=== PATIENT | female | born 1965 | race Caucasian/White ===

== ENCOUNTER 2022-08-04 08:43 | Outpatient (CLI) | payer BC, SELFPAY ==
--- OUTSIDE RECORDS SUMMARY | 2022-08-04 08:45 | XMS_ITS | Encounter Summary ---
:1965 Author Organization [place] Address [address] [facility] [place] [address] Care Team Providers Name Role Phone Sushma Jamison MD Primary Care Provider Unavailable Reason for Visit Auth/Cert Specialty Diagnoses / Procedures Referred By Contact Refer red To Contact Surgery Diagnoses Malignant neoplasm of upper-outer quadrant of left female breast, unspecified estrogen receptor status (H) Status post bilateral mastectomy Sh Periop Services Malignant neoplasm of upper- outer quadrant of left female breast, unspecified estrogen receptor status (H) [C50.412] Status post bilateral mastectomy [Z90.13] [address], [address] Procedures HC REMOVE W/O INSERT PROSTH TISSUE [facility] HC ENLARGE BREAST WITH IMPLANT HC INSERT BREAST PROS IMMED AFTER EXCIS HC DELAY BREAST PROS AFTER BREAST SURG HC BREAST RECONSTRUC W TISS EXPANDR LL2 ZZPR BREAST RECONSTRUCTION W /LATISSIMUS DORSI FLAP ZZPR BREAST RECONSTRUCTION W/FREE FLAP ZZPR BREAST RECONSTRUCTION SINGLE PEDICLED TRAM FLAP ZZPR BREAST RECONSTRUCTION 1PEDICLED TRAM FLAP ANAST ZZPR BREAST RECONSTRUCTION BIPEDICLED TRAM FLAP [place] [id number] HC GRAFTING OF AUTOLOGOUS SO FT TISS BY DIRECT EXC HC GRAFTING OF AUTOLOGOUS FAT BY LIPO 50 CC OR LESS REMOVAL BILATERAL TISSUE EXPANDERS EXCHANGE TISSUE EXPANDERS WITH BILATERAL SILICONE BREAST IMPLANTS BILATERAL BREAST FAT GRAFTING FROM ABDOMEN Phone: Referral ID Status Reason Start Date Expiration Date Visits Requ ested Visits Authorized [id number] 1 1 Encounter Details Date Type Department Care Team Description 03/07/[address] [facility] Radu Vazquez MD [facility] ANESTHESIOLOGISTS [facility] [address] [id number] Cristian MoffettHakeem Mccoy [facility] [address] [place] [address] Anesthesia Record Procedure Summary Procedure Name Responsible Anesthesia Start Anesthesia Stop Time Anesthesiologist Time REMOVAL BILATERAL Radu Vazquez MD 03/07/21 0727 03/07 0951 TISSUE EXPANDERS (Bilateral Breast) Events Date Time Event Comment 03/07/2021 0658 0709 STRADDLE BUG OPERATOR Ready for Procedure 0727 An Start 0727 An Start Data 0731 An Induction 0733 An LMA 0757 AN INCISION 0904 Present 0941 LMA Removed 0943 an stop data 0951 An Stop Electronically s igned by Nancy Nowak APRN CRNA on Feb 9:51 AM Name Total dexamethasone 4mg/mL 8 mg fentaNYL (SUBLIMAZE) injection 100 mcg glycopyrrolate 0.2mg/mL 0.4 mg ketorolac 30mg/mL 15 mg lidocaine 2% 100 mg midazolam 1mg/mL 2 mg ondansetron 2mg/mL 4 mg propofol (DIPRIVAN) injection 10 mg/mL vial 200 mg propofol infusion (mcg/kg/min) 1,174.04 mg ceFAZolin (ANCEF) intermittent infusion 2 g in 100 mL dextrose PRE-MIX 2 g HYDROmorphone 1 mg/mL 1 mg dexmedetomidine (PRECEDEX) 4 mcg/mL bolus 12 mcg rocuronium 10 mg/mL 10 mg neostigmine 1mg/mL 3 mg LR 300 mL Agents Name NO HELIOX O2 N2O Air Exp Sevoflurane Exp Isoflurane Exp Desflurane Exp N2O O2 Delivery Device Ins Sevoflurane Ins Isoflurane Ins Desflurane O2 Auxiliary Blood No blood administrations on file. Lines, Drains, and Airways Type Details Placement Removal Incision/Surgical Site 03/07/21; 0943; 03/07/21 0943 by Bilateral; Breast Becky Nagy RN Incision/Surgical Site 03/07/21; 0943; 03/07/21 0943 by Abdomen Becky Nagy, DEMETRICE Peripheral IV 03/07/21; 0638; 20 G; 03/07/21 0638 by 03/07/21 1242 by Right; Hand Norah Frost RN Murphy, Mel ia, RN Supraglottic Airway Placement Date: 03/07/21 0813 by 03/07/21 09 41 by 03/07/21; Placement Nancy Nowak APRN Dorion, Sarah E, Time: 812 (created NHAN JIMÉNEZ CRNA via procedure documentation); Airway Type: Standard LMA; Mask Ventilation: 0; LMA Size: 4; Airway Brand: LMA Unique; Attempts: 1 documented in this encounter Social History Tobacco Use Types Packs/Day Years Used Date Never Smoker Smokeless Tobacco: Never Used Comments: no 2nd hand Alcohol Use Standard Drinks/Week Comments Yes 0 (1 standard drink = 0.6 oz pure alcoho l) social Alcohol Habits Answer Date Recorded How often do you have a drink containing alcohol? Not asked How many drinks containing alcohol do you have on a typical Not asked day when you are drinking? How often do you have six or more drinks on one occasion? No t asked Comment: social 01/28/2010 Sex Assigned at Date Recorded Not on file COVID-19 Exposure Response Date Recorded In the last month, have you been in contact with No / Unsure 03/07/2021 6:35 AM CDT someone who was confirmed or suspected to have Coronavirus / COVID-19? documented as of this encounter OR Notes Anesthesia Postprocedure Evaluation - Radu Vazquez MD - 03/07/2021 12:53 PM CDT Patient: Sil Power Procedure(s): REMOVAL BILATERAL TISSUE EXPANDERS EXCHANGE TISSUE EXPANDERS WITH BILATERAL SILICONE BREAST IMPLANTS BILATERAL BREAST FAT GRAFTING FROM ABDOMEN Diagnosis:Malignant neoplasm of upper-outer quadrant of left female breast, unspecified estrogen receptor status (H) [C50.412] Status post bilateral mastectomy [Z90.13] Diagnosis Additional Information: No value filed. Anesthesia Type: General Note: Disposition: Outpatient Postop Pain Control: Uneventful Sign Out: Well controlled pain PONV: Neuro/Psych: Uneventful Sign Out: Acceptable/Baseline neuro status Airway/Respiratory: Uneventful Sign Out: Acceptable/Baseline resp. status CV/Hemodynamics: Uneventful Sign Out: Acceptable CV status Other NRE: NONE DID A NON-ROUTINE EVENT OCCUR? No Last vitals: Vitals: 03/07/21 1115 03/07/21 1136 03/07/21 1234 BP: (!) 146/92 (!) 164/90 119/77 Pulse: 83 Resp: 24 16 Temp: SpO2: 95% 95% Last vitals prior to Anesthesia Care Transfer: STRADDLE BUG OPERATOR VITALS 03/07/2021 0913 - 03/07/2021 1013 03/07/2021 Resp Rate (set): 10 Electronically Signed By: Radu Vazquez MD March 07, 2021 12:53 PM Anesthesia Procedure Notes - Nancy Nowak APRN CRNA - 03/07/2021 8:12 AM CDT Associated Order(s): Airway Airway Patient location during procedure: OR Staff - Anesthesiologist: Radu Vazquez MD STRADDLE BUG OPERATOR: Nancy Nowak APRN CRNA Other Anesthesia Staff: Hakeem Persaud Performed By: SRNA Consent for Airway Urgency: elective Indications and Patient Condition Indications for airway management: anastacio-procedural Induction type:intravenous Mask difficulty assessment: 0 - not attempted Final Airway Details Final airway type: supraglottic airway Supraglottic Airway Details Type: LMA Brand: LMA Unique LMA size: 4 Post intubation assessment Placement verified by: capnometry, equal breath sounds and chest rise Number of attempts at approach: 1 Number of other approaches attempted: 0 Secured with: paper tape Ease of procedure: easy Dentition: Intact and Unchanged Anesthesia Preprocedure Evaluation - Radu Vazquez MD - 03/07/2021 6:43 AM CDT Anesthesia Pre-Procedure Evaluation Patient: Sil Power : 1965 Preoperative Diagnosis: Malignant neoplasm of upper-outer quadrant of left female breast, unspecified estrogen receptor status (H) [C50.412] Status post bilateral mastectomy [Z90.13] Procedure : Procedure(s): REMOVAL BILATERAL TISSUE EXPANDERS EXCHANGE TISSUE EXPANDERS WITH BILATERAL SILICONE BREAST IMPLANTS BILATERAL BREAST FAT GRAFTING FROM ABDOMEN Past Medical History: Diagnosis Date ??? ASCUS with positive high risk HPV cervical ??? Bipolar II disorder (H) ??? Cough chronic ??? Diabetes mellitus (H) 2003 ??? Displacement of insulin pump ??? Fibromyalgia ??? Daniela's disease ??? Hyperlipidemia 2008 ??? Hypertension ??? Hypothyroidism 2008 ??? Low back pain ??? Neuropathy ??? Primary cancer of left breast (H) ??? RLS (restless legs syndrome) ??? Uncomplicated asthma ??? Weight gain Past Surgical History: Procedure Laterality Date ??? BIOPSY Left Breast ??? BREAST SURGERY Bilateral Mastectomy Left [place] Node Biopsy- 10/2020 ??? C C-SEC+ CARE,PREV C-SEC X2- 1986 and 2006 ??? SECTION x2 ??? COLPOSCOPY, BIOPSY, COMBINED ??? DILATION AND CURETTAGE x 2, SAB ??? TUBAL LIGATION Allergies Allergen Reactions ??? Oxycodone Anaphylaxis, Nausea and Vomiting, Itching and Difficulty breathing Percocet ??? Phenergan [Promethazine Hcl] Anaphylaxis and Nausea Convulsions; shaking ??? Benadryl [Diphenhydramine] Itching ??? Latex Hives ??? Metformin Diarrhea ??? Nickel Hives ??? Adhesive Tape Rash ??? Insulin Detemir Rash Levemir ??? Novolog [Insulin Aspart] Rash Social History Tobacco Use ??? Smoking status: Never Smoker ??? Smokeless tobacco: Never Used ??? Tobacco comment: no 2nd hand Substance Use Topics ??? Alcohol use: Yes Comment: social Wt Readings from Last 1 Encounters: 03/07/21 78.4 kg (172 lb 14.4 oz) Anesthesia Evaluation Pt has had prior anesthetic. No history of anesthetic complications ROS/MED HX ENT/Pulmonary: (+) Mild Persistent, asthma (-) tobacco use Neurologic: Comment: RLS (-) no seizures, no CVA and migraines Cardiovascular: (+) Dyslipidemia hypertension----- (-) CAD METS/Exercise Tolerance: >4 METS Hematologic: (-) history of blood clots Musculoskeletal: - neg musculoskeletal ROS GI/Hepatic: (-) GERD Renal/Genitourinary: - neg Renal ROS Endo: (+) type II DM, Not using insulin, - not using insulin pump. thyroid problem, hypothyroidism Daniela's, Psychiatric/Substance Use: (+) psychiatric history bipolar Infectious Disease: Malignancy: (+) Malignancy, History of Breast.Breast CA Remission status post Surgery. Other: (-) Any chance Physical Exam Airway Mallampati: II TM distance: > 3 FB Neck ROM: full Mouth opening: > 3 cm Respiratory Devices and Support Dental no notable dental history Cardiovascular cardiovascular exam normal Rhythm and rate: regular Pulmonary pulmonary exam normal breath sounds clear to auscultation OUTSIDE LABS: CBC: Lab Results Component Value Date WBC 8.1 02/11/2012 WBC 7.2 03/21/2010 HGB 14.1 02/11/2012 HGB 13.1 03/21/2010 HCT 42.9 02/11/2012 HCT 39.1 03/21/2010 PLT 324 02/11/2012 PLT 273 03/21/2010 BMP: Lab Results Component Value Date NA 143 02/11/2012 NA 144 09/12/2011 POTASSIUM 4.9 02/11/2012 POTASSIUM 4.7 09/12/2011 CHLORIDE 105 02/11/2012 CHLORIDE 104 09/12/2011 CO2 27 02/11/2012 CO2 30 09/12/2011 BUN 16 02/11/2012 BUN 13 09/12/2011 CR 0.80 02/11/2012 CR 0.76 09/12/2011 GLC 117 (H) 02/11/2012 GLC 205 (H) 09/12/2011 COAGS: Lab Results Component Value Date PTT 31 02/11/2012 INR 1.01 02/11/2012 POC: Lab Results Component Value Date BGM 186 (H) 03/07/2021 HCG Negative 03/07/2021 HCGS Negative 02/11/2012 HEPATIC: Lab Results Component Value Date ALBUMIN 5.0 02/11/2012 PROTTOTAL 8.4 02/11/2012 ALT 64 (H) 02/11/2012 AST 58 (H) 02/11/2012 ALKPHOS 116 02/11/2012 BILITOTAL 0.4 02/11/2012 OTHER: Lab Results Component Value Date A1C 7.6 (H) 02/11/2012 ILEANA 10.1 02/11/2012 PHOS 4.1 02/11/2012 MAG 2.1 02/11/2012 LIPASE 52 03/21/2010 AMYLASE 53 01/22/2010 TSH 2.89 09/12/2011 Anesthesia Plan ASA Status: 2 Anesthesia Type: General. - Airway: LMA Induction: Intravenous, Propofol. Maintenance: Balanced. Consents Anesthesia Plan(s) and associated risks, benefits, and realistic alternatives discussed. Questions answered and patient/bilingual sales representative(s) expressed understanding. - Discussed with: Patient - Extended Intubation/Ventilatory Support Discussed: No. - Patient is DNR/DNI Status: No Use of blood products discussed: Yes. - Discussed with: Patient. - Consented: consented to blood products Reason for refusal: other. Postoperative Care Pain management: Multi-modal analgesia. PONV prophylaxis: Ondansetron (or other 5HT-3), Dexamethasone or Solumedrol Comments: Patient is counseled on the anesthesia plan and relevant anesthesia procedures (vascular lines/blocks/KATH/airway devices) including all risks and benefits. All patient questions were answered. Fentanyl and dilaudid are tolerated by patient. Claustrophobic and will require mask held to side for pre ox. Radu Vazquez MD documented in this encounter Miscellaneous Notes Anesthesia Care Transfer Note - Nancy Nowak APRN STRADDLE BUG OPERATOR - 03/07/2021 9:51 AM CDT Patient: Sil Power Procedure(s): REMOVAL BILATERAL TISSUE EXPANDERS EXCHANGE TISSUE EXPANDERS WITH BILATERAL SILICONE BREAST IMPLANTS BILATERAL BREAST FAT GRAFTING FROM ABDOMEN Diagnosis: Malignant neoplasm of upper-outer quadrant of left female breast, unspecified estrogen receptor status (H) [C50.412] Status post bilateral mastectomy [Z90.13] Diagnosis Additional Information: No value filed. Anesthesia Type: General Note: Oropharynx: oropharynx clear of all foreign objects and spontaneously breathing Level of Consciousness: awake Oxygen Supplementation: nasal cannula Level of Supplemental Oxygen (L/min / FiO2): 3 Independent Airway: airway patency satisfactory and stable Dentition: dentition unchanged Vital Signs Stable: post-procedure vital signs reviewed and stable Report to RN Given: handoff report given Patient transferred to: Phase II Handoff Report: Identifed the Patient, Identified the Reponsible Provider, Reviewed the pertinent medical history, Discussed the surgical course, Reviewed Intra-OP anesthesia mangement and issues during anesthesia, Set expectations for post-procedure period and Allowed opportunity for questions and acknowledgement of understanding Vitals: (Last set prior to Anesthesia Care Transfer) STRADDLE BUG OPERATOR VITALS 03/07/2021 0913 - 03/07/2021 0951 03/07/2021 Resp Rate (set): 10 Electronically Signed By: Nancy Nowak APRN CRNA March 07, 2021 9:51 AM documented in this encounter Plan of Treatment Not on filedocumented as of this encounter Procedures Procedure Name Priority Date/Time Associated Comments Diagnosis ANE AIRWAY Routine 03/07/2021 8:12 AM Results f or this SUPRAGLOTTIC CDT procedure are i n PERFORMABLE the results section. documented in this encounter Results ANE AIRWAY SUPRAGLOTTIC PERFORMABLE (03/07/2021 8:12 AM CDT) Narrative Nancy Nowak APRN CRNA - 03/07/2021 8:12 AM CDT Nancy Nowak APRN CRNA ? 03/07/2021 ??8:13 AM Airway ? Patient location during procedure : OR Staff - ? Anesthesiologist: ??Radu Vazquez MD ? STRADDLE BUG OPERATOR: Nancy Nowak APRN CRNA ? Other Anesthesia Staff: Hakeem Persaud ? Performed By: SRNA Consent for Airway ? Urgency: elective Indications and Patient Condition ? Indications for airway management : anastacio-procedural ? Induction type:intravenous ? Mask difficulty assessment: 0 - n ot attempted Final Airway Details ? Final airway type: supraglottic a irway Supraglottic Airway Details ? Type: LMA ? Brand: LMA Unique ? LMA size: 4 Post intubation assessment ? Placement verified by: capnometry , equal breath sounds and chest rise ? Number of attempts at approach: 1 ? Number of other approaches attemp ishmael: 0 ? Secured with: paper tape ? Ease of procedure: easy ? Dentition: Intact and Unchanged Nancy Nowak APRN, CRNA [place] ANESTHESIA documented in this encounter Visit Diagnoses Not on filedocumented in this encounter Administered Medications Inactive Administered Medications - up to 3 most recent administrations Medication Order MAR Action Action Date Dose Rate Site ceFAZolin (ANCEF) intermittent Given 03/07/2021 7:36 AM CDT 2 g infusion 2 g in 100 mL dextrose PRE-MIX Routine, 2 g, Intravenous, PRE-OP/PRE-PROCEDURE, Starting on Shira 03/07/21 at 0533, For 1 dose, Give first dose within 1 hour PRIOR to incision. If patient weight is greater than or equal to 120 kg increase dose to 3 g., Indications: Perioperative Pharmacoprophylaxis, Pre-procedure dexamethasone (DECADRON) injection Given 03/07/2021 7:48 AM CDT 8 mg PRN, Administer over 1 Minutes, Starting on Shira 03/07/21 at 0748, Anesthesia Intra-op dexmedetomidine (PRECEDEX) 4 mcg/mL bolu s New Bag 03/07/2021 8:04 AM CDT 12 mcg CONTINUOUS PRN, Starting on Shira 03/07/21 at 0804, Anesthesia Intra-op fentaNYL (PF) (SUBLIMAZE) injection Given 03/07/2021 8:02 AM CDT 50 mcg PRN, Administer over 3-5 Minutes, Starting on Shira 03/07/21 at 0731, Anesthesia Intra-op Given 03/07/2021 7:31 AM CDT 50 mcg glycopyrrolate (ROBINUL) injection Given 03/07/2021 9:33 AM CDT 0.4 mg PRN, Administer over 1-2 Minutes, Starting on Shira 03/07/21 at 0933, Anesthesia Intra-op HYDROmorphone (DILAUDID) injection Given 03/07/2021 9:49 AM CDT 0.5 mg PRN, Starting on Shira 03/07/21 at 0755, Anesthesia Intra-op Given 03/07/2021 7:55 AM CDT 0.5 mg ketorolac (TORADOL) injection Given 03/07/2021 9:33 AM CDT 15 mg PRN, Administer over 2 Minutes, Starting on Shira 03/07/21 at 0933, Anesthesia Intra-op lactated ringers infusion New Bag 03/07/2021 8:58 AM CDT Intravenous, CONTINUOUS PRN, Anesthesia Intra-op, Starting on Shira 03/07/21 at 0727, Until Shira 4/22/21 at 0951 New Bag 03/07/2021 7:27 AM CDT lidocaine 2% injection (MDV) Given 03/07/2021 7:31 AM CDT 100 mg PRN, Starting on Shira 03/07/21 at 0731, Anesthesia Intra-op midazolam (VERSED) injection Given 03/07/2021 7:28 AM CDT 2 mg Administer over 2 Minutes, PRN, Starting on Shira 03/07/21 at 0728, Anesthesia Intra-op neostigmine (PROSTIGMINE) injection Given 03/07/2021 9:33 AM CDT 3 mg PRN, Starting on Shira 03/07/21 at 0933, Anesthesia Intra-op ondansetron (ZOFRAN) injection Given 03/07/2021 9:06 AM CDT 4 mg PRN, Administer over 2-5 Minutes, Starting on Shira 03/07/21 at 0906, Anesthesia Intra-op propofol (DIPRIVAN) infusion Rate/Dose 03/07/2021 9:24 75 mcg/kg/min 35.3 mL/hr Intravenous, CONTINUOUS PRN, Change AM CDT Starting on Shira 03/07/21 at 0737, Anesthesia Intra-op Rate/Dose Change 03/07/2021 9:04 AM CDT 100 mcg/kg/min 47 mL/hr New Bag 03/07/2021 9:03 AM CDT 125 mcg/kg/min 58.8 mL/hr propofol (DIPRIVAN) injection 10 mg/mL v ial Given 03/07/2021 7:31 AM CDT 200 mg PRN, Starting on Shira 03/07/21 at 0731, Anesthesia Intra-op rocuronium injection Given 03/07/2021 8:33 AM CDT 10 mg PRN, Starting on Shira 03/07/21 at 0833, Anesthesia Intra-op documented in this encounter Care Teams Midlevel Provider Relationship Specialty Start Date End Date Sushma Jamison MD PCP - General Family Medicine 02/22/21 [address] [place] [address] documented as of this encounter
--- OUTSIDE RECORDS SUMMARY | 2022-08-04 08:45 | XMS_ITS | Encounter Summary ---
:1965 Author Organization [place] Address [address] [facility] [place] [address] Care Team Providers Name Role Phone Cedric Friedman MD Primary Care Provider Encounter Details Date Type Department Care Team Description 04/20/2012 Medical Correspondence [facility] Frw, None Diabetes [facility] in [place] Consultat ion Form : Medical Records [facility] [address] [place] [address] Social History Tobacco Use Types Packs/Day Years [...] Assigned at Date Recorded Not on file documented as of this encounter Plan of Treatment Not on filedocumented as of this encounter Visit Diagnoses Not on filedocumented in this encounter Care Teams Assistant Pressman Relationship Specialty Start Date End Date Cedric Friedman MD PCP - General 05/30/09 02/21/21 [facility] [address] [address] documented as of this encounter
--- OUTSIDE RECORDS SUMMARY | 2022-08-04 08:45 | XMS_ITS | Clinical Summary ---
:1965 Author Organization [place] Address Formerly [facility], later [facility] [place] [address] Care Team Providers Name Role Phone Sushma Jamison MD Primary Care Provider Unavailable Allergies Active Allergy Reactions Severity Noted Date Comments Adhesive Tape Rash Low 03/02/2021 Diphenhydramine Itching 03/02/2021 Insulin Detemir Rash Low 03/02/2021 Levemir Latex Hives 03/02/2021 Metformin Diarrhea 07/26/2010 Nickel Hives 03/02/2021 Insulin Aspart Rash Low 03/02/2021 Oxycodone Anaphylaxis, Nausea and High 03/21/2010 Perc ocet Vomiting, Itching, Difficulty breathing Promethazine Hcl Anaphylaxis, Nausea High 05/25/2009 Conv ulsions; shaking Medications Medication Sig Dispensed Refills Start Date End Date Status ASPIRIN 81 MG OR ONE DAILY 100 3 08/21/2009 Ac tive TABSIndications: Diabetes mellitus, type 2 (H) albuterol (PROVENTIL Inhale 2 puffs 1 Inhaler 2 03/27/2011 Active HFA: VENTOLIN HFA) 108 into the lungs (90 BASE) MCG/ACT every 6 hours. inhalerIndications: Acute upper respiratory infections of unspecified site ORDER FOR Glucose monitoring test strips and ron ts. ONE TOUCH TEST STRIPS 100 each 5 08/14/2011 Active DMEIndications: Test 2 times daily. . GRUPO: 99 Diabetes mellitus, Insulin dependent: NO type 2 (H) Dx Code: 250.00BC Diabetes mellitus, type 2 ALPRAZolam (XANAX) Take 1 tablet by 30 tablet 0 02/12/2012 Active 0.25 MG mouth 3 times tabletIndications: JESSICA daily as needed (generalised anxiety for anxiety. disorder) amitriptyline (ELAVIL) Take 50 mg by 0 Active 50 MG tablet mouth At Bedtime empagliflozin Take 25 mg by 0 Ac tive (JARDIANCE) 25 MG TABS mouth daily tablet fluticasone-salmeterol Inhale 1 puff into 0 Active (ADVAIR) 500-50 the lungs 2 times MCG/DOSE inhaler daily glipiZIDE (GLUCOTROL Take 2.5 mg by 0 Active XL) 2.5 MG 24 hr mouth daily tablet HYDROcodone-acetaminop Take 1-2 tablets 0 Active hen (NORCO) 5-325 MG by mouth every 6 tablet hours as needed for severe pain lamoTRIgine (LAMICTAL) Take 200 mg by 0 Active 200 MG tablet mouth daily levothyroxine Take 100 mcg by 0 Active (SYNTHROID/LEVOTHROID) mouth daily 100 MCG tablet lisinopril (ZESTRIL) Take 2.5 mg by 0 Active 2.5 MG tablet mouth daily lithium ER (LITHOBID) Take 300 mg by 0 Active 300 MG CR tablet mouth At Bedtime pioglitazone (ACTOS) Take 30 mg by 0 Active 30 MG tablet mouth daily senna-docusate Take 1 tablet by 0 Active (SENOKOT-S/PERICOLACE) mouth 2 times 8.6-50 MG tablet daily simvastatin (ZOCOR) 80 Take by mouth At 0 Active MG tablet Bedtime tamoxifen (NOLVADEX) Take by mouth 0 Active 20 MG tablet daily traZODone (DESYREL) 50 Take 25-150 mg by 0 Active MG tablet mouth nightly as needed for sleep senna-docusate Take 1-2 tablets 30 tablet 0 03/07/2021 Active (SENOKOT-S/PERICOLACE) by mouth 2 times 8.6-50 MG daily tabletIndications: Status post breast reconstruction traMADol (ULTRAM) 50 Take 1 tablet (50 30 tablet 0 03/07/2021 Active MG tabletIndications: mg) by mouth every Status post breast 6 hours as needed reconstruction for severe pain Active Problems Problem Noted Date Diabetes mellitus, type 2 05/25/2009 Hypothyroidism 05/25/2009 Mixed hyperlipidemia 05/25/2009 Immunizations Name Administration Dates Next Due Influenza (IIV3) PF 08/14/2011 TDAP Vaccine (Adacel) 03/08/2012 Family History Medical History Relation Comments Cerebrovascular Disease Maternal Grandmother Cerebrovascular Disease Maternal Uncle Diabetes Maternal Uncle Hypertension Mother Lipids Mother C.A.D. No family hx of Unknown/Adopted No family hx of for Biological Fathe r's side of family Relation Status Comments Brother Alive Daughter Alive Father Alive Maternal Grandmother Maternal Uncle Mother Alive Son Alive Social History Tobacco Use Types Packs/Day Years [...] Assigned at Date Recorded Not on file Last Filed Vital Signs Vital Sign Reading Time Taken Comments Blood Pressure 119/77 03/07/2021 12:34 PM CDT Pulse 83 03/07/2021 11:15 AM CDT Temperature 36.2 ??C (97.1 ??F) 03/07/2021 9:45 AM CDT Respiratory Rate 16 03/07/2021 12:34 PM CDT Oxygen Saturation 95% 03/07/2021 12:34 PM CDT Inhaled Oxygen Concentration - - Weight 78.4 kg (172 lb 14.4 oz) 03/07/2021 5:44 AM CDT Height 165.1 cm (5' 5) 03/07/2021 5:44 AM CDT Body Mass Index 28.77 03/07/2021 5:44 AM CDT Plan of Treatment Health Maintenance Due Date Last Done Comments ADVANCE CARE PLANNING 1965 ANNUAL REVIEW OF HM ORDERS 1966 CT COLONOGRAPHY 1966 EYE EXAM 1966 FIT-DNA (Cologuard) 1965 FLEX SIG 1966 COLONOSCOPY 1976 HIV SCREENING 1981 HEPATITIS C SCREENING 1984 HEPATITIS B IMMUNIZATION (1 1985 of 3 - Risk 3-dose series) DIABETIC FOOT EXAM 02/21/2012 02/20/2011 PREVENTIVE CARE VISIT 02/21/2012 02/20/2011, 01/28/2010 A1C 08/13/2012 02/11/2012, 09/12/2011, 02/06/2011, Additional history exists MICROALBUMIN 09/12/2012 09/12/2011, 02/06/2011, 07/30/2010, Additional history exists TSH W/FREE T4 REFLEX 09/12/2012 09/12/2011, 02/06/2011, 07/30/2010, Additional history exists LIPID 10/23/2012 10/23/2011, 09/12/2011, 02/06/2011, Additional history exists BMP 02/10/2013 02/11/2012, 09/12/2011, 02/06/2011, Additional history exists Pneumococcal Vaccine: 02/04/2014 02/04/2013 Pediatrics (0 to 5 Years) and At-Risk Patients (6 to 64 Years) (2 - PCV) PAP 02/20/2014 02/20/2011, 01/28/2010 COVID-19 Vaccine (2 - 03/07/2021 02/14/2021 Pfizer series) PHQ-2 (once per calendar 11/16/2021 year) COLORECTAL CANCER SCREENING 02/14/2022 FIT 02/14/2022 02/14/2021 DTAP/TDAP/TD IMMUNIZATION 03/08/2022 03/08/2012, 11/16/2006 (2 - Td or Tdap) INFLUENZA VACCINE (#1) 2022 08/16/2020, 08/03/2019, 08/12/2018, Additional history exists ZOSTER IMMUNIZATION Completed 12/13/2020, 08/16/2020 IPV IMMUNIZATION Aged Out No longer eligi ble based on patient 's age to complete this topic MENINGITIS IMMUNIZATION Aged Out No longe r eligible based on patient 's age to complete this topic Medical Devices Implanted Type Area Humane Officer Device Identifier Shelf Model / Expiration Serial / Lot Date Natrelle Inspira Breast Implant / Smooth Round Full Profile / 69 5cc Left: ALLERGAN [id number] 07/30/2025 SCF-695 / Implanted: Qty: 1 on 03/07/2021 by Salma Alfaro MD at [facility] Breast [id number] / Explanted Type Area Humane Officer Device Shelf Model / Identifier Expiration Date Ser ial / Lot Explanted Bilateral Tissue Expanders Bilateral: Explanted: Qty: 2 on 03/07/2021 by Salma Alfaro MD at [facility] Breast Insurance Payer Benefit Plan / Subscriber ID Effective Dates Phone Addre ss Type Group BCBS [place] OF [place] [id number] 2009-Dewayne [phone] [address] [address] Indemnity t 0 [place] [id number] [employer] Personal/Famil Self [address] [place] [id number] Care Teams Cutter Operator Tile Relationship Specialty Start Date End Date Sushma Jamison MD PCP - General Family Medicine 02/22/21 [address] [place] [address]
--- OUTSIDE RECORDS SUMMARY | 2022-08-04 08:45 | XMS_ITS | Encounter Summary ---
:1965 Author Organization [place] Address Counts include 234 beds at the [facility] [place] [address] Care Team Providers Name Role Phone Cedric Firedman MD Primary Care Provider Reason for Referral - Closed Specialty Diagnoses / Procedures Referred By Contact Refer red To Contact Diagnoses Postnasal drip Cedric Friedman MD [facility] [address] [place] [address] Referral ID Status Reason Start Date Expiration Date Visits Requ ested Visits Authorized [id number] Closed 06/07/2012 12/04/2012 1 1 Reason for Visit Reason Onset Date Comments Referral 06/07/2012 ENT external Encounter Details Date Type Department Care Team Description 06/07/2012 Telephone [facility] Cedric Friedman, Refer ral (ENT external) System in [place] MD Family Practice [facility] [address] [place] [address] [address] [place], [place] [address] Social History Tobacco Use Types Packs/Day Years [...] on file documented as of this encounter Miscellaneous Notes Telephone Encounter - Zaida Martin RN - 06/07/2012 10:13 AM CDT Pt is requesting external referral to [facility] [place] for E[place] Pt reports cough has not improved after cough RX that was prescribed 03/18/2012 by PCP. Referral placed and faxed to patient's fax number [phone] documented in this encounter Plan of Treatment Not on filedocumented as of this encounter Visit Diagnoses Diagnosis Postnasal drip - Primary documented in this encounter Care Teams Contract Paralegal Relationship Specialty Start Date End Date Cedric Friedman MD PCP - General 05/30/09 02/21/21 [facility] [address] [place] [address] documented as of this encounter
--- OUTSIDE RECORDS SUMMARY | 2022-08-04 08:45 | XMS_ITS | Encounter Summary ---
:1965 Author Organization [facility] Address [address] [place] [address] Care Team Providers Name Role Phone Sushma Jamison MD Primary Care Provider Unavailable Reason for Visit Auth/Cert Specialty Diagnoses / Procedures Referred By Contact Refer red To Contact Surgery Diagnoses Malignant neoplasm of upper-outer quadrant of left female breast, unspecified estrogen receptor status (H) Status post bilateral mastectomy Periop Services Malignant neoplasm of upper- outer quadrant of left female breast, unspecified estrogen receptor status (H) [C50.412] Status post bilateral mastectomy [Z90.13] [address] REMOVE W/O INSERT PROSTH TISSUE SCOUT SNIPER HC ENLARGE BREAST WITH IMPLANT HC INSERT BREAST PROS IMMED AFTER EXCIS HC DELAY BREAST PROS AFTER BREAST SURG HC BREAST RECONSTRUC W TISS EXPANDR LL2 ZZPR BREAST RECONSTRUCTION W /LATISSIMUS DORSI FLAP ZZPR BREAST RECONSTRUCTION W/FREE FLAP ZZPR BREAST RECONSTRUCTION SINGLE PEDICLED TRAM FLAP ZZPR BREAST RECONSTRUCTION 1PEDICLED TRAM FLAP ANAST ZZPR BREAST RECONSTRUCTION BIPEDICLED TRAM FLAP [place] [id number] HC GRAFTING OF AUTOLOGOUS SO FT TISS BY DIRECT EXC HC GRAFTING OF AUTOLOGOUS FAT BY LIPO 50 CC OR LESS REMOVAL BILATERAL TISSUE EXPANDERS EXCHANGE TISSUE EXPANDERS WITH BILATERAL SILICONE BREAST IMPLANTS BILATERAL BREAST FAT GRAFTING FROM ABDOMEN Phone: Referral ID Status Reason Start Date Expiration Date Visits Requ ested Visits Authorized [id number] 1 1 Encounter Details Date Type Department Care Team Description 03/07/2021 Surgery [facility] Rahul Carmona MD REMOVAL BILATERAL [place] PeriOP [place] [facility]G TISSUE EXPANDERS Services [address] [facility] [address] [place] [address] [place] [id number] [phone] Surgery Details Date/Time Status Location OR Service Patient Case Case Traum a Class Class Type Case? 03/07/21 7:30 Posted SH OR [facility] AM 30 Reconstruction Surgery Panel 1 Procedure LRB Anes Op Region Wound Class Commen ts REMOVAL BILATERAL TISSUE EXPANDERS Bilateral General Breast I -Clean EXCHANGE TISSUE EXPANDERS WITH Bilateral General Breast I-Tyree an BILATERAL SILICONE BREAST IMPLANTS BILATERAL BREAST FAT GRAFTING FROM Bilateral General Update I -Clean ABDOMEN Surgeon Surgeon Role Service Panel Salma Carmona MD Primary Plastics & Reconstruction 1 Lenore Harris PA-C Assisting Educational Speech Language Clinician Authorization 1 Special Needs Office will call back fat grafting donor site per [place] 2.5 HRS DRS TIME REQUESTED documented in this encounter Social History Tobacco [...] / COVID-19? documented as of this encounter Last Filed Vital Signs Vital Sign Reading Time Taken Comments Blood Pressure 146/91 03/07/2021 9:45 AM CDT Pulse 71 03/07/2021 9:45 AM CDT Temperature 36.2 ??C (97.1 ??F) 03/07/2021 9:45 AM CDT Respiratory Rate 14 03/07/2021 9:45 AM CDT Oxygen Saturation 100% 03/07/2021 9:45 AM CDT Inhaled Oxygen Concentration - - Weight 78.4 kg (172 lb 14.4 oz) 03/07/2021 5:44 AM CDT Height 165.1 cm (5' 5) 03/07/2021 5:44 AM CDT Body Mass Index 28.77 03/07/2021 5:44 AM CDT documented in this encounter Discharge Instructions Discharge InstructionsLayla Bates RN - 03/07/2021 10:40 AM CDT Today you received Toradol, an antiinflammatory medication similar to Ibuprofen. You should not takeother antiinflammatory medication, such as Ibuprofen, Motrin, Advil, Aleve, Naprosyn, etc until 3:30pm . Same Day Surgery Discharge Instructions for Sedation and General Anesthesia ?? It's not unusual to feel dizzy, light-headed or faint for up to 24 hours after surgery or while taking pain medication. If you have these symptoms: sit for a few minutes before standing and have someone assist you when you get up to walk or use the bathroom. ?? You should rest and relax for the next 24 hours. We recommend you make arrangements to have an adult stay with you for at least 24 hours after your discharge. Avoid hazardous and strenuous activity. ?? DO NOT DRIVE any vehicle or operate mechanical equipment for 24 hours following the end of your surgery. Even though you may feel normal, your reactions may be affected by the medication you have received. ?? Do not drink alcoholic beverages for 24 hours following surgery. ?? Slowly progress to your regular diet as you feel able. It's not unusual to feel nauseated and/or vomit after receiving anesthesia. If you develop these symptoms, drink clear liquids (apple juice, abraham loreta, broth, 7-up, etc. ) until you feel better. If your nausea and vomiting persists for 24 hours, please notify your surgeon. ?? All narcotic pain medications, along with inactivity and anesthesia, can cause constipation. Drinking plenty of liquids and increasing fiber intake will help. ?? For any questions of a medical nature, call your surgeon. ?? Do not make important decisions for 24 hours. ?? If you had general anesthesia, you may have a sore throat for a couple of days related to the breathing tube used during surgery. You may use Cepacol lozenges to help with this discomfort. If it worsens or if you develop a fever, contact your surgeon. ?? If you feel your pain is not well managed with the pain medications prescribed by your surgeon, please contact your surgeon's office to let them know so they can address your concerns. CoVid 19 Information We want to give you information regarding Covid. Please consult your primary care provider with any questions you might have. Patient who have symptoms (cough, fever, or shortness of breath), need to isolate for 7 days from when symptoms started OR 72 hours after fever resolves (without fever reducing medications) AND improvement of respiratory symptoms (whichever is longer). ?? Isolate yourself at home (in own room/own bathroom if possible) ?? Do Not allow any visitors ?? Do Not go to work or school ?? Do Not go to christian, child and family services specialist centers, shopping, or other public places. ?? Do Not shake hands. ?? Avoid close and intimate contact with others (hugging, kissing). ?? Follow CDC recommendations for household cleaning of frequently touched services. After the initial 7 days, continue to isolate yourself from household members as much as possible. To continue decrease the risk of community spread and exposure, you and any members of your household should limit activities in public for 14 days after starting home isolation. You can reference the following CDC link for helpful home isolation/care tips: https://www.cdc.gov/coronavirus/2019-ncov/downloads/10Things.pdf Protect Others: ?? Cover Your Mouth and Nose with a mask, disposable tissue or wash cloth to avoid spreading germs to others. ?? Wash your hands and face frequently with soap and water Call Your Primary Doctor If: Breathing difficulty develops or you become worse. For more information about COVID19 and options for caring for yourself at home, please visit the CDCwebsite at https://www.cdc.gov/coronavirus/2019-ncov/about/mznmp-rnkq-visg.html For more options for care at [facility], please visit our website at [email or web address] Today you were given 1000 mg of Tylenol at 630. The recommended daily maximum dose is 4000 mg. documented in this encounter Medications at Time of Discharge Medication Sig Dispensed Refills Start Date End Date albuterol (PROVENTIL HFA: Inhale 2 puffs into 1 Inhaler 2 0 03/27/2011 VENTOLIN HFA) 108 (90 the lungs every 6 BASE) MCG/ACT hours. inhalerIndications: Acute upper respiratory infections of unspecified site ALPRAZolam (XANAX) 0.25 Take 1 tablet by 30 tablet 0 2011 MG tabletIndications: JESSICA mouth 3 times daily (generalised anxiety as needed for disorder) anxiety. amitriptyline (ELAVIL) 50 Take 50 mg by mouth 0 MG tablet At Bedtime ASPIRIN 81 MG OR ONE DAILY 100 3 08/21/2009 TABSIndications: Diabetes mellitus, type 2 (H) empagliflozin (JARDIANCE) Take 25 mg by mouth 0 25 MG TABS tablet daily fluticasone-salmeterol Inhale 1 puff into 0 (ADVAIR) 500-50 MCG/DOSE the lungs 2 times inhaler daily glipiZIDE (GLUCOTROL XL) Take 2.5 mg by mouth 0 2.5 MG 24 hr tablet daily HYDROcodone-acetaminophen Take 1-2 tablets by 0 (NORCO) 5-325 MG tablet mouth every 6 hours as needed for severe pain lamoTRIgine (LAMICTAL) Take 200 mg by mouth 0 200 MG tablet daily levothyroxine Take 100 mcg by 0 (SYNTHROID/LEVOTHROID) mouth daily 100 MCG tablet lisinopril (ZESTRIL) 2.5 Take 2.5 mg by mouth 0 MG tablet daily lithium ER (LITHOBID) 300 Take 300 mg by mouth 0 MG CR tablet At Bedtime ORDER FOR DMEIndications: Glucose monitoring test stri ps and lancets. ONE TOUCH TEST STRIPS 100 each 5 08/14/2011 Diabetes mellitus, type 2 Test 2 times daily. . GRUPO: 99 (H) Insulin dependent: NO Dx Code: 250.00BC Diabetes mellitus, type 2 pioglitazone (ACTOS) 30 Take 30 mg by mouth 0 MG tablet daily senna-docusate Take 1-2 tablets by 30 tablet 0 03/07/2021 (SENOKOT-S/PERICOLACE) mouth 2 times daily 8.6-50 MG tabletIndications: Status post breast reconstruction senna-docusate Take 1 tablet by 0 (SENOKOT-S/PERICOLACE) mouth 2 times daily 8.6-50 MG tablet simvastatin (ZOCOR) 80 MG Take by mouth At 0 tablet Bedtime tamoxifen (NOLVADEX) 20 Take by mouth daily 0 MG tablet traMADol (ULTRAM) 50 MG Take 1 tablet (50 30 tablet 0 03/07 tabletIndications: Status mg) by mouth every 6 post breast hours as needed for reconstruction severe pain traZODone (DESYREL) 50 MG Take 25-150 mg by 0 tablet mouth nightly as needed for sleep sulfamethoxazole-trimetho Take 1 tablet by 14 tablet 0 02/1503/14/2021 prim (BACTRIM DS) 800-160 mouth 2 times daily MG tabletIndications: for 7 days Status post breast reconstruction documented as of this encounter H&P Notes Radu Vazquez MD - 03/07/2021 6:38 AM CDT I have reviewed the surgical (or preoperative) H&P that is linked to this encounter, and examined the patient. There are no significant changes Source Note - Todd, Provider - 03/04/2021 9:48 AM CDT documented in this encounter Nursing Notes Norah Frost RN - 03/07/2021 10:14 AM CDT Assumed cares while primary nurse went on an afternoon break from 1015 to 1030. documented in this encounter Miscellaneous Notes Op Note - Salma Carmona MD - 03/07/2021 9:57 AM CDT Procedure Date: 03/07/2021 PREOPERATIVE DIAGNOSES: 1. Personal history of breast cancer. 2. Bilateral acquired breast absence post-mastectomy and immediate prepectoral tissue state farm agent breast reconstruction with AlloDerm. 3. Breast implant status. POSTOPERATIVE DIAGNOSES: 1. Personal history of breast cancer. 2. Bilateral acquired breast absence post-mastectomy and immediate prepectoral tissue state farm agent breast reconstruction with AlloDerm. 3. Breast implant status. PROCEDURES: 1. Bilateral removal of tissue expanders and exchange for silicone breast implants. 2. Bilateral breast fat grafting, donor site abdomen (total grafted right breast 60 mL, left breast 10 mL). DRAINAGE TYPE: None. SURGEON: Salma Carmona MD MAXILLOFACIAL PROSTHODONTIST: ANAHI Prado PA-C, was present and scrubbed for the entire procedure and assisted with dissection, retraction and closure. There were no other qualified trainees or other assistants available and the presence of Kika Harris PA-C, was necessary due to inability to retract and dissect without an tax assistant. INDICATIONS: The patient is a 55-year-old female with a personal history of breast cancer. She underwent bilateral skin-sparing mastectomies and immediate prepectoral tissue state farm agent breast reconstruction with AlloDerm. She is coming today for the second stage of her breast reconstruction, which will involve implant exchange and fat grafting. A written witnessed informed consent was obtained preoperatively. DESCRIPTION OF PROCEDURE: The patient was identified and marked in the preoperative holding area. She was taken to the operating room and placed supine on the operating table. Sequential compression devices were applied to the lower extremities. After successful general anesthesia and endotracheal intu bation, the patient was prepared and draped in the usual sterile fashion. An intentional pause was then performed confirming the patient's identity, the procedure to be performed, the laterality, the patient's allergies, and the administration of the necessary antibiotics by Anesthesia. I initially turned my attention to the abdomen where 2 small stab incisions were made with an 11 blade at 12 o'clock and 6 o'clock along the umbilicus. Tumescent solution was then infiltrated subcutaneously. In the meantime, I turned my attention to the breasts. First on the left side, the mastectomy scar was incised through the dermis with a #10 blade. Electrocautery was then used to dissect the subcutaneous tissues and incise the AlloDerm. The tissue state farm agent was removed. It was found to be intactwith all tabs present. The AlloDerm was well incorporated. I performed a medial and superior capsulotomy. I then tried on the left side a Natrelle silicone gel sizer full profile with a volume of 650 mL. The skin was temporarily closed with damien. I then turned my attention to the right side where here again, the mastectomy scar was incised through the dermis with a #10 blade. Following this, I used the electrocautery to dissect the subcutaneoustissues and expose the AlloDerm. The AlloDerm was then incised with electrocautery. The tissue state farm agent was removed and it was found to be intact with all tabs present as well. Following this, I performed a medial and superior capsulotomy with the electrocautery. Careful hemostasis was obtained. I then placed on the right side a Natrelle silicone gel sizer full profile of a volume of 605 mL. The skinwas temporarily closed with damien. In supine position, it was found that the left side was still lacking projection because of a chest wall asymmetry with a sharp angulation of the ribs on the left side, leading to the implant falling laterally. Given this, the left sizer was removed and I performed a popcorn capsulorrhaphy laterally on the left side. Following this, I then tried on the left side a Natrelle silicone gel sizer full profile of a volume of 695 mL. These 2 maneuvers completely corrected be symmetry and projection. The patient was then brought to the sitting position and overall the symmetry was found to be excellent. She was returned to the supine position. I then turned my attention to the abdomen and performed liposuction using a 4 mm liposuction cannula, both on the lower and upper abdomen. The fat was collected in the [employer] system and then processed. After processing, we retrieved 140 mL of fat. This was transferred to 10 mL syringes. I then turnedmy attention to the breast. Again, both sizers were removed. Both prepectoral pockets were then irrigated with half strength Betadine, which was soaked for 3 minutes on each side. Following this, the skin was prepared with Betadine and protected with blue towels. I then changed my gloves and inserted on the left side a Natrelle Inspira cohesive breast implant, style SCF-695 with a serial number of [id number]. On the right side, I inserted a Natrelle Inspira cohesive breast implant, style SCF-605 with a serial number of [id number]. On both sides, the Alloderm was then closed onto itself with a running 2-0 Vicryl and we then closed the incisions with deep dermal 3-0 Monocryl followed by a subcuticular 4-0 Monocryl. The patient was then brought to the sitting position for fat grafting. I used a Raleigh cannula to inject the fat on the right side. The upper inner quadrant was grafted with 50 mL with an emphasis on the uppermost portion, which had a concavity. The remaining 20 mL were grafted on the upper outer quadrant of the right breast for a total injected on the right side of 60 mL. On the left side, only the lower inner quadrant required fat grafting and 10 mL were injected there. The patient was returned to the supine position. The umbilical incisions were closed with deep dermal 4-0 Monocryl. On the breast, incisions were covered with Xeroform gauze, abdominal pads and the patient was placed in a surgical bra. The abdomen was covered with gauze, TopiFoam and an abdominal binder. At the end of the procedure, all sponge, needle and instrument counts were correct. The patient was awakened and sent to the recovery room in satisfactory condition. I was present for the entire case. Salma Carmona MD MT: PAKAR Name: JENNIFER JOCE D. Account: [id number] : 1965 Procedure Date: 03/07/2021 Document: [id number] documented in this encounter Plan of Treatment Not on filedocumented as of this encounter Procedures Procedure Name Priority Date/Time Associated Diagnosis Comme nts GLUCOSE BY METER Routine 03/07/2021 10:04 Status post breast R esults for this AM CDT reconstruction procedure are in the results section. FAT GRAFT, BREAST 03/07/2021 7:27 AM Malignant neoplas m of CDT upper-outer quadrant of left female breast, unspecified estrogen receptor status (H) Status post bilateral mastectomy Special Needs Office will call back fat gr afting donor site per [place] 2.5 HRS DRS TIME REQUESTED RECONSTRUCTION, BREAST, 03/07/2021 7:27 AM CDT Maligna nt neoplasm of BILATERAL, WITH BREAST IMPLANT upper-oute r quadrant of INSERTION left female breast, unspecified estrogen receptor status (H) Status post bilateral mastectomy Special Needs Office will call back fat gr afting donor site per [place] 2.5 HRS DRS TIME REQUESTED REMOVAL, TISSUE SCOUT SNIPER, 03/07/2021 7:27 AM CDT Shaheed molina neoplasm of BREAST upper-outer quadrant of left female breast, unspecified estrogen recepto r status (H) Status post bilateral mastectomy Special Needs Office will call back fat gr afting donor site per [place] 2.5 HRS DRS TIME REQUESTED GLUCOSE BY METER Routine 03/07/2021 6:20 AM CDT R esults for this procedure are in the results section. HCG QUALITATIVE URINE STAT 03/07/2021 5:43 AM CDT documented in this encounter Results (ABNORMAL) Glucose by meter (03/07/2021 10:04 AM CDT) athologist Signature Glucose 192 (H) 70 - 99 03/07/2021 POINT OF CARE mg/dL 10:10 AM CDT TEST, GLUCOSE Specimen Anatomical Collection Method Collection Time Receive d Time (Source) Location / / Volume Laterality 03/07/2021 10:04 03/07/2021 AM CDT 10:10 AM CDT Salma Carmona MD LAB - [place] POCT Performing Organization Address City/State/ZIP Code Phon e Number [facility] POINT OF CARE TEST, GLUCOSE POINT OF CARE TEST, GLUCOSE (ABNORMAL) Glucose by meter (03/07/2021 6:20 AM CDT) athologist Signature Glucose 186 (H) 70 - 99 03/07/2021 POINT OF CARE mg/dL 6:27 AM CDT TEST, GLUCOSE Specimen Anatomical Collection Method Collection Time Receive d Time (Source) Location / / Volume Laterality 03/07/2021 6:20 AM 6:27 CDT AM CDT Salma Carmona MD LAB - [place] POCT Performing Organization Address City/State/ZIP Code Phon e Number [facility] POINT OF CARE TEST, GLUCOSE POINT OF CARE TEST, GLUCOSE HCG qualitative urine (03/07/2021 5:43 AM CDT) athologist Signature HCG Qual Urine Negative NEG^Negati 03/07/2021 [facility] ve 5:50 AM CDT [facility] Comment: This test is for screening purposes. ??R esults should be interpreted along with the clinical picture. ??Confirmation te sting is available if warranted by ordering [id number], HCG Quantitative Pregna ncy. Specimen Anatomical Collection Method Collection Time Receive d Time (Source) Location / / Volume Laterality Urine URINE SPECIMEN / 03/07/2021 5:43 AM 03/07 5:45 Unknown CDT AM CDT Radu Vazquez MD LAB - URINE ORDERABLES Performing Organization Address City/State/ZIP Code Phon e Number [facility] [address] [place] [id number] [phone] [facility] [address] [place] [address], [place] [phone] documented in this encounter Visit Diagnoses Diagnosis Status post breast reconstruction - Prim dora Breast replaced by other means Malignant neoplasm of upper-outer quadra nt of left female breast, unspecified estrogen receptor status (H) Status post bilateral mastectomy Acquired absence of breast and nipple documented in this encounter Administered Medications Inactive Administered Medications - up to 3 most recent administrations Medication Order MAR Action Action Date Dose Rate Site acetaminophen (TYLENOL) tablet Given 03/07/2021 6:15 AM CDT 1,00 0 mg 1,000 mg 1,000 mg, Oral, ONCE, On Shira 03/07/21 at 0600, For 1 dose, Maximum acetaminophen dose from all sources = 75 mg/kg/day not to exceed 4 gram, Pre-procedure acetaminophen (TYLENOL) tablet 650 mg 650 mg, Oral, ONCE PRN, mild pain, to moderate pain, S tarting on Shira 03/07/21 at 1003, One time prior to discharge. Maxim um acetaminophen dose from all sources = 75 mg/kg/day not to exceed 4 grams/day., Post-procedure EPINEPHrine (ADRENALIN) 1 Given 03/07/2021 9:06 AM 600 mLs Operative Site/Surgical mg, lidocaine 1 % 30 mg in CDT Site sodium chloride 0.9% (bag) 1,000 mL irrigation PRN, Starting on Shira 03/07/21 at 0906, Intra-procedure fentaNYL (PF) (SUBLIMAZE) injection 25-50 Given 03/07/2021 10:09 AM CDT 50 mcg mcg 25-50 mcg, Intravenous, EVERY 2 MIN PRN, other, acute pain, Starting on Shira 03/07/21 at 0940, MAX cumulative dose = 250 mcg. Use fentaNYL (SUBLIMAZE) initially, as a short acting agent for acute pain control. If insufficient, or a longer acting agent is needed, begin morphine or HYDROmorphone (DILAUDID) if ordered. For ordered IV doses 1-100 mcg give IV Push undiluted over a minimum of 3-5 minutes., PACU gabapentin (NEURONTIN) tablet 600 mg Given 03/07/2021 6:15 AM CDT 600 mg 600 mg, Oral, ONCE, On Shira 03/07/21 at 0600, For 1 dose, Pre-procedure HYDROmorphone (PF) (DILAUDID) injection 0.3-0.5 mg 0.3-0.5 mg, Intravenous, EVERY 5 MIN PRN , other, acute pain. ??May administer if Respiratory Rate is greater than 10, Starting on Shira at 0940, Max cumulative dose = 2 mg If fentaNYL (SUBL IMAZE) is also ordered, use HYDROmorphone (DILAUDID) if pain control insufficient with fentaNYL (SUBLIMAZE) or a longer acting agent is needed. For ordered IV doses 0.1-4 mg give IV Push undiluted. Administer each 2mg over 2-5 minutes., PACU lactated ringers infusion at 100 mL/hr, Intravenous, CONTINUOUS, C ontinue until IV catheter is weaned, PACU, Starting on Shira 03/07/21 at 1000, Until Shira 03/07/21 at 1444 naloxone (NARCAN) injection 0.2 mg 0.2 mg, Intravenous, EVERY 2 MIN PRN, op ioid reversal, Starting on Shira 03/07/21 at 0940, For 24 hours, Administer intraveno us route when available and notify provider when administered. For unintended sedati on or respiratory depression if all of the below criteria are met: ~ respiratory ra te LESS than or EQUAL to 8. ~SaO2 less than 92% and or/end-tidal CO2 is greater than 50. ~ the patient is receiving an opioid, has unintended sedations assessed as BERNICE S (-3), and is currently not on mechanical ventilation. RASS scale moderate (-3) is movement or eye opening to voice but no eye contact. Patient Monitoring Once the patient has demonstrated a response to the naloxone, continue to monitor respiratory rate, depth, oxygen saturation and end-tidal CO2 (if available) every 15 mi nutes x 2, then every 30 minutes x 2, then every 1 hour x 1 after each naloxone dose. Consider tr ansfer to ICU if patient respiratory parameters have not improved after 4 nalox one doses. For ordered IV doses 0.1-2mg give IVP. Give each 0.4mg over 15 seconds in emergency situations. For non-emergent situations further dilu te in 9mL of NS to facilitate titration of response., Post-procedure naloxone (NARCAN) injection 0.2 mg 0.2 mg, Intramuscular, EVERY 2 MIN PRN, opioid reversal, Starting on Shira 03/07/21 at 0940, For 24 hours, Administer intramuscular if an int ravenous route is not available and notify provider when administered. For u nintended sedation or respiratory depression if all of the below criteria ar e met: ~ respiratory rate LESS than or EQUAL to 8. ~SaO2 less than 92% and or/end-tidal CO2 is greater than 50. ~ the patient is receiving an opioid , has unintended sedations assessed as RASS (-3), and is currently not on mechanical ventilation. RASS scale moderate (-3) is movement or eye opening to voice but no eye contact. Patient Monitoring Once the patient has demonstrated a response to the naloxone, c ontinue to monitor respiratory rate, depth, oxygen saturati on and end-tidal CO2 (if available) every 15 minutes x 2, then every 30 minutes x 2, then every 1 hour x 1 after each naloxone dose. Consider transfer to ICU if patient respiratory parameters have not improved after 4 naloxone doses. For ord ered IV doses 0.1-2mg give IVP. Give each 0.4mg over 15 seconds in emergency situa tions. For non-emergent situations further dilute in 9mL of NS to facilitate titration of respons e., Post-procedure naloxone (NARCAN) injection 0.4 mg 0.4 mg, Intravenous, EVERY 2 MIN PRN, op ioid reversal, Starting on Shira 03/07/21 at 0940, For 24 hours, Administer intraveno us route when available and notify provider when administered. For unintended sedati on or respiratory depression if all of the below criteria are met: ~ respiratory rate LESS than o r EQUAL to 8. ~ SaO2 less than 92% and or/end-tidal CO2 is greater than 50. ~ th e patient is receiving an opioid, has unintended sedation assessed as RASS (-4) or (-5) and patient is currently not on mechanical ventilation. RASS scale (-4) is deep sedation with no response to voice but movement or eye op ening to physical stimulation. RASS scale (-5) is unarousable. Patient Monitoring Once the patie nt has demonstrated a response to the naloxone, continue to monitor respirat ory rate, depth, oxygen saturation and end-tidal CO2 (if available) every 15 m inutes x 2, then every 30 minutes x 2, then every 1 hour x 1 after each naloxone dose. Consider transfer to ICU if patient respiratory parameters bazzi ve not improved after 4 naloxone doses. For ordered IV doses 0.1-2mg give IVP. Give each 0.4mg ove r 15 seconds in emergency situations. For non-emergent situations further dilute in 9mL of NS to facilitate titration of response., Post-procedure naloxone (NARCAN) injection 0.4 mg 0.4 mg, Intramuscular, EVERY 2 MIN PRN, opioid reversal, Starting on Shira 03/07/21 at 0940, For 24 hours, Administer intramuscular if an int ravenous route is not available and notify provider when administered. For u nintended sedation or respiratory depression if all of the below criteria ar e met: ~ respiratory rate LESS than or EQUAL to 8. ~ SaO2 less jacki n 92% and or/end-tidal CO2 is greater than 50. ~ the patient is receiving an opioid , has unintended sedation assessed as RASS (-4) or (-5) and patient is currently not on mechanica l ventilation. RASS scale (-4) is deep sedation with no response to voice but mo vement or eye opening to physical stimulation. RASS scale (-5) is unarousable. Patient Monitoring Once the patient has demonstrated a response to the naloxone, c ontinue to monitor respiratory rate, depth, oxygen saturati on and end-tidal CO2 (if available) every 15 minutes x 2, then every 30 minutes x 2, then every 1 hour x 1 after each naloxone dose. Consider transfer to ICU if patient respiratory parameters have not improved after 4 naloxone doses. For ord ered IV doses 0.1-2mg give IVP. Give each 0.4mg over 15 seconds in emergency situa tions. For non-emergent situations further dilute in 9mL of NS to facilitate titration of respons e., Post-procedure ondansetron (ZOFRAN) injection 4 mg Given 03/07/2021 12:20 PM CDT 4 mg 4 mg, Intravenous, EVERY 30 MIN PRN, nausea, Administer over 2-5 Minutes, Starting on Shira 03/07/21 at 0940, For 2 doses, MAX total dose = 8 mg, including OR dosing. If not resolved in 15 minutes, then go to step 2 [prochlorperazine (COMPAZINE), if ordered]. Irritant. For ordered IV doses 0.1-4 mg, give IV Push undiluted over 2-5 minutes., PACU ondansetron (ZOFRAN-ODT) ODT tab 4 mg 4 mg, Oral, EVERY 30 MIN PRN, nausea, St arting on Shira 03/07/21 at 0940, For 2 doses, MAX total dose = 8 mg, including OR dosi ng. If not resolved in 15 minutes, then go to step 2 [prochlorperazine (COMPAZINE), if ordered]. With dry hands, peel back foil backing and gently remove tablet. Do not push ora l disintegrating tablet through foil backing. Administer immediately on tongue and oral disintegrating tablet dissolves in seconds, then swallo w with saliva. Liquid not required., PACU traMADol (ULTRAM) tablet 50 mg Given 03/07/2021 11:18 AM CDT 50 mg 50 mg, Oral, EVERY 6 HOURS PRN, moderate pain, Starting on Shiar 03/07/21 at 0949 documented in this encounter Active and Recently Administered Medications Times are shown in CDT. Scheduled Medication Order 03/05/2021 03/06/2021 03/07/2021 acetaminophen (TYLENOL) tablet 1,000 mg (COMPLETED) 0615 (Given - Provider: Norah Frost RN) 1,000 mg, Oral, ONCE, Shira 03/07/21 at 060 0, For 1 dose, Maximum acetaminophen dose from all sources = 75 mg/kg/day not to exceed 4 gram, Pre-procedure ceFAZolin (ANCEF) intermittent infusion 2 g in 100 mL dextrose PRE-MIX (COMPLETED) 0736 (Given - Provid er: Hakeem Persaud) Routine, 2 g, Intravenous, PRE-OP/PRE-ND OCEDURE, Starting Shira 03/07/21 at 0533, For 1 dose, Give first dose within 1 hour PRIOR to incision. If patient weight is greater than or equal to 120 kg increase dose to 3 g., Indications: Perioperative Pharmacoprophylaxis, Pr e-procedure gabapentin (NEURONTIN) tablet 600 mg (COMPLETED) 0615 (Given - Provider: Norah Frost, DEMETRICE) 600 mg, Oral, ONCE, Shira 03/07/21 at 0600, For 1 dose, Pre-procedu re Continuous Medication Order 03/05/2021 03/06/2021 03/07/2021 lactated ringers infusion 1000 ( Canceled Entry - Provider: Orders Generic Provider - Comment: Automatically canceled at discontinue of medication order) at 100 mL/hr, Intravenous, CONTINUOUS, C ontinue until IV catheter is weaned, PACU, Starting Shira 03/07/21 at 1000, Until Shira 03/07/21 at 1444 PRN Medication Order 03/05/2021 03/06/2021 03/07/2021 acetaminophen (TYLENOL) tablet 650 mg 650 mg, Oral, ONCE PRN, mild pain, to mo derate pain, Starting Shira 03/07/21 at 1003, One time prior to discharge. Maximum acetaminophen dose from all sources = 75 mg/kg/day not to exceed 4 grams/day., Post-procedure EPINEPHrine (ADRENALIN) 1 mg, lidocaine 1 % 30 mg in sodium chloride 0.9% (bag) 1,000 mL irrigation (CANCELED) 0906 (Giv en - Provider: Salma Carmona MD) PRN, Starting Shira 03/07/21 at 0906, Intra-procedure fentaNYL (PF) (SUBLIMAZE) injection 25-50 mcg 1009 (Given - Provider: Layla Bates RN) 25-50 mcg, Intravenous, EVERY 2 MIN PRN, other, acute pain, Starting Shira 03/07/21 at 0940, MAX cumulative dose = 250 mcg. Use fentaNYL (SUBLIMAZE) initially, as a short acting agent for acute pain contro l. If insufficient, or a longer acting a gent is needed, begin morphine or HYDROmorphone (DILAUDID) if ordered. For ordered IV doses 1-100 mcg give IV Push undiluted over a minimum of 3-5 minutes., PACU HYDROmorphone (PF) (DILAUDID) injection 0.3-0.5 mg 0.3-0.5 mg, Intravenous, EVERY 5 MIN PRN , other, acute pain. ??May administer if Respiratory Rate is greater than 10, Starting Shira 03/07/21 at 0940, Max cumulative dose = 2 mg If fentaNYL (SUBLIMAZE) is also ordered, use HYDROmorphone (DILAUDI D) if pain control insufficient with fentaNYL (SUBLIMAZE) or a longer acting agent is needed. For ordered IV doses 0.1-4 mg give IV Push undiluted. Administer each 2mg over 2-5 minutes., PACU naloxone (NARCAN) injection 0.2 mg 0.2 mg, Intravenous, EVERY 2 MIN PRN, op ioid reversal, Starting Shira 03/07/21 at 0940, For 24 hours, Administer intravenous route when available and notify provider when administered. For unintended sedat ion or respiratory depression if all of the below criteria are met: ~ respiratory rate LESS than or EQUAL to 8. ~SaO2 less than 92% and or/end-tidal CO2 is greater than 50. ~ the patient is receiving an opioid, has unintended sedations assess ed as RASS (-3), and is currently not on mechanical ventilation. RASS scale moderate (-3) is movement or eye opening to voice but no eye contact. Patient Monitori ng Once the patient has demonstrated a r esponse to the naloxone, continue to monitor respiratory rate, depth, oxygen saturation and end-tidal CO2 (if available) every 15 minutes x 2, then every 30 minut es x 2, then every 1 hour x 1 after each naloxone dose. Consider transfer to ICU if patient respiratory parameters have not improved after 4 naloxone doses. For ordered IV doses 0.1-2mg give IVP. Give e ach 0.4mg over 15 seconds in emergency s ituations. For non-emergent situations further dilute in 9mL of NS to facilitate titration of response., Post-procedure naloxone (NARCAN) injection 0.2 mg 0.2 mg, Intramuscular, EVERY 2 MIN PRN, opioid reversal, Starting Shira 03/07/21 at 0940, For 24 hours, Administer intramuscular if an intravenous route is not available and notify provider when administer ed. For unintended sedation or respirato ry depression if all of the below criteria are met: ~ respiratory rate LESS than or EQUAL to 8. ~SaO2 less than 92% and or/end-tidal CO2 is greater than 50. ~ the patient is receiving an opioid, has uni ntended sedations assessed as RASS (-3), and is currently not on mechanical ventilation. RASS scale moderate (-3) is movement or eye opening to voice but no eye c ontact. Patient Monitoring Once the sabine ent has demonstrated a response to the naloxone, continue to monitor respiratory rate, depth, oxygen saturation and end-tidal CO2 (if available) every 15 minutes x 2, then every 30 minutes x 2, then mahad ry 1 hour x 1 after each naloxone dose. Consider transfer to ICU if patient respiratory parameters have not improved after 4 naloxone doses. For ordered IV doses 0.1-2mg give IVP. Give each 0.4mg over 1 5 seconds in emergency situations. For non-emergent situations further dilute in 9mL of NS to facilitate titration of response., Post-procedure naloxone (NARCAN) injection 0.4 mg 0.4 mg, Intravenous, EVERY 2 MIN PRN, op ioid reversal, Starting Shira 03/07/21 at 0940, For 24 hours, Administer intravenous route when available and notify provider when administered. For unintended sedat ion or respiratory depression if all of the below criteria are met: ~ respiratory rate LESS than or EQUAL to 8. ~ SaO2 less than 92% and or/end-tidal CO2 is greater than 50. ~ the patient is receiving a n opioid, has unintended sedation assess ed as RASS (-4) or (-5) and patient is currently not on mechanical ventilation. RASS scale (-4) is deep sedation with no response to voice but movement or eye ope winston to physical stimulation. RASS scale (-5) is unarousable. Patient Monitoring Once the patient has demonstrated a response to the naloxone, continue to monitor respiratory rate, depth, oxygen saturat ion and end-tidal CO2 (if available) mahad ry 15 minutes x 2, then every 30 minutes x 2, then every 1 hour x 1 after each naloxone dose. Consider transfer to ICU if patient respiratory parameters have not improved after 4 naloxone doses. For ord ered IV doses 0.1-2mg give IVP. Give each 0.4mg over 15 seconds in emergency situations. For non-emergent situations further dilute in 9mL of NS to facilitate titration of response., Post-procedure naloxone (NARCAN) injection 0.4 mg 0.4 mg, Intramuscular, EVERY 2 MIN PRN, opioid reversal, Starting Shira 03/07/21 at 0940, For 24 hours, Administer intramuscular if an intravenous route is not available and notify provider when administer ed. For unintended sedation or respirato ry depression if all of the below criteria are met: ~ respiratory rate LESS than or EQUAL to 8. ~ SaO2 less than 92% and or/end-tidal CO2 is greater than 50. ~ th e patient is receiving an opioid, has un intended sedation assessed as RASS (-4) or (-5) and patient is currently not on mechanical ventilation. RASS scale (-4) is deep sedation with no response to voice but movement or eye opening to physical stimulation. RASS scale (-5) is unarousable. Patient Monitoring Once the patient has demonstrated a response to the naloxone, continue to monitor respiratory rat e, depth, oxygen saturation and end-tida l CO2 (if available) every 15 minutes x 2, then every 30 minutes x 2, then every 1 hour x 1 after each naloxone dose. Consider transfer to ICU if patient respirat ory parameters have not improved after 4 naloxone doses. For ordered IV doses 0.1-2mg give IVP. Give each 0.4mg over 15 seconds in emergency situations. For non-emergent situations further dilute in 9mL of NS to facilitate titration of response., Post-procedure ondansetron (ZOFRAN) injection 4 mg(Linked Group 1) 1220 (Given - Provider: Nicki Chan RN) 4 mg, Intravenous, EVERY 30 MIN PRN, kristen sea, Administer over 2-5 Minutes, Starting Shira 03/07/21 at 0940, For 2 doses, MAX total dose = 8 mg, including OR dosing. If not resolved in 15 minutes, then go to step 2 [prochlorperazine (COMPAZINE), i f ordered]. Irritant. For ordered IV doses 0.1-4 mg, give IV Push undiluted over 2-5 minutes., PACU ondansetron (ZOFRAN-ODT) ODT tab 4 mg(Linked Group 1) 1220 (See Alternative - Provider: Nicki Chan, RN) 4 mg, Oral, EVERY 30 MIN PRN, nausea, St arting Shira 03/07/21 at 0940, For 2 doses, MAX total dose = 8 mg, including OR dosing. If not resolved in 15 minutes, then go to step 2 [prochlorperazine (COMPAZINE ), if ordered]. With dry hands, peel joey k foil backing and gently remove tablet. Do not push oral disintegrating tablet through foil backing. Administer immediately on tongue and oral disintegrating tab let dissolves in seconds, then swallow with saliva. Liquid n ot required., PACU traMADol (ULTRAM) tablet 50 mg 1 118 (Given - Provider: Layla Bates, RN) 50 mg, Oral, EVERY 6 HOURS PRN, moderate pain, Starting Shira 03/07 at 0949 Linked Groups Order Group 1: ondansetron (ZOFRAN-ODT) ODT tab 4 mgJump to med 4 mg, Oral, EVERY 30 MIN PRN, nausea, St arting Shira 03/07/21 at 0940, For 2 doses
MAX total dose = 8 mg, including OR dosing. If not resolved in 15 minutes, then go to step 2 [prochlorperazine (C OMPAZINE), if ordered]. With dry bazzi nds, peel back foil backing and gently remove tablet. Do not push oral disintegrating tablet through foil backing. Administer immediately on tongue and oral d isintegrating tablet dissolves in second s, then swallow with saliva. Liquid not required.
PACU Or ondansetron (ZOFRAN) injection 4 mgJump to med 4 mg, Intravenous, EVERY 30 MIN PRN, kristen sea, Administer over 2-5 Minutes, Starting Shira 03/07/21 at 0940, For 2 doses
MAX total dose = 8 mg, including OR dosing. If not resolved in 15 minutes, th en go to step 2 [prochlorperazine (BHUMI ZINE), if ordered]. Irritant. For ordered IV doses 0.1-4 mg, give IV Push undiluted over 2-5 minutes.
PACU documented in this encounter Care Teams Real Estate Agent Relationship Specialty Start Date End Date Sushma Jamison MD PCP - General Family Medicine 02/22/21 [address] [place] [address] documented as of this encounter
--- OUTSIDE RECORDS SUMMARY | 2022-08-04 08:45 | XMS_ITS | Encounter Summary ---
:1965 Author Organization [place] Address [facility] [place] [address] Care Team Providers Name Role Phone Cedric Friedman MD Primary Care Provider Encounter Details Date Type Department Care Team Description 06/17/2012 Medical Correspondence [facility] Frw, None Summary : [facility] Medical Records [address] [place] [id number] Social History Tobacco Use Types Packs/Day Years [...] on filedocumented in this encounter Care Teams Acid Crane Operator Relationship Specialty Start Date End Date Cedric Friedman MD PCP - General 05/30/09 02/21/21 [facility] [address] [facility] [place] [address] documented as of this encounter
--- OUTSIDE RECORDS SUMMARY | 2022-08-04 08:45 | XMS_ITS | Encounter Summary ---
:1965 Author Organization [place] Address [address] [place] [address]. [place] [address] Care Team Providers Name Role Phone Sushma Jamison MD Primary Care Provider Unavailable Encounter Details Date Type Department Care Team Description 03/07/2021 Travel Social History Tobacco Use Types Packs/Day Years [...] / COVID-19? documented as of this encounter Plan of Treatment Not on filedocumented as of this encounter Visit Diagnoses Not on filedocumented in this encounter Care Teams Combo Welder Relationship Specialty Start Date End Date Sushma Jamison MD PCP - General Family Medicine 02/22/[address] [place] [address] documented as of this encounter
--- OUTSIDE RECORDS SUMMARY | 2022-08-04 08:45 | XMS_ITS | Encounter Summary ---
:1965 Author Organization [facility] Address [address] [facility] [place] [address] Care Team Providers Name Role Phone Cedric Friedman MD Primary Care Provider Reason for Visit Reason Onset Date Comments Patient/info Update 04/19/2012 Encounter Details Date Type Department Care Team Description 04/19/2012 Telephone [facility] Zaida Martin, Patient/info Update in [facility] [place] [address] [place] [address] [place] [address] Social History Tobacco Use Types Packs/Day Years [...] this encounter Miscellaneous Notes Telephone Encounter - Cedric Friedman MD - 04/19/2012 5:00 PM CDT I called patient and she will increase OMEPRAZOLE to 40 mg daily for 1 more week. Telephone Encounter - Zaida Martin RN - 04/19/2012 4:27 PM CDT Situation/What is the patient???s concern/need: Sil updating PCP after starting Omeprazole for GERD/chronic cough Clinical Background/Recent Intervention: Last visit: BP Readings from Last 1 Encounters: 04/14/12 114/80 Omeprazole 20mg started. She reports that the first two days, she saw major improvement in her sxs, but then after that, theyreturned, the coughing, throat clearing. She is using her inhaler as directed. Recommendation/Patient Request: Wondering if she needs a stronger dose of the medication? [place] Best number(s) to reach patient: [phone] documented in this encounter Plan of Treatment Not on filedocumented as of this encounter Visit Diagnoses Not on filedocumented in this encounter Care Teams Barge Hand Relationship Specialty Start Date End Date Cedric Friedman MD PCP - General 05/30/09 02/21/21 [facility] [address] [place] [address] [facility] [address] [place] [address] documented as of this encounter
--- OUTSIDE RECORDS SUMMARY | 2022-08-04 08:45 | XMS_ITS | Encounter Summary ---
:1965 Author Organization [place] Address [address] [facility] [place] [address] Care Team Providers Name Role Phone Sushma [...] (H) [C50.412] Status post bilateral mastectomy [Z90.13] [address], [address] Procedures HC REMOVE W/O INSERT PROSTH TISSUE VENDING SERVICE TECHNICIAN HC ENLARGE BREAST WITH IMPLANT HC INSERT BREAST PROS IMMED AFTER EXCIS HC DELAY BREAST PROS AFTER BREAST SURG HC BREAST RECONSTRUC W TISS EXPANDR LL2 ZZPR BREAST RECONSTRUCTION W /LATISSIMUS DORSI FLAP ZZPR BREAST RECONSTRUCTION W/FREE FLAP ZZPR BREAST RECONSTRUCTION SINGLE PEDICLED TRAM FLAP ZZPR BREAST RECONSTRUCTION 1PEDICLED TRAM FLAP ANAST ZZPR BREAST RECONSTRUCTION BIPEDICLED TRAM FLAP [place]ARIA [id number] HC GRAFTING OF AUTOLOGOUS SO FT TISS BY DIRECT EXC HC GRAFTING OF AUTOLOGOUS FAT BY LIPO 50 CC OR LESS REMOVAL BILATERAL TISSUE EXPANDERS EXCHANGE TISSUE EXPANDERS WITH BILATERAL SILICONE BREAST IMPLANTS BILATERAL BREAST FAT GRAFTING FROM ABDOMEN Phone: Referral ID Status Reason Start Date Expiration Date Visits Requ ested Visits Authorized [id number] 1 1 Encounter Details Date Type Department Care Team Description 03/07/2021 [facility] Salma Carmona, Nataliiau s post breast Encounter [place] Phase II MD reconstruction [address] [facility] (Primary Dx) KWABENA FARIA [address] [facility] [phone] [place] [address] [address] [id number] Social History Tobacco Use Types Packs/Day Years [...] school ?? Do Not go to christian, teacher early childhood development centers, shopping, or other public places. ?? [...] at home, please visit the CDCwebsite at https://www.cdc.gov/coronavirus/2019-ncov/about/auswe-hilc-fsej.html For more options for care at [facility], please visit our website at [email or web address] Today you were given 1000 mg of [...] are no significant changes Source Note - Scan, Provider - 03/04/2021 9:48 AM CDT documented [...] breast absence post-mastectomy and immediate prepectoral tissue clip riveter breast reconstruction with AlloDerm. 3. Breast implant status. POSTOPERATIVE DIAGNOSES: 1. Personal history of breast cancer. 2. Bilateral acquired breast absence post-mastectomy and immediate prepectoral tissue clip riveter breast reconstruction with AlloDerm. 3. Breast implant status. PROCEDURES: 1. Bilateral removal of tissue expanders and exchange for silicone breast implants. 2. Bilateral breast fat grafting, donor site abdomen (total grafted right breast 60 mL, left breast 10 mL). DRAINAGE TYPE: None. SURGEON: Salma Carmona MD KILN PLACER: ANAHI Prado PA-C, was present and scrubbed for the entire procedure and assisted with dissection, retraction and closure. There were no other qualified trainees or other assistants available and the presence of Kika Harris PA-C, was necessary due to inability to retract and dissect without an health care assistant. INDICATIONS: The patient is a 55-year-old female with a personal history of breast cancer. She underwent bilateral skin-sparing mastectomies and immediate prepectoral tissue clip riveter breast reconstruction with AlloDerm. She is coming [...] tissues and incise the AlloDerm. The tissue clip riveter was removed. It was found to be [...] was then incised with electrocautery. The tissue clip riveter was removed and it was found to [...] abdomen. The fat was collected in the Online Pras[employer] system and then processed. After processing, we [...] style SCF-695 with a serial number of [id number]. On the right side, I inserted a Natrelle Inspira cohesive breast implant, style SCF-605 with a serial number of [id number]. On both sides, the Alloderm was then [...] the entire case. Salma Carmona MD MT: PAKMT Name: JOCE POWER MRN: [id number] Account: [id number] : 1965 Procedure Date: 03/07/2021 Document: [id number] documented in this encounter Plan of Treatment [...] 2.5 HRS DRS TIME REQUESTED REMOVAL, TISSUE VENDING SERVICE TECHNICIAN, 03/07/2021 7:27 AM CDT Malig nant neoplasm of BREAST upper-outer quadrant of left [...] Glucose by meter (03/07/2021 10:04 AM CDT) P athologist Signature Glucose 192 (H) 70 - 99 03/07/2021 POINT OF CARE mg/dL 10:10 AM CDT TEST, GLUCOSE Specimen Anatomical Collection Method Collection Time Receive d Time (Source) Location / / Volume Laterality 03/07/2021 10:04 03/07/2021 AM CDT 10:10 AM CDT Salma Carmona MD LAB - BEAKER POCT Performing Organization Address City/[facility]/ZIP Code Phon e Number FV POINT OF CARE TEST, GLUCOSE POINT OF CARE TEST, GLUCOSE (ABNORMAL) Glucose by meter (03/07/2021 6:20 AM CDT) P athologist Signature Glucose 186 (H) 70 - 99 03/07/2021 POINT OF CARE mg/dL 6:27 AM CDT TEST, GLUCOSE Specimen Anatomical Collection Method Collection Time Receive d Time (Source) Location / / Volume Laterality 03/07/2021 6:20 AM 6:27 CDT AM CDT Salma PURVIS - BEAKER POCT Performing Organization Address City/[facility]/ZIP [facility] Phon e Number FV POINT OF CARE TEST, GLUCOSE POINT OF CARE TEST, GLUCOSE HCG qualitative urine (03/07/2021 5:43 AM CDT) athologist Signature HCG Qual Urine Negative NEG^Negati 03/07/2021 [facility] 5:50 AM CDT [facility] Comment: This test is for screening purposes. ??R esults should be interpreted along with the clinical picture. ??Confirmation te sting is available if warranted by ordering [id number], HCG Quantitative Pregna ncy. Specimen Anatomical Collection Method Collection Time Receive d Time (Source) Location / / Volume Laterality Urine URINE SPECIMEN / 03/07/2021 5:43 AM 03/07 5:45 Unknown CDT AM CDT Radu Vazquez MD LAB - URINE ORDERABLES Performing Organization Address City/[facility]/ZIP Code Phon e Number [facility] [address] [address] [phone] [facility] [address] [address], [facility] [phone] documented in this encounter Visit Diagnoses Diagnosis Status post breast reconstruction - Prim dora Breast replaced by other means documented in this encounter Administered Medications Inactive [...] mg/kg/day not to exceed 4 grams/day., Post-procedure fentaNYL (PF) (SUBLIMAZE) injection 25-50 Given 03/07/2021 [...] 6 HOURS PRN, moderate pain, Starting on Shira 03/07/21 at 0949 documented in this encounter Active and Recently Administered Medications Times are shown in CDT. Scheduled Medication Order 03/05/2021 03/06/2021 03/07/2021 acetaminophen (TYLENOL) tablet 1,000 mg (COMPLETED) 614 (Given - Provider: Norah Frost RN) 1,000 [...] e-procedure gabapentin (NEURONTIN) tablet 600 mg (COMPLETED) 614 (Given - Provider: Norah Frost RN) 600 mg, Oral, ONCE, Shira 03/07/21 at [...] Group 1) 1220 (Given - Provider: Nicki Chan, RN) 4 mg, Intravenous, EVERY 30 MIN [...] 1) 1220 (See Alternative - Provider: Nicki Chan RN) 4 mg, Oral, EVERY 30 MIN [...] mg 1 118 (Given - Provider: Layla Bates RN) 50 mg, Oral, EVERY 6 HOURS [...]
PACU documented in this encounter Care Teams Signal Engineer Relationship Specialty Start Date End Date Sushma Jamison MD PCP - General Family Medicine 02/22/21 [address] [place] [address] documented as of this encounter
--- OUTSIDE RECORDS SUMMARY | 2022-08-04 08:45 | XMS_ITS | Encounter Summary ---
:1965 Author Organization [place] Address [address] [facility] [place] [address] Care Team Providers Name Role Phone Cedric Friedman MD Primary Care Provider Encounter Details Date Type Department Care Team Description 02/21/2021 Orders Only [facility] Rahul Carmona MD Encounter for [facility] screening for other [address] [facility] [address] [facility] [place] [address] [facility] [phone] [place] [address] (Wo rk) Social History Tobacco Use Types Packs/Day Years [...] Not on filedocumented as of this encounter Results Asymptomatic COVID-19 Virus (Coronavirus) by PCR (03/04/2021 2:00 PM CDT) Component Value Ref Test Analysis Performed At [facility] Method Time Signature COVID-19 Nasopharyngeal 03/04/2021 [place] Virus PCR to 2:18 PM CDT [facility] Source COVID-19 Test received-See 03/04/2021 INFECTIOUS Virus PCR to reflex to IDDL 6:12 PM CDT DISEASES [facility] [place] - test SARS CoV2 DIAGNOSTIC Result (COVID-19) Virus LABORATORY, RT-PCR [facility] Specimen (Source) Anatomical Collection Method Collection Time Re ceived Time Location / / Volume Laterality Specimen from 03/04/2021 2:00 03/04/2021 nasopharyngeal PM CDT 2:18 PM CDT structure (specimen) Salma Carmona MD LAB - MICRO GENERAL ORDERABL ES Performing Organization Address City/State/ZIP Code Phon e Number INFECTIOUS DISEASES DIAGNOSTIC [address] [facility] [address] LABORATORY, [address] [phone] documented in this encounter Visit Diagnoses Diagnosis Encounter for screening for other viral diseases documented in this encounter Care Teams Freelance [address] Stenographer Relationship Specialty Start Date End Date Cedric Friedman MD PCP - General 05/30/09 02/21/21 [facility] [address] [place] [facility] [address] [place] [address] documented as of this encounter
--- OUTSIDE RECORDS SUMMARY | 2022-08-04 08:45 | XMS_ITS | Encounter Summary ---
:1965 Author Organization [place] Address [address] [facility] [place] [address] Care Team Providers Name Role Phone Sushma Jamison MD Primary Care Provider Unavailable Reason for Visit Reason Onset Date Comments Covid 19 Testing 03/04/2021 Encounter Details Date Type Department Care Team Description 03/04/2021 Orders Only [facility] Rahul Carmona MD Encounter for Clinic [facility] ON COLOGY screening for other Laboratory [address] [place] [address] [id number] [place] [phone] Social History Tobacco Use Types Packs/Day Years [...] been in contact with No / Unsure 03/04/2021 1:55 PM CDT someone who was confirmed or suspected to have Coronavirus / COVID-19? documented as of this encounter Progress Notes Nicole Pardo - 03/04/2021 2:00 PM CDT COVID-19 PCR test completed. Patient handout For Patients Who Have Been Tested for Covid-19 (Coronavirus) was given to the patient, which includes test result notification process. documented in this encounter Plan of Treatment Not on filedocumented as of this encounter Procedures Procedure Name Priority Date/Time Associated Diagnosis Comme nts SARS-COV-2 Routine 03/04/2021 2:00 PM Encounter for Results for this (COVID-19) VIRUS CDT screening for other proc edure are in RT-PCR viral diseases the results section. COVID-19 VIRUS Routine 03/04/2021 2:00 PM Encounter for Result s for this (CORONAVIRUS) BY CDT screening for other proc edure are in PCR viral diseases the results section. documented in this encounter Results SARS-CoV-2 COVID-19 Virus (Coronavirus) by PCR (03/04/2021 2:00 PM CDT) [facility] Method Time Signature SARS-CoV-2 Nasopharyngeal 03/05/2021 INFECTIOUS Virus 12:06 PM DISEASES Specimen CDT DIAGNOSTIC Source LABORATORY, [facility] SARS-CoV-2 NEGATIVE 03/05/2021 INFECTIOUS PCR Result 12:06 PM DISEASES CDT DIAGNOSTIC LABORATORY, [facility] Comment: SARS-CoV2 (COVID-19) RNA not de tected, presumed negative. SARS-CoV-2 PCR Testing was 03/05/2021 12:06 PM INF ECTIOUS DISEASES Comment performed using the CDT DIAGNOSTIC sheron SARS-CoV-2 LABORATORY, [facility] assay on the sheron 6800 System.2 Comment: This test should be ordered for the dete ction of SARS-CoV-2 in individuals who meet SARS-CoV-2 clinical and/or epidemi ological criteria. Test performance is unknown in asymptomatic patients. This test is for in vitro diagnostic use under the FDA EUA for laboratories certified under CLIA to perform high and /or moderate complexity testing. This test has not been FDA cleared or approve d. A negative result does not rule out the presence of PCR inhibitors in the specimen or target RNA in concentration below the limit of detection for the assay. The possibility of a false negati ve should be considered if the patient's recent exposure or clinical pr esentation suggests COVID-19. This test was validated by the [facility] Infectious Diseases Diagnostic Laboratory. This laboratory i s certified under the Clinical Laboratory Improvement Amendments of 198 8 (CLIA-88) as qualified to perform high and/or moderate complexity laborato ry testing. Specimen (Source) Anatomical Collection Method Collection Time Re ceived Time Location / / Volume Laterality Specimen from 03/04/2021 2:00 03/04/2021 nasopharyngeal PM CDT 2:18 PM CDT structure (specimen) Salma Carmona MD LAB - MICRO GENERAL ORDERABL ES Performing Organization Address City/[facility]/ZIP Code Phon e Number INFECTIOUS DISEASES DIAGNOSTIC [address] [facility] [place] [address] LABORATORY, [facility] Asymptomatic COVID-19 Virus (Coronavirus) by PCR (03/04/2021 2:00 PM CDT) Component Value Ref Test Analysis Performed At [facility] Range Method Time Signature COVID-19 Nasopharyngeal 03/04/2021 [place] Virus PCR to 2:18 PM CDT CLINICS [facility] Source COVID-19 Test received-See 03/04/2021 INFECTIOUS Virus PCR to reflex to IDDL 6:12 PM CDT DISEASES [facility] [place] - test SARS CoV2 DIAGNOSTIC Result (COVID-19) Virus LABORATORY, RT-PCR [facility] Specimen (Source) Anatomical Collection Method Collection Time Re ceived Time Location / / Volume Laterality Specimen from 03/04/2021 2:00 03/04/2021 nasopharyngeal PM CDT 2:18 PM CDT structure (specimen) Salma Carmona MD LAB - MICRO GENERAL ORDERABL ES Performing Organization Address City/[facility]/ZIP Code Phon e Number INFECTIOUS DISEASES DIAGNOSTIC [address] [facility] [place] [address] LABORATORY, [facility] [address] [place], [place] [phone] documented in this encounter Visit Diagnoses Diagnosis Encounter for screening for other viral diseases documented in this encounter Care Teams Cage Loader Relationship Specialty Start Date End Date Sushma Jamison MD PCP - General Family Medicine 02/22/21 [address] [place] [address] documented as of this encounter
--- OUTSIDE RECORDS SUMMARY | 2022-08-04 08:45 | XMS_ITS | Encounter Summary ---
:1965 Author Organization [place] Address [facility] [place] [address] Care Team Providers Name Role Phone Cedric Friedman MD Primary Care Provider Reason for Visit Reason Onset Date Comments Refill Request 02/21/2013 simvastatin Encounter Details Date Type Department Care Team Description 02/21/2013 Refill [facility] Cedric Friedman MD Refill Request System in [facility] (simvastatin) Family Practice [address] [place] [address] [place] [address] [phone] (Wo rk) Social History Tobacco Use Types [...] Telephone Encounter - Zaida Martin RN - 02/21/2013 4:34 PM CDT Last visit: BP Readings from Last 1 Encounters: 04/14/12 114/80 Your most recent blood tests on record are listed for your review below. A1C 7.6 02/11/2012] (goal less than 7.0% (best if less than 6.5%)) CHOL 174 10/23/2011] (goal less than 200) TRIG 239 10/23/2011] (goal less than 149) HDL 49 10/23/2011] (goal greater than 45 for men and greater than 50 for women) LDL 77 10/23/2011] (goal less than 100) MICROALBUMIN 13.61 09/12/2011] normal 0 - 25 CAD/HTN and/or CHF labs: CR 0.80 02/11/2012 POTASSIUM 4.9 02/11/2012 TSH 2.89 09/12/2011 Pt contacted, she no longer works in [employer] or goes to this clinic, but to the [facility]. She will call pharmacy and have this RX transferred to her current PCP. rx removed from this encounter. Telephone Encounter - Lauren Klein - 02/21/2013 9:01 AM CDT Received refill request from patient/pharmacy medication pended for review. documented in this encounter Plan of Treatment Not on filedocumented as of this encounter Visit Diagnoses Diagnosis Mixed hyperlipidemia - Primary documented in this encounter Care Teams Bedspread Folder Relationship Specialty Start Date End Date Cedric Friedman MD PCP - General 05/30/09 02/21/[address] [place] [address] documented as of this encounter
--- OUTSIDE RECORDS SUMMARY | 2022-08-04 08:45 | XMS_ITS | Encounter Summary ---
:1965 Author Organization [place] Address [address] [place] [address]. [place] [address] Care Team Providers Name Role Phone Sushma Jamison MD Primary Care Provider Unavailable Encounter Details Date Type Department Care Team Description 03/04/2021 Travel Social History Tobacco Use Types Packs/Day [...] on filedocumented in this encounter Care Teams Integration Engineer Relationship Specialty Start Date End Date Sushma Jamison MD PCP - General Family Medicine 02/22/[address] [place] [address] documented as of this encounter
--- OUTSIDE RECORDS SUMMARY | 2022-08-04 08:45 | XMS_ITS | Encounter Summary ---
:1965 Author Organization [place] Address [facility] [place] [address] Care Team Providers Name Role Phone Cedric Friedman MD Primary Care Provider Reason for Visit Reason Comments Cough dry hacky cough,occasionally productive ,disrupting sleep Encounter Details Date Type Department Care Team Description 04/14/2012 Office Visit [facility] Cedric Friedman, GERD (gastroesophageal reflux disease) (Primary Dx); System in [place] MD Post-nasal drip; Family Practice [facility] [place] [address] [place] [address] [place] [address] [phone] [place] [phone] Social History Tobacco Use Types Packs/Day Years [...] on file documented as of this encounter Last Filed Vital Signs Vital Sign Reading Time Taken Comments Blood Pressure 114/80 04/14/2012 1:45 PM CDT Pulse 72 04/14/2012 1:45 PM CDT Temperature 36.3 ??C (97.3 ??F) 04/14/2012 1:45 PM CDT Respiratory Rate - - Oxygen Saturation - - Inhaled Oxygen Concentration - - Weight 73.5 kg (162 lb) 04/14/2012 1:45 PM CDT Height - - Body Mass Index 26.15 02/12/2012 2:54 PM CDT documented in this encounter Progress Notes Cedric Friedman MD - 04/14/2012 2:15 PM CDT Chief Complaint: Chief Complaint Patient presents with ??? Cough dry hacky cough,occasionally productive ,disrupting sleep The patient complains of a dry cough of moderate severity for 2 months. The patient describes the symptoms as dry and no hemoptysis. The patient describes modifying or exacerbating factors as: none. The patient has attempted the following treatments: ZITHROMAX, Robitussin-AC without relief. The patient denies any other aggravating or alleviating factors or associated symptoms. Her chest x-ray was normal. No fevers. She has postnasal drainage. Patient Active Problem List Diagnoses Code ??? Diabetes Mellitus, Type 2 250.00BC ??? Hypothyroidism 244.9Y ??? Mixed Hyperlipidemia 272.2 Current outpatient prescriptions Medication Sig ??? citalopram (CELEXA) 20 MG tablet Take 1 tablet by mouth daily. ??? cetirizine (ZYRTEC) 10 MG tablet Take 1 tablet by mouth daily. ??? LANTUS SOLOSTAR 100 UNIT/ML injection Inject 18 Units Subcutaneous 2 times daily. ??? levothyroxine (SYNTHROID, LEVOTHROID) 75 MCG tablet Take 1 tablet by mouth daily. ??? simvastatin (ZOCOR) 40 MG tablet Take 1 tablet by mouth At Bedtime. ??? metFORMIN (GLUCOPHAGE-XR) 500 MG 24 hr tablet Take 1 tablet by mouth daily (with dinner). ??? ORDER FOR DME Glucose monitoring test strips and lancets. ONE TOUCH TEST STRIPS Test 2 times daily. . GRUPO: 99 Insulin dependent: NO Dx Code: 250.00BC Diabetes mellitus, type 2 ??? ASPIRIN 81 MG OR TABS ONE DAILY ??? ALPRAZolam (XANAX) 0.25 MG tablet Take 1 tablet by mouth 3 times daily as needed for anxiety. ??? albuterol (PROVENTIL HFA: VENTOLIN HFA) 108 (90 BASE) MCG/ACT inhaler Inhale 2 puffs into the lungs every 6 hours. Allergies Allergen Reactions ??? Oxycodone Itching and Difficulty breathing Percocet ??? Phenergan (Promethazine Hcl) Nausea Convulsions; shaking ??? Metformin Diarrhea Review Of Systems (other than mentioned above) Constitutional: negative Ears/Nose/Throat: postnasal drainage Respiratory: cough. Gastrointestinal: negative PHYSICAL EXAMINATION: Blood pressure 114/80, pulse 72, temperature 97.3 ??F (36.3 ??C), temperature source Temporal, weight 73.483 kg (162 lb). General: Patient is well nourished, alert and oriented in no acute distress. Normal mood and affect. Throat: normal mucosa without any lesions or erythema. Neck: supple, no adenopathy, and thyroid normal size, non-tender, without nodularity. Chest wall normal to inspection and palpation. Good excursion bilaterally. Lungs clear to auscultation. Good air movement bilaterally without rales, wheezes, or rhonchi. Cardiac: normal S1 and S2 without any murmur, gallops or rubs. No carotid bruits. No edema or cyanosis. Abdomen: bowel sounds present. Soft and non-tender. No palpable masses or hepatosplenomegaly. ASSESSMENT/PLAN: 1. GERD (gastroesophageal reflux disease) (530.81K) omeprazole 20 MG tablet 2. Post-nasal drip (784.91A) Start omeprazole 20 mg daily for gastro-esophageal reflux symptoms . ALBUTEROL HFA inhaler. She will call if not improved to consider Flonase. documented in this encounter Nursing Notes 04/14/2012 1:40 PM CDT >> RAMBO STARR Wed April 14, 2012 1:49 PM Is aware she is due for a pap. documented in this encounter Plan of Treatment Not on filedocumented as of this encounter Visit Diagnoses Diagnosis GERD (gastroesophageal reflux disease) - Primary Esophageal reflux Post-nasal drip Postnasal drip Cough documented in this encounter Care Teams Ware Dresser Relationship Specialty Start Date End Date Cedric Friedman MD PCP - General 05/30/09 02/21/[address] [place] [address] documented as of this encounter
--- OUTSIDE RECORDS SUMMARY | 2022-08-04 08:46 | XMS_ITS | Encounter Summary ---
:1965 Author Organization [place] Address Critical access hospital0 [facility] [place] [address] Care Team Providers Name Role Phone Cedric Friedman MD Primary Care Provider Encounter Details Date Type Department Care Team Description 02/11/2012 Results Only [facility] Aime Pablo MD in [address] [place] [address] [address] [place] [address] [place] [address] [phone] (Wo rk) Social History Tobacco Use Types Packs/Day Years Used Date Never Smoker Smokeless Tobacco: Never Used Alcohol Use Standard Drinks/Week Comments Yes 0 [...] Procedure Name Priority Date/Time Associated Comments Diagnosis BLOOD GAS VENOUS WITH STAT 02/11/2012 11:05 Re sults for this OXYHEMOGLOBIN AM CDT procedure are in the results section. documented in this encounter Results (ABNORMAL) Blood gas venous and oxyhgb (02/11/2012 11:05 AM CDT) [facility] Method Time Signature Ph Venous 7.36 7.32 - [facility] 7.43 pH [facility] PCO2 Venous 49 40 - 50 [facility] mm Hg [facility] PO2 Venous 22 (L) 25 - 47 [facility] mm Hg [facility] Bicarbonate 27 21 - 28 [facility] Venous mmol/L [facility] FIO2 2L NASAL [facility] CANULA [facility] Oxyhemoglobin 39 % [facility] Venous [facility] Base Excess 1.4 mmol/L [facility] Venous [facility] Comment: Reference range: -7.7 to 1.9 Specimen Anatomical Collection Method Collection Time Receive d Time (Source) Location / / Volume Laterality 02/11/2012 11:05 02/11/2012 AM CDT 11:06 AM CDT Aime Pablo MD LAB - BLOOD ORDERABLES Performing Organization Address City/State/ZIP Code Phon e Number [facility] [place] [place] [address] documented in this encounter Visit Diagnoses Not on filedocumented in this encounter Care Teams Eco Industrial Development Consultant Relationship Specialty Start Date End Date Cedric Friedman MD PCP - General 05/30/09 02/21/21 [facility] [place] [address] [place] [address] documented as of this encounter
--- OUTSIDE RECORDS SUMMARY | 2022-08-04 08:46 | XMS_ITS | Encounter Summary ---
:1965 Author Organization [place] Address [facility] [place] [address] Care Team Providers Name Role Phone Cedric Friedman MD Primary Care Provider Reason for Visit Reason Comments Sick nasal congestion,coughing,fa tigue,facial pressure for approx 1 week Diabetes recheck and refills Encounter Details Date Type Department Care Team Description 08/14/2011 Office Visit [facility] Cedric Friedman, Acute maxillary sinusitis (Primary Dx); System in Arsh Villatoro MD Mixed hyperlipidemia; Family Practice [facility] Arsh Villatoro Hypothyroidism; [address] [place] [address] Diabetes mellitus, type 2 (H ); [place] P[address] [address] Need for prophylactic vaccination and in oculation against influenza; [id number] [place] Acute bronchitis [phone] [id number] Social History Tobacco Use Types Packs/Day Years [...] Sign Reading Time Taken Comments Blood Pressure 130/80 08/14/2011 9:56 AM CDT Pulse 72 08/14/2011 9:56 AM CDT Temperature 36.3 ??C (97.3 ??F) 08/14/2011 9:56 AM CDT Respiratory Rate - - Oxygen Saturation - - Inhaled Oxygen Concentration - - Weight 76.8 kg (169 lb 4.8 oz) 08/14/2011 9:56 AM CDT Height - - Body Mass Index 27.96 02/20/2011 11:13 AM CDT documented in this encounter Progress Notes Cedric Friedman MD - 08/14/2011 10:19 AM CDT Chief Complaint Patient presents with ??? Sick nasal congestion,coughing,fatigue,facial pressure for approx 1 week ??? Diabetes recheck and refills Subjective: Sil is a 45 year old female presenting with sinus symptoms: Location: maxillary Quality: tender, post-nasal drainage and nasal congestion Severity: moderate Duration: 1 weeks Timing: onset as cold symptoms that are steadily worsening Modifying Factors: not better with over the counter meds Associated Symptoms: productive cough. This is keeping her up at night. DIABETES:The patient has a history of diabetes mellitus of moderate severity and long standing duration with no acute modifying factors. No polyuria, polydipsia, blurry vision, chest pain, dyspnea, dysesthesia or claudication. Follows diet as prescribed, but doesn't perform home glucose monitoring regularly. Present therapy includes Glyburide twice daily. Last glyco A1c was A1C 7.9 02/06/2011 Social History: History Substance Use Topics ??? Smoking status: Never Smoker ??? Smokeless tobacco: Never Used ??? Alcohol Use: Yes social Allergies: Allergies Allergen Reactions ??? Oxycodone Itching and Difficulty breathing Percocet ??? Phenergan (Promethazine Hcl) Nausea Convulsions; shaking ??? Metformin Diarrhea Review of Systems: Constitutional:No fevers, chills, or myalgias. Cardiac:No chest pains or palpitations Respitatory: no hemoptysis or shortness of breath Other than noted above, all other pertinant system review is unremarkable. Objective: BP 130/80 Pulse 72 Temp(Src) 97.3 ??F (36.3 ??C) (Temporal) Wt 76.794 kg (169 lb 4.8 oz) General: Patient is well nourished, alert and oriented in no acute distress. Normal mood and affect.Appropiate judgement and insight. Eyes: normal lids and conjunctiva. Sinus: she has tenderness of maxillary region. Nose: normal Throat:normal Neck: supple without any masses or lymphadenopathy. Normal thyroid. Lungs: normal respiratory effort. Clear to auscultation and percussion throughout. Cardiac: normal S1 and S2 without any murmur, gallops or rubs. Assessment/Plan: 1. Acute maxillary sinusitis (461.0) azithromycin (ZITHROMAX) 250 MG tablet 2. Mixed hyperlipidemia (272.2) simvastatin (ZOCOR) 40 MG tablet 3. Hypothyroidism (244.9Y) levothyroxine (SYNTHROID) 50 MCG tablet 4. Diabetes mellitus, type 2 (250.00BC) glyBURIDE (DIABETA / MICRONASE) 5 MG tablet, ORDER FOR DME 5. Need for prophylactic vaccination and inoculation against influenza (V04.81) ADMININSTRATION FEE FLUZONE / FLUVIRIN (INJECTION), FLUZONE Child/Adult (36 months & Older) Preservative free VACCINE,IM 0.5ml [71258] 6. Acute bronchitis (466.0) guaiFENesin/codeine (ROBITUSSIN AC) 100-10 MG/5ML SOLN, azithromycin (ZITHROMAX) 250 MG tablet - new diagnosis - Zithromax - Robitussin with codeine - Decongestants and Increase fluids - follow-up if symptoms worsen or fail to improve. - diabetes mellitus control is uncertain. Await fating labs. Continue meds for now. - Robitussin-AC for cough at night. - Flu shot was given. Micaela Mckeon - 08/14/2011 9:55 AM CDT Sil Power is a 45 year old female. Patient received: FLUZONE INJECTION Patient Questionaire: Did you receive a flu vaccine last year? NO I have a fever or feel ill today? No I have an allergy to eggs, gelatin or thimerosal? No I have had a reaction to the flu vaccine the past? No I have had Guillain-Barnwell??? syndrome? No I have a Latex Allergy? Yes VIS information given documented in this encounter Plan of Treatment Not on filedocumented as of this encounter Visit Diagnoses Diagnosis Acute maxillary sinusitis - Primary Mixed hyperlipidemia Hypothyroidism Unspecified hypothyroidism Diabetes mellitus, type 2 (H) Type II or unspecified type diabetes tori litus without mention of complication, not stated as uncontrolled Need for prophylactic vaccination and in oculation against influenza Acute bronchitis documented in this encounter Care Teams Toggle Press Folder And Feeder Relationship Specialty Start Date End Date Cedric Friedman MD PCP - General 05/30/09 02/21/21 [facility] [address] [place] [address] [address] [place] [address] documented as of this encounter
--- OUTSIDE RECORDS SUMMARY | 2022-08-04 08:46 | XMS_ITS | Encounter Summary ---
:1965 Author Organization [place] Address [address] [place] [address]. [place] [address] Care Team Providers Name Role Phone Cedric Friedman MD Primary Care Provider Encounter Details Date Type Department Care Team Description 02/11/2012 Results Only [facility] Aime Pablo MD in [facility] [address] [facility] [address] [place] [address] [address] [place] [address] [address] [place] [address] [phone] (Wo rk) Social History Tobacco Use Types [...] Name Priority Date/Time Associated Diagnosis Comme nts TROPONIN I STAT 02/11/2012 10:55 AM Results for this CDT procedure are i n the results section . documented in this encounter Results Troponin I (02/11/2012 10:55 AM CDT) P athologist Signature Troponin I ES <0.012 0.000 - [facility] 0.034 ug/L [facility] Specimen Anatomical Collection Method Collection Time Receive d Time (Source) Location / / Volume Laterality 02/11/2012 10:55 02/11/2012 AM CDT 11:04 AM CDT Aime Pablo MD LAB - BLOOD ORDERABLES Performing Organization Address City/State/ZIP Code Phon e Number [facility] [place] [phone] documented in this encounter Visit Diagnoses Not on filedocumented in this encounter Care Teams Type Rolling Machine Operator Relationship Specialty Start Date End Date Cedric Friedman MD PCP - General 05/30/09 02/21/21 [facility] [place] [address] [place] [address] documented as of this encounter
--- OUTSIDE RECORDS SUMMARY | 2022-08-04 08:46 | XMS_ITS | Encounter Summary ---
:1965 Author Organization [place] Address [facility] [address] Care Team Providers Name Role Phone Cedric Friedman MD Primary Care Provider Reason for Visit Reason Comments Medication Question in regards to anxiety medica tion Refill Request celexa Encounter Details Date Type Department Care Team Description 03/08/2012 Office Visit [facility] Cedric Friedman, JESSICA ( generalised anxiety disorder) (Primary Dx); System in Arsh Schaffer MD Vac-dis combinations NEC; Family Practice [facility] Arsh Schaffer Moderate major depression (H) [address] [place] [address] [facility] [place] [address] [address] [place] [phone] Social History Tobacco Use Types Packs/Day Years [...] Sign Reading Time Taken Comments Blood Pressure 110/70 03/08/2012 2:34 PM CDT Pulse 72 03/08/2012 2:34 PM CDT Temperature 36.3 ??C (97.3 ??F) 03/08/2012 2:34 PM CDT Respiratory Rate - - Oxygen Saturation - - Inhaled Oxygen Concentration - - Weight 61.9 kg (136 lb 8 oz) 03/08/2012 2:34 PM CDT Height - - Body Mass Index 22.03 02/12/2012 2:54 PM CDT documented in this encounter Progress Notes Cedric Friedman MD - 03/08/2012 2:48 PM CDT Chief Complaint: Chief Complaint Patient presents with ??? Medication Question in regards to anxiety medication ??? Refill Request celexa The patient complains of anxiety of moderate severity for several months. The patient describes the symptoms as controlled now. The patient describes modifying or exacerbating factors as: none. The patient has attempted the following treatments: Celexa 20 mg daily. The patient denies any other aggravat ing or alleviating factors or associated symptoms. JESSICA-7 Over the last 2 weeks, how often have you been bothered by the following problems? Not at all -0 Several days -1 More than half the days-2 Nearly every day -3 1. Feeling nervous, anxious or on edge 0 2. Not being able to stop or control worrying 1 3. Worrying too much about different things 1 4. Trouble relaxing 0 5. Being so restless that it is hard to sit still 0 6. Becoming easily annoyed or irritable 0 7. Feeling afraid as if something awful might happen 0 Total__2___ Cut points for: Mild Anxiety = 5 Moderate= 10 Severe= 15 Patient Active Problem List Diagnoses Code ??? Diabetes Mellitus, Type 2 250.00BC ??? Hypothyroidism 244.9Y ??? Mixed Hyperlipidemia 272.2 Current outpatient prescriptions Medication Sig ??? cetirizine (ZYRTEC) 10 MG tablet Take 1 tablet by mouth daily. ??? LANTUS SOLOSTAR 100 UNIT/ML injection Inject 18 Units Subcutaneous 2 times daily. ??? azithromycin (ZITHROMAX) 250 MG tablet Take by mouth for 5 days. Two tablets first day, then onetablet daily for four days ??? levothyroxine (SYNTHROID, LEVOTHROID) 75 MCG tablet Take 1 tablet by mouth daily. ??? simvastatin (ZOCOR) 40 MG tablet Take 1 tablet by mouth At Bedtime. ??? citalopram (CELEXA) 20 MG tablet Take 1 tablet by mouth daily. Take 1/2 tablet (10 mg) for 1-2 weeks, then increase to 1 tablet orally daily ??? metFORMIN (GLUCOPHAGE-XR) 500 MG 24 hr tablet Take 1 tablet by mouth daily (with dinner). ??? ALPRAZolam (XANAX) 0.25 MG tablet Take 1 tablet by mouth 3 times daily as needed for anxiety. ??? ORDER FOR DME Glucose monitoring test strips and lancets. ONE TOUCH TEST STRIPS Test 2 times daily. . GRUPO: 99 Insulin dependent: NO Dx Code: 250.00BC Diabetes mellitus, type 2 ??? albuterol (PROVENTIL HFA: VENTOLIN HFA) 108 (90 BASE) MCG/ACT inhaler Inhale 2 puffs into the lungs every 6 hours. ??? ASPIRIN 81 MG OR TABS ONE DAILY Allergies Allergen Reactions ??? Oxycodone Itching and Difficulty breathing Percocet ??? Phenergan (Promethazine Hcl) Nausea Convulsions; shaking ??? Metformin Diarrhea Review Of Systems (other than mentioned above) Constitutional: negative Cardiovascular: negative Psych: as above. PHYSICAL EXAMINATION: Blood pressure 110/70, pulse 72, temperature 97.3 ??F (36.3 ??C), temperature source Temporal, weight 61.916 kg (136 lb 8 oz), last menstrual period 01/15/2012. General: Patient is well nourished, alert and oriented in no acute distress. Normal mood and affect. Lungs clear to auscultation. Good air movement bilaterally without rales, wheezes, or rhonchi. Cardiac: normal S1 and S2 without any murmur, gallops or rubs. No carotid bruits. No edema or cyanosis. Abdomen: bowel sounds present. Soft and non-tender. No palpable masses or hepatosplenomegaly. ASSESSMENT/PLAN: Patient Active Problem List 1. 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 JESSICA (generalised anxiety disorder) (300.02F) citalopram (CELEXA) 20 MG tablet 3. Moderate major depression (296.22F) citalopram (CELEXA) 20 MG tablet Anxiety is controlled now. Continue Celexa 20 mg daily. She declines a foot exam today. Recheck in 6 months for anxiety and diabetes mellitus. Tetanus shot was given. documented in this encounter Nursing Notes 03/08/2012 2:25 PM CDT >> RAMBO STARR [facility] Mar 08, 2012 2:41 PM Is aware she is due for a pap. documented in this encounter Plan of Treatment Not on filedocumented as of this encounter Visit Diagnoses Diagnosis JESSICA (generalised anxiety disorder) - Caitie lambert Generalized anxiety disorder Need for prophylactic vaccination and in oculation against other combinations of diseases Moderate major depression (H) Major depressive disorder, single episod e, moderate documented in this encounter Care Teams Dispensary Clerk Relationship Specialty Start Date End Date Cedric Friedman MD PCP - General 05/30/09 02/21/21 [facility] [address] [place] [address] documented as of this encounter
--- OUTSIDE RECORDS SUMMARY | 2022-08-04 08:46 | XMS_ITS | Encounter Summary ---
:1965 Author Organization [place] Address [facility] [place] [address] Care Team Providers Name Role Phone Cedric Friedman MD Primary Care Provider Encounter Details Date Type Department Care Team Description 02/11/2012 Results Only [facility] Aime Pablo MD in [facility] [address] [place] [address] [place] [address] [address] [place] [address] [place] [address] [phone] (Wo rk) Social History Tobacco Use Types [...] Priority Date/Time Associated Diagnosis Comme nts TROPONIN POCT Routine 02/11/2012 10:55 AM Results for this CDT procedure are i n the results section . documented in this encounter Results Troponin POCT (02/11/2012 10:55 AM CDT) P athologist Signature Troponin I 0.00 0.00 - 0.10 [facility] ug/L [facility] Comment: Performed at Point of Care Specimen Anatomical Collection Method Collection Time Receive d Time (Source) Location / / Volume Laterality 02/11/2012 10:55 02/11/2012 AM CDT 11:04 AM CDT Aime Pablo MD LAB - ENTER/EDIT POCT Performing Organization Address City/State/ZIP Code Phon e Number [facility] [place] [id number] documented in this encounter Visit Diagnoses Not on filedocumented in this encounter Care Teams Repairer Finished Metal Relationship Specialty Start Date End Date Cedric Friedman MD PCP - General 05/30/09 02/21/21 [facility] [place] [address] [place] [address] documented as of this encounter
--- OUTSIDE RECORDS SUMMARY | 2022-08-04 08:46 | XMS_ITS | Encounter Summary ---
:1965 Author Organization [place] Address [facility] [place] [address] Care Team Providers Name Role Phone Cedric Friedman MD Primary Care Provider Encounter Details Date Type Department Care Team Description 02/11/2012 Results Only [facility] Aime Pablo MD in [facility] [address] [place] [address] [place] [address] [address] [place] [address] [address] [place] [address] [phone] (Wo rk) Social History Tobacco Use Types [...] Name Priority Date/Time Associated Diagnosis Comme nts XR CHEST 2 VIEWS Routine 02/11/2012 12:16 PM Resu lts for this CDT procedure are i n the results section. documented in this encounter Results X-ray Chest 2 vws* (02/11/2012 12:16 PM CDT) Anatomical Region Laterality Modality Chest Other Specimen (Source) Anatomical Collection Method Collection Time Re ceived Time Location / / Volume Laterality 02/11/2012 12:16 PM CDT Impressions 02/11/2012 1:16 PM CDT CHEST TWO VIEWS ??02/11/2012 at 1213 hour s HISTORY: Right-sided to mid chest pain. Hard to breathe. COMPARISON: 03/21/2010. FINDINGS: The lungs are clear. Normal si zed cardiac silhouette. IMPRESSION: No evidence of active cardio pulmonary disease. Aime Pablo MD IMG DIAGNOSTIC IMAGING ORDER ALISHA documented in this encounter Visit Diagnoses Not on filedocumented in this encounter Care Teams High Lighter Relationship Specialty Start Date End Date Cedric Friedman MD PCP - General 05/30/09 02/21/[address] [address] documented as of this encounter
--- OUTSIDE RECORDS SUMMARY | 2022-08-04 08:46 | XMS_ITS | Encounter Summary ---
:1965 Author Organization [place] Address [facility] [place] [address] Care Team Providers Name Role Phone Cedric Friedman MD Primary Care Provider Encounter Details Date Type Department Care Team Description 09/25/[address] [facility] Fr[facility], None Appointment System in [place] Notificat ion Letter : Medical Records [facility] [address] [place] [address] Social History Tobacco [...] on filedocumented in this encounter Care Teams Journeyman Tool And Die Maker Relationship Specialty Start Date End Date Cedric Friedman MD PCP - General 05/30/09 02/21/21 [facility] [place] [address] [place] [phone] documented as of this encounter
--- OUTSIDE RECORDS SUMMARY | 2022-08-04 08:46 | XMS_ITS | Encounter Summary ---
:1965 Author Organization [place] Address [address] [facility] [place] [address] Care Team Providers Name Role Phone Cedric Friedman MD Primary Care Provider Encounter Details Date Type Department Care Team Description 11/21/2011 Medical Correspondence [facility] Fr[facility], None Letter - Summary : System in [facility] Medical Records [address] [place] [address] Social History Tobacco Use Types Packs/Day [...] Name Priority Date/Time Associated Diagnosis Comme nts LIPID PROFILE Routine 10/23/2011 Results for th is procedure are in the resu lts section. documented in this encounter Results Lipid Profile (10/23/2011) Analysis Performed At Patho logist Time Signature Cholesterol 174 115 - 199 [facility] mg/dL Triglycerides 239 mg/dL [facility] HDL Cholesterol 49 mg/dL [facility] LDL Cholesterol 77 mg/dL [facility] Calculated VLDL-Cholesterol ng/dL [facility] Cholesterol/HDL [facility] Ratio Specimen (Source) Anatomical Location Collection Method / Collectio n Time Received Time / Laterality Volume Blood specimen (specimen) Narrative This result has an attachment that is no t available. L.C. Supervisor [facility] LAB - BLOOD ORDERABLES Performing Organization Address City/State/ZIP Code Phon e Number [facility] documented in this encounter Visit Diagnoses Not on filedocumented in this encounter Care Teams Rim Fire Priming Tool Setter Relationship Specialty Start Date End Date Cedric Friedman MD PCP - General 05/30/09 02/21/[address] [place] [address] documented as of this encounter
--- OUTSIDE RECORDS SUMMARY | 2022-08-04 08:46 | XMS_ITS | Encounter Summary ---
:1965 Author Organization [place] Address [facility] [place] [address] Care Team Providers Name Role Phone Cedric Friedman MD Primary Care Provider Encounter Details Date Type Department Care Team Description 02/11/2012 Results Only [facility] Aime Pablo MD in [facility] [address] [place] [address] [place] [address] [address] [place] [address] [place] [address] [phone] (Wo rk) Social History Tobacco Use Types [...] Procedure Name Priority Date/Time Associated Comments Diagnosis PARTIAL THROMBOPLASTIN STAT 02/11/2012 10:55 R esults for this TIME AM CDT procedure are i n the results section. documented in this encounter Results Partial thromboplastin time (02/11/2012 10:55 AM CDT) P athologist Signature PTT 31 22 - 37 sec [facility] Specimen Anatomical Collection Method Collection Time Receive d Time (Source) Location / / Volume Laterality 02/11/2012 10:55 02/11/2012 AM CDT 11:04 AM CDT Aime Pablo MD LAB - BLOOD ORDERABLES Performing Organization Address City/State/ZIP Code Phon e Number [facility] [place] [place] [address] documented in this encounter Visit Diagnoses Not on filedocumented in this encounter Care Teams Book Cutter Relationship Specialty Start Date End Date Cedric Friedman MD PCP - General 05/30/09 02/21/21 [facility] [place] [address] [place] [address] documented as of this encounter
--- OUTSIDE RECORDS SUMMARY | 2022-08-04 08:46 | XMS_ITS | Encounter Summary ---
:1965 Author Organization [place] Address [address] [facility] [place] [place] [address] Care Team Providers Name Role Phone Cedric Friedman MD Primary Care Provider Encounter Details Date Type Department Care Team Description 08/21/[address] [facility] Mixed hyp erlipidemia; System in [place] [facility] Diabetes mellitus, type 2 (H ); Ron [place] [address] Social History Tobacco Use Types Packs/Day Years [...] this encounter Visit Diagnoses Diagnosis Mixed hyperlipidemia Diabetes mellitus, type 2 (H) Type II or unspecified type diabetes tori litus without mention of complication, not stated as uncontrolled Hypothyroidism Unspecified hypothyroidism documented in this encounter Care Teams Chief Dog License Inspector Relationship Specialty Start Date End Date Cedric Friedman MD PCP - General 05/30/09 02/21/21 [facility] [address] [place] [address] documented as of this encounter
--- OUTSIDE RECORDS SUMMARY | 2022-08-04 08:46 | XMS_ITS | Encounter Summary ---
:1965 Author Organization [place] Address [facility] [place] [address] Care Team Providers Name Role Phone Cedric Friedman MD Primary Care Provider Reason for Visit Reason Onset Date Comments Refill Request 05/09/2011 diabetic testing sup plies Encounter Details Date Type Department Care Team Description 05/09/2011 Refill [facility] Cedric Friedman MD Refill Request (diabetic System in [place] [facility] [place] testing supplies) Family Practice [address] [facility] [address] [place] [address] [place] [address] [place] [address] [phone] (Wo rk) Social History Tobacco Use Types [...] this encounter Miscellaneous Notes Telephone Encounter - Ekta Arango - 05/09/2011 4:20 PM CDT Accepting this Rx will FAX it directly to the pharmacy. PCP GENESIS: 03/27/2011 Patient is out of the office Last visit: BP Readings from Last 1 Encounters: 03/27/11 120/72 Your most recent blood tests on record are listed for your review below. A1C 7.9 02/06/2011] (goal less than 7.0% (best if less than 6.5%)) CHOL 255 02/06/2011] (goal less than 200) TRIG 268 02/06/2011] (goal less than 149) HDL 63 02/06/2011] (goal greater than 45 for men and greater than 50 for women) LDL 139 02/06/2011] (goal less than 100) MICROALBUMIN 21.09 02/06/2011] normal 0 - 25 Please close encounter when completed. Thank you. documented in this encounter Plan of Treatment Not on filedocumented as of this encounter Visit Diagnoses Diagnosis Diabetes mellitus, type 2 (H) - Primary Type II or unspecified type diabetes tori litus without mention of complication, not stated as uncontrolled documented in this encounter Care Teams Mechanic Marine Engine Relationship Specialty Start Date End Date Cedric Friedman MD PCP - General 05/30/09 02/21/21 [facility] [address] [place] [address] documented as of this encounter
--- OUTSIDE RECORDS SUMMARY | 2022-08-04 08:46 | XMS_ITS | Encounter Summary ---
:1965 Author Organization [place] Address [facility] [place] [address] Care Team Providers Name Role Phone Cedric Friedman MD Primary Care Provider Reason for Visit Reason Comments Physical review lab results,refills Left Message To Call Encounter Details Date Type Department Care Team Description 02/13/2011 Office Visit [facility] Cedric Friedman ERRON EOUS System in Arsh Villatoro MD ENCOUNTER--DISREGARD Family Practice [facility] [place] (Primary Dx) [address] [place] [address] [place], [place] [address] [address] [place] [phone] Social History Tobacco Use Types Packs/Day Years Used Date Never Smoker Alcohol Use Standard Drinks/Week Comments Yes 0 [...] on file documented as of this encounter Progress Notes Cedric Friedman MD - 02/17/2011 8:05 AM CDT This encounter was opened in error. Please disregard. documented in this encounter Plan of Treatment Not on filedocumented as of this encounter Visit Diagnoses Diagnosis ERRONEOUS ENCOUNTER--DISREGARD - Primary documented in this encounter Care Teams Customer Service Operator Relationship Specialty Start Date End Date Cedric Friedman MD PCP - General 05/30/09 02/21/21 [facility] [place] [address] [facility] [address] [place] [address] documented as of this encounter
--- OUTSIDE RECORDS SUMMARY | 2022-08-04 08:46 | XMS_ITS | Encounter Summary ---
:1965 Author Organization [place] Address [address] [place] [address]. [place] [address] Care Team Providers Name Role Phone Cedric Friedman MD Primary Care Provider Encounter Details Date Type Department Care Team Description 02/11/2012 Results Only [facility] Aime Pablo MD in [address] [place] [address] [address] [place] [address] [place] [address] [phone] (Wo rk) Social History Tobacco Use Types [...] Name Priority Date/Time Associated Diagnosis Comme nts HEMOGLOBIN A1C Routine 02/11/2012 10:55 AM Result s for this CDT procedure are i n the results section . documented in this encounter Results (ABNORMAL) Hemoglobin A1c (02/11/2012 10:55 AM CDT) P athologist Signature Hemoglobin A1C 7.6 (H) 4.3 - 6.0 [facility] % [facility] Specimen Anatomical Collection Method Collection Time Receive d Time (Source) Location / / Volume Laterality 02/11/2012 10:55 02/11/2012 AM CDT 11:04 AM CDT Aime Pablo MD LAB - BLOOD ORDERABLES Performing Organization Address City/State/ZIP Code Phon e Number [facility] [place] [facility] [place] [facility] [place] [address] documented in this encounter Visit Diagnoses Not on filedocumented in this encounter Care Teams Land Leasing Information Clerk Relationship Specialty Start Date End Date Cedric Friedman MD PCP - General 05/30/09 02/21/21 [facility] [place] [address] [place] [address] documented as of this encounter
--- OUTSIDE RECORDS SUMMARY | 2022-08-04 08:46 | XMS_ITS | Encounter Summary ---
:1965 Author Organization [place] Address [facility] [place] [address] Care Team Providers Name Role Phone Cedric Friedman MD Primary Care Provider Encounter Details Date Type Department Care Team Description 02/11/2012 Results Only [facility] Aime Pablo MD in [facility] [address] [place] [address] [place] [address] [address] [place] [address] [place] [address] [phone] (Wo rk) Social History Tobacco Use Types [...] Procedure Name Priority Date/Time Associated Comments Diagnosis HCG QUALITATIVE STAT 02/11/2012 10:55 Results for this AM CDT procedure are i n the results section. documented in this encounter Results HCG qualitative (02/11/2012 10:55 AM CDT) [facility] gist Method Time Signature HCG Qualitative Negative NEG [facility]/RAD Specimen Anatomical Collection Method Collection Time Receive d Time (Source) Location / / Volume Laterality 02/11/2012 10:55 02/11/2012 AM CDT 11:04 AM CDT Aime Pablo MD LAB - BLOOD ORDERABLES Performing Organization Address City/State/ZIP Code Phon e Number [facility] [place] [facility] [place] [address] documented in this encounter Visit Diagnoses Not on filedocumented in this encounter Care Teams Outdoor Advertising Leasing Agent Relationship Specialty Start Date End Date Cedric Friedman MD PCP - General 05/30/09 02/21/21 [facility] [place] [address] [place] [address] documented as of this encounter
--- OUTSIDE RECORDS SUMMARY | 2022-08-04 08:46 | XMS_ITS | Encounter Summary ---
:1965 Author Organization [place] Address [facility] [address] Care Team Providers Name Role Phone Yvrose Cox MD Primary Care Provider Reason for Visit Reason Comments Sick productive cough,sinus conge stion for approx 2 days Encounter Details Date Type Department Care Team Description 03/27/2011 Office Visit [facility] Yvrose Cox, Acute upper respiratory infections of unspecified site (Primary Dx); System in Arsh Villatoro MD Seasonal allergic rhinitis Family Practice [facility] [address] [place], [place] [address] [address] [place] [phone] Social History Tobacco Use Types Packs/Day Years [...] Sign Reading Time Taken Comments Blood Pressure 120/72 03/27/2011 9:57 AM CDT Pulse 96 03/27/2011 9:57 AM CDT Temperature 36.8 ??C (98.2 ??F) 03/27/2011 9:57 AM CDT Respiratory Rate - - Oxygen Saturation - - Inhaled Oxygen Concentration - - Weight 78.1 kg (172 lb 3.2 oz) 03/27/2011 9:57 AM CDT Height - - Body Mass Index 28.44 02/20/2011 11:13 AM CDT documented in this encounter Progress Notes Yvrose Cox MD - 03/27/2011 10:26 AM CDT Chief Complaint Patient presents with ??? Sick productive cough,sinus congestion for approx 2 days Subjective: Sil is a 45 year old female presenting with cough symptoms: Location: chest Quality: mucopurulent discharge Severity: moderate Duration: 2 days Timing: onset as cold symptoms that are steadily worsening Modifying Factors: not better with over the counter meds, Zycan, and Robitussin-AC. Associated Symptoms: sore throat, congestion, sinus pressure and achiness. symptoms are worse aroundtobacco smoke, which she is exposed to this at work. Outpatient prescriptions marked as taking for the 03/27/11 encounter (Office Visit) with YVROSE COX: simvastatin (ZOCOR) 40 MG tablet Take 1 tablet by mouth At Bedtime. Disp: 90 tablet Rfl: 1 levothyroxine (SYNTHROID) 50 MCG tablet Take 1 tablet by mouth daily. Disp: 90 tablet Rfl: 1 glyBURIDE (DIABETA / MICRONASE) 5 MG tablet Take 1 tablet by mouth 2 times daily (with meals). Disp:180 tablet Rfl: 1 ketoconazole (NIZORAL) 2 % cream Apply topically 2 times daily. Apply to affected area Disp: 60 g Rfl: 5 PROAIR HFA 108 (90 BASE) MCG/ACT IN AERS INHALE 1 TO 2 PUFFS EVERY 4 TO 6 HOURS NEEDED Disp: 1 Inhaler Rfl: 12 ONE TOUCH TEST STRIPS TEST TEST 2 TIMES A DAY Disp: 1 Package Rfl: 12 ASPIRIN 81 MG OR TABS ONE DAILY Disp: 100 Rfl: 3 Social History: History Substance Use Topics ??? [...] pertinant system review is unremarkable. Objective: BP 120/72 Pulse 96 Temp(Src) 98.2 ??F (36.8 ??C) (Temporal) Wt 78.109 kg (172 lb 3.2 oz) General: Patient is well nourished, alert and oriented in no acute distress. Normal mood and affect.Appropiate judgement and insight. Eyes: normal lids and conjunctiva. Sinus: she has no tenderness of her sinus region. Nose: normal Throat:normal Neck: supple without any masses or lymphadenopathy. Normal thyroid. Lungs: normal respiratory effort. Clear to auscultation and percussion throughout. Cardiac: normal S1 and S2 without any murmur, gallops or rubs. Assessment/Plan: 1. Acute upper respiratory infections of unspecified site (465.9) albuterol (PROVENTIL HFA: VENTOLINHFA) 108 (90 BASE) MCG/ACT inhaler, azithromycin (ZITHROMAX) 250 MG tablet 2. Seasonal allergic rhinitis (477.9A) cetirizine (ZYRTEC) 10 MG tablet - Claritin for seasonal allergies and smoke allergies. - ZITHROMAX if not improved with jerson Schulte, Dequanitussin-AC in 1 week. - ALBUTEROL HFA inhaler for chest tightness and around smoke exposure documented in this encounter Plan of Treatment Not on filedocumented as of this encounter Visit Diagnoses Diagnosis Acute upper respiratory infections of un specified site - Primary Seasonal allergic rhinitis Allergic rhinitis, cause unspecified documented in this encounter Care Teams Assistant Women'S Tennis Coach Relationship Specialty Start Date End Date Yvrose Cox MD PCP - General 05/30/09 02/21/21 [facility] [place] [address] [facility] [address] [place] [address] documented as of this encounter
--- OUTSIDE RECORDS SUMMARY | 2022-08-04 08:46 | XMS_ITS | Encounter Summary ---
:1965 Author Organization [place] Address [facility] [place] [address] Care Team Providers Name Role Phone Cedric Friedman MD Primary Care Provider Encounter Details Date Type Department Care Team Description 02/11/2012 Results Only [facility] Aime Pablo MD in [facility] [address] [facility] [address] [place] [address] [address] [place] [address] [address] [place] [address] [phone] (Wo rk) Social History Tobacco Use Types [...] Name Priority Date/Time Associated Diagnosis Comme nts MAGNESIUM STAT 02/11/2012 10:55 AM Results for this CDT procedure are i n the results section . documented in this encounter Results Magnesium (02/11/2012 10:55 AM CDT) athologist Signature Magnesium 2.1 1.6 - 2.3 [facility] mg/dL [facility] Specimen Anatomical Collection Method Collection Time Receive d Time (Source) Location / / Volume Laterality 02/11/2012 10:55 02/11/2012 AM CDT 11:04 AM CDT Aime Pablo MD LAB - BLOOD ORDERABLES Performing Organization Address City/State/ZIP Code Phon e Number [facility] [place] [facility] [address] documented in this encounter Visit Diagnoses Not on filedocumented in this encounter Care Teams Lens And Frames Prescription Clerk Relationship Specialty Start Date End Date Cedric Friedman MD PCP - General 05/30/09 02/21/21 [facility] [place] [address] [place] [address] documented as of this encounter
--- OUTSIDE RECORDS SUMMARY | 2022-08-04 08:46 | XMS_ITS | Encounter Summary ---
:1965 Author Organization [place] Address [facility] [place] [address] Care Team Providers Name Role Phone Cedric Friedman MD Primary Care Provider Reason for Visit Reason Onset Date Comments Refill Request 01/20/2011 zocor Encounter Details Date Type Department Care Team Description 01/20/2011 Refill [facility] Cedric Friedman MD Refill Request (zocor) System in [facility] Family Practice [address] [place] [address] [place] [address] [address] [place] [address] [phone] (Wo rk) Social History Tobacco Use Types [...] this encounter Miscellaneous Notes Telephone Encounter - Salma Rae RN - 01/21/2011 9:07 AM CST LM on identifiable vm instructing pt on the below. GER WOMEN Telephone Encounter - Cedric Friedman MD - 01/20/2011 5:11 PM CST Med(s) faxed to [facility] for 1 month. Please call patient to inform her. Thanks. Appointment needed. She also needs labs done prior to appointment. GER WOMEN Telephone Encounter - Veronica Lamb - 01/20/2011 4:37 PM CST Last visit: BP Readings from Last 1 Encounters: 10/23/2010 112/74 Unable to approve medication per the RN refill protocol due to: - Incomplete labs, patient sent note for lab work, not completed. PCP please review. TSH 2.71 07/30/2010 Your most recent blood tests on record are listed for your review below. A1C 8.0 07/30/2010] (goal less than 7.0% (best if less than 6.5%)) CHOL 186 07/30/2010] (goal less than 200) TRIG 259 07/30/2010] (goal less than 149) HDL 49 07/30/2010] (goal greater than 45 for men and greater than 50 for women) LDL 85 07/30/2010] (goal less than 100) MICROALBUMIN 7.09 07/30/2010] normal 0 - 25 Hypercholesterolemia Labs: AST 80 03/21/2010 ALT 83 07/30/2010 CHOL 186 07/30/2010 TRIG 259 07/30/2010 HDL 49 07/30/2010 LDL 85 07/30/2010 GER WOMEN Telephone Encounter - Norma Adame - 01/20/2011 8:14 AM CST Faxed request from pharmacy,will be directly faxed back if approved. PCP GENESIS 03/18/10 Close encounter when completed. Thank you. GER WOMEN documented in this encounter Plan of Treatment Not on filedocumented as of this encounter Visit Diagnoses Diagnosis Mixed hyperlipidemia - Primary documented in this encounter Care Teams Autocad Operator Relationship Specialty Start Date End Date Cedric Friedman MD PCP - General 05/30/09 02/21/21 [facility] Arsh Schaffer [address] [place] [address] documented as of this encounter
--- OUTSIDE RECORDS SUMMARY | 2022-08-04 08:46 | XMS_ITS | Encounter Summary ---
:1965 Author Organization [place] Address [address] [facility] [place] [address] Care Team Providers Name Role Phone Cedric Friedman MD Primary Care Provider Encounter Details Date Type Department Care Team Description 09/12/2011 Orders Only [facility] Diabetes mellitus, type 2 (H); System in [place] Mixed hyperlipidemia; [address] [place] [address] Social History Tobacco Use Types Packs/Day [...] Name Priority Date/Time Associated Diagnosis Comme nts ALBUMIN RANDOM URINE Routine 09/12/2011 7:12 Diabetes mellitus , Results for this QUANTITATIVE AM CDT type 2 (H) procedure are i n the results section. TSH WITH FREE T4 Routine 09/12/2011 7:11 Hypothyroidism Result s for this REFLEX AM CDT procedure are i n the results section. LIPID PROFILE Routine 09/12/2011 7:11 Mixed hyperlipidemia Res ults for this AM CDT procedure are i n the results section. HEMOGLOBIN A1C Routine 09/12/2011 7:11 Diabetes mellitus, Resu lts for this AM CDT type 2 (H) procedure are i n the results section. ALT Routine 09/12/2011 7:11 Mixed hyperlipidemia Resu lts for this AM CDT procedure are i n the results section. BASIC METABOLIC Routine 09/12/2011 7:11 Diabetes mellitus, Res ults for this PANEL AM CDT type 2 (H) procedure are i n the results section. documented in this encounter Results Microalbumin quantitative random urine (09/12/2011 7:12 AM CDT) athologist Signature Creatinine 169 mg/dL [facility] Urine [facility] Albumin Urine 23 mg/L [facility] mg/L [facility] Albumin Urine 13.61 0 - 20 [facility] mg/g Cr mg/g Cr [facility] Specimen Anatomical Collection Method Collection Time Receive d Time (Source) Location / / Volume Laterality Urine specimen 09/12/2011 7:12 AM 011 7:13 (specimen) CDT AM CDT Cedric Friedman MD LAB - URINE ORDERABLES Performing Organization Address City/State/ZIP Code Phon e Number [facility] [address] TSH with free T4 reflex (09/12/2011 7:11 AM CDT) athologist Signature TSH 2.89 0.4 - 5.0 [facility] mU/L [facility] Specimen Anatomical Collection Method Collection Time Receive d Time (Source) Location / / Volume Laterality Blood specimen 09/12/2011 7:11 AM 011 7:12 (specimen) CDT AM CDT Cedric Friedman MD LAB - BLOOD ORDERABLES Performing Organization Address City/State/ZIP Code Phon e Number [facility] [address] (ABNORMAL) Hemoglobin A1c (09/12/2011 7:11 AM CDT) athologist Signature Hemoglobin A1C 9.1 (H) 4.3 - 6.0 [facility] % [facility] Specimen Anatomical Collection Method Collection Time Receive d Time (Source) Location / / Volume Laterality Blood specimen 09/12/2011 7:11 AM 011 7:12 (specimen) CDT AM CDT Cedric Friedman MD LAB - BLOOD ORDERABLES Performing Organization Address City/State/ZIP Code Phon e Number [facility] [address] (ABNORMAL) Basic metabolic panel (09/12/2011 7:11 AM CDT) P athologist Signature Sodium 144 133 - 144 [facility] mmol/L [facility] Potassium 4.7 3.4 - 5.3 [facility] mmol/L [facility] Chloride 104 94 - 109 [facility] mmol/L [facility] Carbon Dioxide 30 20 - 32 [facility] mmol/L [facility] Anion Gap 10 6 - 17 [facility] mmol/L [facility] Glucose 205 (H) 60 - 99 [facility] mg/dL [facility] Comment: Fasting specimen Urea Nitrogen 13 5 - 24 mg/dL [facility] [facility] Creatinine 0.76 0.52 - 1.04 mg/dL [place] [facility] GFR Estimate 83 >60 mL/min/1.7m2 [place] [facility] ED [facility] GFR Estimate If Black >90 >60 mL/min/1.7m2 [facility] Calcium 9.7 8.5 - 10.4 mg/dL [facility] Specimen Anatomical Collection Method Collection Time Receive d Time (Source) Location / / Volume Laterality Blood specimen 09/12/2011 7:11 AM 011 7:12 (specimen) CDT AM CDT Cedric Friedman MD LAB - BLOOD ORDERABLES Performing Organization Address City/State/ZIP Code Phon e Number [facility] [address] (ABNORMAL) ALT (09/12/2011 7:11 AM CDT) P athologist Signature ALT 74 (H) 0 - 50 U/L [facility] Specimen Anatomical Collection Method Collection Time Receive d Time (Source) Location / / Volume Laterality Blood specimen 09/12/2011 7:11 AM 011 7:12 (specimen) CDT AM CDT Cedric Friedman MD LAB - BLOOD ORDERABLES Performing Organization Address City/[facility]/ZIP Code Phon e Number [facility] [address] (ABNORMAL) Lipid Profile (09/12/2011 7:11 AM CDT) P athologist Signature Cholesterol 172 0 - 200 [place] [facility] mg/dL [facility] Comment: LDL Cholesterol is the primary guide to therapy. The NCEP recommends further evaluation of: patients with cholesterol greater than 200 mg/dL if additional risk facto rs are present, cholesterol greater than 240 mg/dL, triglycerides greater than 1 50 mg/dL, or HDL less than 40 mg/dL. Triglycerides 167 (H) 0 - 150 mg/dL [facility] Comment: Fasting specimen HDL Cholesterol 57 50 - 110 mg/dL [place] [facility] LDL Cholesterol Calculated 82 0 - 129 mg/dL [place] [facility] Comment: LDL Cholesterol is the primary guide to therapy: LDL-cholesterol goal in high risk patients is <100 mg/dL and in very high risk patients is <70 mg/dL. VLDL-Cholesterol 33 (H) 0 - 30 mg/dL [facility] R ED [facility] Cholesterol/HDL Ratio 3.0 0.0 - 5.0 [place] [facility] Specimen Anatomical Collection Method Collection Time Receive d Time (Source) Location / / Volume Laterality Blood specimen 09/12/2011 7:11 AM 011 7:12 (specimen) CDT AM CDT Cedric Friedman MD LAB - BLOOD ORDERABLES Performing Organization Address City/[facility]/ZIP Code Phon e Number [facility] [facility] [address] documented in this encounter Visit Diagnoses Diagnosis Diabetes mellitus, type 2 (H) Type II or unspecified type diabetes tori litus without mention of complication, not stated as uncontrolled Mixed hyperlipidemia Hypothyroidism Unspecified hypothyroidism documented in this encounter Care Teams Knife Edger Relationship Specialty Start Date End Date Cedric Friedman MD PCP - General 05/30/09 02/21/21 [facility] [place] [address] [place] [address] documented as of this encounter
--- OUTSIDE RECORDS SUMMARY | 2022-08-04 08:46 | XMS_ITS | Encounter Summary ---
:1965 Author Organization [place] Address [facility] [place] [address] Care Team Providers Name Role Phone Cedric Friedman MD Primary Care Provider Encounter Details Date Type Department Care Team Description 02/11/2012 Results Only [facility] Aime Pablo MD in [facility] [address] [place] [address] [place] [address] [address] [place] [address] [address] [place] [address] [phone] (Wo rk) Social History Tobacco Use Types [...] Name Priority Date/Time Associated Diagnosis Comme nts NT PROBNP INPATIENT STAT 02/11/2012 10:55 AM R esults for this CDT procedure are i n the results section. documented in this encounter Results Nt probnp inpatient (02/11/2012 10:55 AM CDT) P athologist Signature N-Terminal Pro 17 0 - 450 [facility] BNP Inpatient pg/mL [facility] Comment: Reference range shown and results flagge d as abnormal are suggested inpatient cut points for confirming diagnosis if CHF in an acute setting. Establishing a baseline value for each individual sabine ent is useful for follow-up. An inpatient or emergency department NT-pr oPBNP <300 pg/mL effectively rules out acute CHF, with 99% negative predictive value. The outpatient non-acute reference range for ruling out CHF is: 0-125 pg/mL (age 18 to less than 75) 0-450 pg/mL (age 75 yrs and older) Specimen Anatomical Collection Method Collection Time Receive d Time (Source) Location / / Volume Laterality 02/11/2012 10:55 02/11/2012 AM CDT 11:04 AM CDT Aime Pablo MD LAB - BLOOD ORDERABLES Performing Organization Address City/State/ZIP Code Phon e Number [facility] [place] [facility] [address] documented in this encounter Visit Diagnoses Not on filedocumented in this encounter Care Teams Potash Flaker Relationship Specialty Start Date End Date Cedric Friedman MD PCP - General 05/30/09 02/21/21 [facility] [place] [address] [place] [address] documented as of this encounter
--- OUTSIDE RECORDS SUMMARY | 2022-08-04 08:46 | XMS_ITS | Encounter Summary ---
:1965 Author Organization [place] Address [facility] [place] [address] Care Team Providers Name Role Phone Cedric Friedman MD Primary Care Provider Encounter Details Date Type Department Care Team Description 02/11/2012 Results Only [facility] Aime Pablo MD in [facility] [address] [place] [address] [place] [address] [address] [place] [address] [place] [address] [phone] (Wo rk) Social History Tobacco Use Types [...] Procedure Name Priority Date/Time Associated Comments Diagnosis CBC WITH PLATELETS & STAT 02/11/2012 10:55 Res ults for this DIFFERENTIAL AM CDT procedure are i n the results section. documented in this encounter Results (ABNORMAL) CBC with platelets differential (02/11/2012 10:55 AM CDT) [facility] Method Time Signature WBC 8.1 4.0 - [facility] 11.0 [facility] 10e9/L RBC Count 5.40 (H) 3.8 - 5.2 [facility] 10e12/L [facility] Hemoglobin 14.1 11.7 - [facility] 15.7 g/dL [facility] Hematocrit 42.9 35.0 - [facility] 47.0 % [facility] MCV 79 78 - 100 [facility] fl [facility] MCH 26.1 (L) 26.5 - [facility] 33.0 pg [facility] MCHC 32.9 31.5 - [facility] 36.5 g/dL [facility] RDW 13.3 10.0 - [facility] 15.0 % [facility] Platelet Count 324 150 - 450 [facility] 10e9/L [facility] Diff Method Automated [facility] Method [facility] % Neutrophils 67.4 40 - 75 % [facility] % Lymphocytes 23.8 20 - 48 % [facility] % Monocytes 7.9 0 - 12 % [facility] % Eosinophils 0.7 0 - 6 % [facility] % Basophils 0.2 0 - 2 % [facility] Absolute 5.4 1.6 - 8.3 [facility] Neutrophil 10e9/L [facility] Absolute 1.9 0.8 - 5.3 [facility] Lymphocytes 10e9/L [facility] Absolute 0.6 0.0 - 1.3 [facility] Monocytes 10e9/L [facility] Absolute 0.1 0.0 - 0.7 [facility] Eosinophils 10e9/L [facility] Absolute 0.0 0.0 - 0.2 [facility] Basophils 10e9/L [facility] Specimen Anatomical Collection Method Collection Time Receive d Time (Source) Location / / Volume Laterality 02/11/2012 10:55 02/11/2012 AM CDT 11:04 AM CDT Aime Pablo MD LAB - BLOOD ORDERABLES Performing Organization Address City/State/ZIP Code Phon e Number [facility] [address] documented in this encounter Visit Diagnoses Not on filedocumented in this encounter Care Teams Learning Center Coordinator Relationship Specialty Start Date End Date Cedric Friedman MD PCP - General 05/30/09 02/21/21 [facility] Arsh Schaffer [address] [place] [address] documented as of this encounter
--- OUTSIDE RECORDS SUMMARY | 2022-08-04 08:46 | XMS_ITS | Encounter Summary ---
:1965 Author Organization [place] Address [facility] [place] [address] Care Team Providers Name Role Phone Cedric Friedman MD Primary Care Provider Encounter Details Date Type Department Care Team Description 02/11/2012 Results Only [facility] Aime Pablo MD in [address] [place] [address] [address] [place] [address] [address] [place] [address] [phone] (Wo rk) Social History Tobacco Use Types [...] Name Priority Date/Time Associated Diagnosis Comme nts INR STAT 02/11/2012 10:55 AM Results for this CDT procedure are i n the results section . documented in this encounter Results INR (02/11/2012 10:55 AM CDT) P athologist Signature INR 1.01 0.86 - 1.14 [facility] Specimen Anatomical Collection Method Collection Time Receive d Time (Source) Location / / Volume Laterality 02/11/2012 10:55 02/11/2012 AM CDT 11:04 AM CDT Aime Pablo MD LAB - BLOOD ORDERABLES Performing Organization Address City/State/ZIP Code Phon e Number [facility] [address] documented in this encounter Visit Diagnoses Not on filedocumented in this encounter Care Teams Housekeeping Aid Relationship Specialty Start Date End Date Cedric Friedman MD PCP - General 05/30/09 02/21/21 [facility] [place] [address] [place] [address] documented as of this encounter
--- OUTSIDE RECORDS SUMMARY | 2022-08-04 08:46 | XMS_ITS | Encounter Summary ---
:1965 Author Organization [place] Address [facility] [place] [address] Care Team Providers Name Role Phone Cedric Friedman MD Primary Care Provider Encounter Details Date Type Department Care Team Description 02/11/2012 Results Only [facility] Aime Pablo MD in [facility] [address] [facility] [address] [place] [address] [address] [place] [address] [address] [place] [address] [phone] (Wo rk) Social History Tobacco Use Types [...] Procedure Name Priority Date/Time Associated Comments Diagnosis D DIMER QUANTITATIVE STAT 02/11/2012 10:55 Res ults for this AM CDT procedure are i n the results section. documented in this encounter Results D dimer quantitative (02/11/2012 10:55 AM CDT) P athologist Signature D Dimer 0.2 0.0 - 0.50 [facility] ug/ml [facility] Specimen Anatomical Collection Method Collection Time Receive d Time (Source) Location / / Volume Laterality 02/11/2012 10:55 02/11/2012 AM CDT 11:04 AM CDT Aime Pablo MD LAB - BLOOD ORDERABLES Performing Organization Address City/State/ZIP Code Phon e Number [facility] [place] [facility] [place] [address] documented in this encounter Visit Diagnoses Not on filedocumented in this encounter Care Teams Management Intern Relationship Specialty Start Date End Date Cedric Friedman MD PCP - General 05/30/09 02/21/21 [facility] [place] [address] [place] [address] documented as of this encounter
--- OUTSIDE RECORDS SUMMARY | 2022-08-04 08:46 | XMS_ITS | Encounter Summary ---
:1965 Author Organization [place] Address [facility] [place] [address] Care Team Providers Name Role Phone Cedric Friedman MD Primary Care Provider Reason for Visit Reason Onset Date Comments Triage 02/11/2012 chest pain Encounter Details Date Type Department Care Team Description 02/11/2012 Telephone [facility] Zaida Martin, Triage (chest pain) in [facility] [place] [address] [place] [address] [place] [address] Social History Tobacco Use Types Packs/Day [...] Telephone Encounter - Zaida Martin RN - 02/11/2012 10:07 AM CDT TELEPHONE TRIAGE ENCOUNTER FORM Date: 02/11/2012 PCP: Cedric Friedman MD, MD Patient Name: Sil Power Gender: female : 1965 Age: [age] year old Time: 10:02 AM Phone Numbers: [phone] (home) Pharmacy: [facility] [place] ASSESSMENT Presenting Problem: a few minutes ago, I had a stabbing pain in my right chest, under my right breast and toward the center, it made me feel nauseated, then my right shoulder hurt Into my right arm Subjective/objective: pt reports pain lasted a few seconds, but now she is feeling wiped out pt also reporting recent ER visit in [place] last week for a very bad headache where her blood pressure was 187/94. Pt was told to obtain a neurology consult upon arrival at home. Onset: sudden Duration: 2 seconds Associated Sx: No fever noted. chest pain and fatigue Problem list reviewed: YES Recent History: Yes - What was it?: see above. Recent Illness: N/A or not addressed Allergies verified: N/A or not addressed Precipitated by: Unknown origin Med list reviewed: YES Alleviated by: symptoms resolved on own, except for 'wiped out feeling' Immunosuppressed:N/A or not addressed Conclusion / Primary Problem: Chest pain episode Protocol(s) Consulted: Telephone Triage Protocols for Nurses. Frank, 2001 - 110 PLAN / INTERVENTION Disposition: Referred to ER - another person to drive Caller verbalizes understanding of disposition? YES Caller agrees to plan? Yes: I don't have anyone to drive me, I just am across the street EVALUATION / FOLLOW-UP Advised finding coworker/ neighbor to drive. She Verbalized understanding of all information discussed. documented in this encounter Plan of Treatment Not on filedocumented as of this encounter Visit Diagnoses Not on filedocumented in this encounter Care Teams Care Management Associate Relationship Specialty Start Date End Date Cedric Friedman MD PCP - General 05/30/09 02/21/21 [facility] [address] [facility] [facility] [address] [place] [address] documented as of this encounter
--- OUTSIDE RECORDS SUMMARY | 2022-08-04 08:46 | XMS_ITS | Encounter Summary ---
:1965 Author Organization [place] Address [facility] [place] [address] Care Team Providers Name Role Phone Cedric Friedman MD Primary Care Provider Reason for Visit Reason Comments PT Discharge Summary vestibular Encounter Details Date Type Department Care Team Description 09/18/2010 [facility] Niru Smart, SOLITARIO PT Discharge Summary Health/Nurse System in [facility] (vestibul ar) Visit Physical Therapy Health System in [address] [place] [address] [place], [place] [phone] Social History Tobacco Use Types Packs/Day Years [...] documented as of this encounter Progress Notes Niru Smart - 11/20/2010 1:22 PM CST PHYSICAL THERAPY SUMMATION OF EPISODE OF CARE - 1X ONLY Patient Name: Sil Power : 1965 Dates of Service: 09/18/10 Number of Visits: 1 Physical/Functional Status at Last Visit / Patient Contact: The patient failed to attend or schedule additional visits as indicated in the plan of care established at their initial evaluation. Their current physical / functional status is unknown. Efforts to contact the patient have been unsuccessful. Skilled Interventions: neuromuscular reeducation including canalith repositioning and education in self care / home management training to include instruction in: symptom control techniques Goals: Assesment of improvement, and extent of progress toward each goal in the current Plan of Care. Independent and safe with home exercise / self care program in 1-4 week(s). unknown Transfer from chair and bed without increased pain or symptoms in 1-4 week(s). unknown Ambulation without increased pain or symptoms for community distances on flat surfaces in 1-4 week(s). unknown Forward bending 30 minutes to 2.5 hours (occasionally) without increased pain or symptoms in 1-4 week(s). unknown Criteria for Discharge: Patient/client, caregiver, or legal guardian declined to continue intervention. Discharge Plan: Home exercise and self care program. Therapist: Niru Smart, PT Date: 11/20/2010 [facility] SHARPENER documented in this encounter Plan of Treatment Not on filedocumented as of this encounter Visit Diagnoses Not on filedocumented in this encounter Care Teams Flavor Room Worker Relationship Specialty Start Date End Date Cedric Friedman MD PCP - General 05/30/09 02/21/21 [facility] Arsh [address]need[address] [place] [address] [address] [place] [address] documented as of this encounter
--- OUTSIDE RECORDS SUMMARY | 2022-08-04 08:46 | XMS_ITS | Encounter Summary ---
:1965 Author Organization [place] Address [address] [facility] [place] [address] Care Team Providers Name Role Phone Cedric Friedman MD Primary Care Provider Reason for Referral - Closed Specialty Diagnoses / Procedures Referred By Contact Refer red To Contact Diagnoses Headache(784.0) Cedric Friedman MD [facility] [address] [place] [address] Referral ID Status Reason Start Date Expiration Date Visits Requ ested Visits Authorized [id number] Closed 02/04/2012 08/02/2012 1 1 - Closed Specialty Diagnoses / Procedures Referred By Contact Refer red To Contact Diagnoses Headache(784.0) Cedric Friedman MD [facility] [address] [place] [address] Referral ID Status Reason Start Date Expiration Date Visits Requ ested Visits Authorized [id number] Closed 02/04/2012 08/02/2012 1 1 Reason for Visit Reason Onset Date Comments Orders 02/04/2012 referrral to a Neuro logist Encounter Details Date Type Department Care Team Description 02/04/2012 Telephone [facility] Cedric Friedman, Order s (referrral to a System in [place] Neurologist) Family Practice [facility] [employer] [place] [address] [place] [phone] [address] [place] [address] Social History Tobacco Use Types [...] this encounter Miscellaneous Notes Telephone Encounter - Cristian Carter - 02/05/2012 2:18 PM CDT Patient has appointment scheduled with Dr. Gagnon at the [facility] on 02/26/12. Telephone Encounter - Cristian Carter - 02/05/2012 11:01 AM CDT First available here in [place] 05/05/12. LM for Elissa to find out first available at [facility]. Telephone Encounter - Cedric Friedman MD - 02/04/2012 5:03 PM CDT Referral to Neurology was placed. Please assist in scheduling. Telephone Encounter - Micaela Mckeon - 02/04/2012 4:39 PM CDT Situation/What is the patient???s concern/need: Patient calling in regards to head pain she was having on her way back from [place]. Clinical Background/Recent Intervention: She states she was seen in a ER in [facility] for shooting pains in her head and was told she should get a referral to a neurologist. She states she said the DRKathi said she has a inflammed nerve on the side of her head. She was given Fiorinol for the pain. She also states that she only has 6 pills left and is concerned she will run out before she can see the specialist. She will be back in town on Thursday. Recommendation/Patient Request: She is requesting a referral to be placed for a Neurologist here or at the [place] [facility] wherever she can getin the fastest. She would like a call when this has been done and to help her schedule a appt as soon as possible. Best number(s) to reach patient: [phone] documented in this encounter Plan of Treatment Pending Results Name Type Priority Associated Diagnoses Date/Ti pr NEUROLOGY ADULT REFERRAL Referral Routine Headache documented as of this encounter Visit Diagnoses Diagnosis Headache(784.0) - Primary Headache documented in this encounter Care Teams Rn Occupational Relationship Specialty Start Date End Date Cedric Friedman MD PCP - General 05/30/09 02/21/21 [facility] [address] [facility] [address] [place] [address] documented as of this encounter
--- OUTSIDE RECORDS SUMMARY | 2022-08-04 08:46 | XMS_ITS | Encounter Summary ---
:1965 Author Organization [place] Address [address] [place] [address] Care Team Providers Name Role Phone Cedric Friedman MD Primary Care Provider Reason for Visit Reason Comments ER F/U Seen in ED,02/11/2012./Chest wall and right shoulder pain,Anxiety related. Depression Refill Request Encounter Details Date Type Department Care Team Description 02/12/[address] [facility] Cedric Friedman, JESSICA ( generalised anxiety disorder) (Primary Dx); System in [place] Villatoro MD Other screening mammogram; Family Practice [facility] [place] Screening for depression; [address] [place] [address] Thyroiditis; [place] [address] Hypothyroidism; [phone] [place] Mixed hyperlipidemia; [phone] [address] Moderate major depression (H); [phone] Diabetes [facility], type 2 (H) (Work) Social History Tobacco Use Types Packs/Day Years [...] Sign Reading Time Taken Comments Blood Pressure 120/70 02/12/2012 2:54 PM CDT Pulse 80 02/12/2012 2:54 PM CDT Temperature 36.3 ??C (97.4 ??F) 02/12/2012 2:54 PM CDT Respiratory Rate - - Oxygen Saturation - - Inhaled Oxygen Concentration - - Weight 74.6 kg (164 lb 7 oz) 02/12/2012 2:54 PM CDT Height 167.6 cm (5' 6) 02/12/2012 2:54 PM CDT Body Mass Index 26.54 02/12/2012 2:54 PM CDT documented in this encounter Progress Notes Cedric Friedman MD - 02/12/2012 3:29 PM CDT Chief Complaint: Chief Complaint Patient presents with ??? ER F/U Seen in ED,02/11/2012./Chest wall and right shoulder pain,Anxiety related. ??? Depression ??? Refill Request JESSICA-7 Over the last 2 weeks, how often have you been bothered by the following problems? Not at all -0 Several days -1 More than half the days-2 Nearly every day -3 1. Feeling nervous, anxious or on edge 3 2. Not being able to stop or control worrying 3 3. Worrying too much about different things 3 4. Trouble relaxing 3 5. Being so restless that it is hard to sit still 0 6. Becoming easily annoyed or irritable 3 7. Feeling afraid as if something awful might happen 1 Total__16__ Cut points for: Severe= 15 The patient complains of worsening depression of moderate severity for over 1 year. The patient describes the symptoms as feeling down. The patient describes modifying or exacerbating factors as: none.The patient has attempted the following treatments: none. The patient denies any other aggravating or alleviating factors or associated symptoms. Today's Depression Rating was 23. DIABETES:The patient has a history of diabetes mellitus of moderate severity and long standing duration with no acute modifying factors. No polyuria, polydipsia, blurry vision, chest pain, dyspnea, dysesthesia or claudication. Follows diet as prescribed, performs home glucose monitoring regularly. Present therapy includes Lantus. Last glyco A1c was A1C 7.6 02/11/2012. Patient Active Problem List Diagnoses Code ??? Diabetes Mellitus, Type 2 250.00BC ??? Hypothyroidism 244.9Y ??? Mixed Hyperlipidemia 272.2 Current outpatient prescriptions Medication Sig ??? levothyroxine (SYNTHROID, LEVOTHROID) 75 MCG tablet [...] tablet by mouth daily (with dinner). ??? LANTUS SOLOSTAR 100 UNIT/ML injection Inject 18 Units Subcutaneous At Bedtime. ??? ORDER FOR DME Glucose monitoring test strips and lancets. ONE TOUCH TEST STRIPS Test 2 times daily. . GRUPO: 99 Insulin dependent: NO Dx Code: 250.00BC Diabetes mellitus, type 2 ??? albuterol (PROVENTIL HFA: VENTOLIN HFA) 108 (90 BASE) MCG/ACT inhaler Inhale 2 puffs into the lungs every 6 hours. ??? cetirizine (ZYRTEC) 10 MG tablet Take 1 tablet by mouth daily. ??? ASPIRIN 81 MG OR TABS ONE DAILY Allergies Allergen Reactions ??? Oxycodone Itching and Difficulty breathing Percocet ??? Phenergan (Promethazine Hcl) Nausea Convulsions; shaking ??? Metformin Diarrhea Review Of Systems (other than mentioned above) Constitutional: negative Psych: as above. Cardiovascular: negative Gastrointestinal: negative PHYSICAL EXAMINATION: Blood pressure 120/70, pulse 80, temperature 97.4 ??F (36.3 ??C), height 1.676 m (5' 6), weight 74.588 kg (164 lb 7 oz), last menstrual period 01/15/2012. General: Patient is well nourished, alert and oriented in no acute distress. Psych: anxious mood and flat affect. Lungs clear to auscultation. Good air movement bilaterally without rales, wheezes, or rhonchi. Cardiac: normal S1 and S2 without any murmur, gallops or rubs. No carotid bruits. No edema or cyanosis. Abdomen: bowel sounds present. Soft and non-tender. No palpable masses or hepatosplenomegaly. ASSESSMENT/PLAN: 1. JESSICA (generalised anxiety disorder) (300.02F) citalopram (CELEXA) 20 MG tablet, ALPRAZolam (XANAX)0.25 MG tablet 2. Other screening mammogram (V76.12) MAMMO SCREENING DIGITAL (BILAT) 3. Screening for depression (V79.0) 4. Thyroiditis (245.9C) levothyroxine (SYNTHROID, LEVOTHROID) 75 MCG tablet 5. Hypothyroidism (244.9Y) levothyroxine (SYNTHROID, LEVOTHROID) 75 MCG tablet 6. Mixed hyperlipidemia (272.2) simvastatin (ZOCOR) 40 MG tablet 7. Moderate major depression (296.22F) citalopram (CELEXA) 20 MG tablet 8. Diabetes mellitus, type 2 (250.00BC) metFORMIN (GLUCOPHAGE-XR) 500 MG 24 hr tablet, LANTUS SOLOSTAR 100 UNIT/ML injection, DISCONTINUED: LANTUS SOLOSTAR 100 UNIT/ML injection Start Celexa 20 mg daily. follow up in 1 month. Depression and anxiety are not controlled. Xanax PRN anxiety Mammogram was ordered. Other meds refilled. Increase Lantus, based on AM blood sugars. documented in this encounter Nursing Notes 02/12/2012 2:55 PM CDT >> RAMBO STARR Shira Feb 12, 2012 2:51 PM Is aware she is due for a mammogram documented in this encounter Plan of Treatment Not on filedocumented as of this encounter Visit Diagnoses Diagnosis JESSICA (generalised anxiety disorder) - Caitie lambert Generalized anxiety disorder Other screening mammogram Screening for depression Thyroiditis Thyroiditis, unspecified Hypothyroidism Unspecified hypothyroidism Mixed hyperlipidemia Moderate major depression (H) Major depressive disorder, single episod e, moderate Diabetes mellitus, type 2 (H) Type II or unspecified type diabetes toir litus without mention of complication, not stated as uncontrolled documented in this encounter Care Teams Director Of Recruiting Relationship Specialty Start Date End Date Cedric Friedman MD PCP - General 05/30/09 02/21/21 [facility] [address] [facility] [address] [place] [address] documented as of this encounter
--- OUTSIDE RECORDS SUMMARY | 2022-08-04 08:46 | XMS_ITS | Encounter Summary ---
:1965 Author Organization [place] Address [facility] [place] [address] Care Team Providers Name Role Phone Cedric Friedman MD Primary Care Provider Reason for Visit Reason Comments Cough comes and goes,wakes her up, gets to the point of gagging,gets dry scratchy throat at time Encounter Details Date Type Department Care Team Description 03/05/2012 Office Visit [facility] Abdifatah Antonio al allergic rhinitis (Primary Dx); System in Arsh Mark MD Diabetes mellitus, type 2 (H); Family Practice [facility] [place] Acute maxillary sinusitis [address] [facility] KWABENA Pineda [address] [address] KWABENA PINEDA [phone] Social History Tobacco Use Types Packs/Day Years [...] Sign Reading Time Taken Comments Blood Pressure 102/62 03/05/2012 10:53 AM CDT Pulse 64 03/05/2012 10:53 AM CDT Temperature 36.8 ??C (98.2 ??F) 03/05/2012 10:53 AM CDT Respiratory Rate - - Oxygen Saturation - - Inhaled Oxygen Concentration - - Weight 73.9 kg (163 lb) 03/05/2012 10:53 AM CDT Height - - Body Mass Index 26.31 02/12/2012 2:54 PM CDT documented in this encounter Progress Notes Abdifatah Antonio MD - 03/10/2012 1:55 PM CDT CLINIC ENCOUNTER SUBJECTIVE: Patient presents today with cough that comes and goes. It is an unusual cough for her. It sometimes wakes her up. It does not bother her all the time, just gets a dry, scratchy throat and then gets this symptom. No production, no chest congestion, shortness of breath, fever, chills. A little bit of runny nose when she has the cough, which is clear, but she does not feel like her allergies are flaring up. Does not feel like bronchitis. Does not feel like reflux. No sinus pressure but that is what I suspect. OBJECTIVE: General: Patient alert and oriented, pleasant and cooperative with exam. No acute distress. Vitals: See nursing note. Nose: Nares with moderate congestion and clear discharge. Oropharynx: Clear. Neck: Supple. Lungs: Clear. ASSESSMENT: Cough, likely secondary to sinusitis. PLAN: Z-Kodi as directed. Follow up if symptoms persist or get worse. Abdifatah Antonio M.D. LUCIO/mm cc: Abdifatah Antonio MD - 03/05/2012 11:33 AM CDT This office note has been dictated. documented in this encounter Plan of Treatment Not on filedocumented as of this encounter Visit Diagnoses Diagnosis Seasonal allergic rhinitis - Primary Allergic rhinitis, cause unspecified Diabetes mellitus, type 2 (H) Type II or unspecified type diabetes tori litus without mention of complication, not stated as uncontrolled Acute maxillary sinusitis documented in this encounter Care Teams Manager Internet Retails Sales Relationship Specialty Start Date End Date Cedric Friedman MD PCP - General 05/30/09 02/21/21 [facility] Arsh Sneed[address] [place] [address] [place] [address] documented as of this encounter
--- OUTSIDE RECORDS SUMMARY | 2022-08-04 08:46 | XMS_ITS | Encounter Summary ---
:1965 Author Organization [place] Address [facility] [place] [address] Care Team Providers Name Role Phone Yvrose Cox MD Primary Care Provider Reason for Referral Consultation (Routine) - Closed Specialty Diagnoses / Procedures Referred By Contact Refer red To Contact INTERNAL MEDICINE - Diagnoses Thyroiditis Hypothyroidism Yvrose Cox MD [facility] ENDOCRINOLOGY, DIABETES & [facility] [address] [facility] METABOLISM / [address] [facility] [address] [place] [address] Referral ID Status Reason Start Date Expiration Date Visits V isits Requested Authorized [id number] Closed Service Not 09/23/2011 03/21/2012 1 1 Available at Clinic TH CARE MARKETING SPECIALIST Reason for Visit Reason Comments Thyroid Problem Tyroidoiditis/lab results, Encounter Details Date Type Department Care Team Description 09/23/2011 Office Visit [facility] Yvrose Cox Diabe carolann mellitus, type 2 (H) (Primary Dx); System in Arsh Villatoro MD Thyroiditis; Family Practice [facility] Hypothyroidism [address] [place] [address] [place], [place] [address] [address] [place] [place] [phone] Social History Tobacco Use Types Packs/Day Years [...] Sign Reading Time Taken Comments Blood Pressure 100/60 09/23/2011 2:23 PM HEALTH CARE MARKETING SPECIALIST Pulse 80 09/23/2011 2:23 PM HEALTH CARE MARKETING SPECIALIST Temperature 36.2 ??C (97.2 ??F) 09/23/2011 2:23 PM HEALTH CARE MARKETING SPECIALIST Respiratory Rate - - Oxygen Saturation - - Inhaled Oxygen Concentration - - Weight 78.5 kg (173 lb) 09/23/2011 2:23 PM HEALTH CARE MARKETING SPECIALIST Height - - Body Mass Index 28.57 02/20/2011 11:13 AM CDT documented in this encounter Progress Notes Yvrose Cox MD - 09/23/2011 3:04 PM CST Chief Complaint: Chief Complaint Patient presents with ??? Thyroid Problem Tyroidoiditis/lab results,09/18/2011 DIABETES:The patient has a history of diabetes mellitus of moderate severity and long standing duration with no acute modifying factors. No polyuria, polydipsia, blurry vision, chest pain, dyspnea, dysesthesia or claudication. Follows diet as prescribed, performs home glucose monitoring regularly. Present therapy includes Glyburide. Patient reports blood sugars have been ranging between 79 and well ov er 200. Last glyco A1c was A1C 9.1 09/12/2011. HYPOTHYROIDISM: The patient has a history of hypothyroidism of moderate severity and long standing duration. The patient is presently taking medication and reports symptoms of fatigue and she can't lose weight and she has neck sweating. She denies palpitations, heat or cold intolerance, weight gain ofloss, or change in bowl habits. Patient denies any modifying factors. Last TSH: TSH 2.89 09/12/2011. Patient Active Problem List Diagnoses Code ??? Diabetes Mellitus, Type 2 250.00BC ??? Hypothyroidism 244.9Y ??? Mixed Hyperlipidemia 272.2 Outpatient prescriptions marked as taking for the 09/23/11 encounter (Office Visit) with YVROSE COX: levothyroxine (SYNTHROID, LEVOTHROID) 75 MCG tablet Take 1 tablet by mouth daily. Disp: 90 tablet Rfl: 1 simvastatin (ZOCOR) 40 MG tablet Take 1 tablet by mouth At Bedtime. Disp: 90 tablet Rfl: 1 levothyroxine (SYNTHROID) 50 MCG tablet Take 1 tablet by mouth daily. Disp: 90 tablet Rfl: 1 glyBURIDE (DIABETA / MICRONASE) 5 MG tablet Take 1 tablet by mouth 2 times daily (with meals). Disp:180 tablet Rfl: 1 ORDER FOR DME Glucose monitoring test strips and lancets. ONE TOUCH TEST STRIPS Test 2 times daily. . GRUPO: 99Insulin dependent: NODx Code: 250.00BC Diabetes mellitus, type 2 Disp: 100 each Rfl: 5 albuterol (PROVENTIL HFA: VENTOLIN HFA) 108 (90 BASE) MCG/ACT inhaler Inhale 2 puffs into the lungs every 6 hours. Disp: 1 Inhaler Rfl: 2 cetirizine (ZYRTEC) 10 MG tablet Take 1 tablet by mouth daily. Disp: 30 tablet Rfl: 12 ASPIRIN 81 MG OR TABS ONE DAILY Disp: 100 Rfl: 3 Allergies Allergen Reactions ??? Oxycodone Itching and Difficulty breathing Percocet ??? Phenergan (Promethazine Hcl) Nausea Convulsions; shaking ??? Metformin Diarrhea Review Of Systems (other than mentioned above) Constitutional: negative Ears/Nose/Throat: negative Respiratory: negative Cardiovascular: negative Gastrointestinal: negative PHYSICAL EXAMINATION: Blood pressure 100/60, pulse 80, temperature 97.2 ??F (36.2 ??C), weight 78.472 kg (173 lb), last menstrual period 09/14/2011. General: Patient is well nourished, alert and oriented in no acute distress. Normal mood and affect. No other exam was done today. Results for orders placed in visit on 09/18/11 THYROID PEROXIDASE ANTIBODY Component Value Range ? ? Thyroid Peroxidase Antibody 1117 (*) > <35 (IU/mL) A1C 9.1 09/12/2011 TSH 2.89 09/12/2011 ASSESSMENT/PLAN: 1. Diabetes mellitus, type 2 (250.00BC) 2. Thyroiditis (245.9C) ENDOCRINOLOGY ADULT REFERRAL, levothyroxine (SYNTHROID, LEVOTHROID) 75 MCG tablet, TSH with free T4 reflex 3. Hypothyroidism (244.9Y) ENDOCRINOLOGY ADULT REFERRAL, levothyroxine (SYNTHROID, LEVOTHROID) 75 MCG tablet, TSH with free T4 reflex Referral to Endocrinology. Increase levothyroxine to 75 mcg daily. Recheck TSH in 8 weeks. Continue Glipizide for diabetes mellitus. Continue weight loss and exercise. She declines any insulin. She had side effects with Metformin. TH CARE MARKETING SPECIALIST documented in this encounter Plan of Treatment Not on filedocumented as of this encounter Procedures Procedure Name Priority Date/Time Associated Diagnosis Comme nts ADULT ENDOCRINOLOGY Routine 09/25/2011 Thyroiditis Results for this SCRAP PREPARATION SUPERVISOR REFERRAL Hypothyroidism procedu re are in the results section . documented in this encounter Results ENDOCRINOLOGY ADULT REFERRAL (09/25/2011) Narrative Elissa Cheema (Rw) - 09/25/2011 Thank you for placing your trust in [facility]. We welcome the opportunity to be of service to your pat ient. We are pleased to confirm an appointment as follows: Patient Name: Sil Power Date: 10/23/2011 Time: 7:30 a.m. Location: [place] [address] Department: Endocrinology Provider: Dr. Avelar or Dr. Lang Med doc sent. ??da Yvrose Cox MD REFERRAL documented in this encounter Visit Diagnoses Diagnosis Diabetes mellitus, type 2 (H) - Primary Type II or unspecified type diabetes tori litus without mention of complication, not stated as uncontrolled Thyroiditis Thyroiditis, unspecified Hypothyroidism Unspecified hypothyroidism documented in this encounter Care Teams Logistics Coordinator Relationship Specialty Start Date End Date Yvrose Cox MD PCP - General 05/30/09 02/21/21 [facility] [address] [facility] [address] [place] [address] documented as of this encounter
--- OUTSIDE RECORDS SUMMARY | 2022-08-04 08:46 | XMS_ITS | Encounter Summary ---
:1965 Author Organization [place] Address [address] [place] [address]. [place] [address] Care Team Providers Name Role Phone Cedric Friedman MD Primary Care Provider Reason for Referral - Closed Specialty Diagnoses / Procedures Referred By Contact Refer red To Contact Diagnoses Diabetes mellitus, type 2 (H) Norma Beasley DO [facility] [address] [place] [address] Referral ID Status Reason Start Date Expiration Date Visits Requ ested Visits Authorized [id number] Closed 10/23/2010 10/23/2010 1 1 LIBRARIAN Reason for Visit Reason Comments Sinus Problem cough, nasal drainage, heada angeli x 3 days Encounter Details Date Type Department Care Team Description 10/23/2010 Office Visit [facility] Norma Beasley Acut e bronchitis (Primary Dx); System in [place] DO Leilani Diabetes mellitus, type 2 (H) Family Practice [facility] [address] [place], [place] [address] [address] [place] [address] [phone] Social History Tobacco Use Types Packs/Day Years [...] Sign Reading Time Taken Comments Blood Pressure 112/74 10/23/2010 3:03 PM CAD LIBRARIAN Pulse 72 10/23/2010 3:03 PM CAD LIBRARIAN Temperature 36.4 ??C (97.5 ??F) 10/23/2010 3:03 PM CAD LIBRARIAN Respiratory Rate - - Oxygen Saturation - - Inhaled Oxygen Concentration - - Weight 79.4 kg (175 lb 1.6 oz) 10/23/2010 3:03 PM CAD LIBRARIAN Height - - Body Mass Index 28.48 01/28/2010 9:50 AM CDT documented in this encounter Progress Notes Norma Beasley, - 10/23/2010 3:29 PM CST SUBJECTIVE: Sil Power 44 year old female who complains of fever, facial pressure/pain, headache, nasal blockage, nasal congestion, post nasal drip and dry cough of moderate severity persisting for 3 days without modifying factors. She denies other contributing symtoms on ROS of eyes, ENT, Resp, CV or GI. Medications reviewed. OBJECTIVE: Blood pressure 112/74, pulse 72, temperature 97.5 ??F (36.4 ??C), temperature source Temporal, weight 79.425 kg (175 lb 1.6 oz), last menstrual period 10/05/2010. The patients general appearance is well nourished well developed without apparent distress. Patientexhibits normal mood, affect, judgment, insight and orientation during conversation. Eyes with normal lids, conjunctiva, pupils and irises. External ears nose are within normal limits. Normal lips teeth and gums. neck is grossly normal without obvious thyroid abnormality. Skin is without cyanosis and of normal color. No focal neurological deficits noted on gross inspection. Respiratory effort is relaxed without gross wheezing. ASSESSMENT: 1. Acute bronchitis (466.0) azithromycin (ZITHROMAX) 250 MG tablet 2. 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
--- OUTSIDE RECORDS SUMMARY | 2022-08-04 08:46 | XMS_ITS | Encounter Summary ---
:1965 Author Organization [place] Address [facility] [place] [address] Care Team Providers Name Role Phone Cedric Cox MD Primary Care Provider Reason for Visit Reason Comments Physical annual exam, Left Message To Call 02/17/11 Encounter Details Date Type Department Care Team Description 02/20/2011 Office Visit [facility] Cedric Cox, Manny spain general medical examination at a health care facility (Primary Dx); System in Arsh Villatoro MD Mixed hyperlipidemia; Family Practice [facility] Arsh Villatoro Hypothyroidism; [address] Diabetes mellitus, type 2 (H ); KWABENA Pineda [address] Tinea versicolor [address] KWABENA PINEDA [phone] Social History Tobacco Use Types Packs/Day Years [...] Sign Reading Time Taken Comments Blood Pressure 124/80 02/20/2011 11:13 AM CDT Pulse 68 02/20/2011 11:13 AM CDT Temperature 36.7 ??C (98 ??F) 02/20/2011 11:13 AM CDT Respiratory Rate - - Oxygen Saturation - - Inhaled Oxygen Concentration - - Weight 77.6 kg (171 lb 1.6 oz) 02/20/2011 11:13 AM CDT Height 165.7 cm (5' 5.25) 02/20/2011 11:13 AM CDT Body Mass Index 28.25 02/20/2011 11:13 AM CDT documented in this encounter Progress Notes Cedric Cox MD - 02/20/2011 11:19 AM CDT CC: Joce Power is an 45 year old woman who presents for preventive health visit. Besides routine health maintenance, she would like to discuss diabetes. Healthy Habits: Do you get at least three servings of calcium containing foods daily (dairy, green leafy vegetables,etc.)? yes Outside of work or daily activities, how many days per week do you exercise for 30 minutes or longer? none Have you had an eye exam in the past two years? yes Do you see a dentist twice per year? yes Patient is also in need of diabetic follow up. Diabetes concerns: has not been taking diabetic meds Patient glucose self monitoring: rarely. Blood glucose averages: 14 day-unsure, 30 day- unsure Symptoms of low blood sugar/hypoglycemia (nausea, shakey, sweaty, dizzy...)? no Problems taking medications regularly? no Side effects? unsure BP Readings from Last 3 Encounters: 02/20/11 124/80 10/23/10 112/74 09/18/10 120/72 A1C 7.9 02/06/2011 A1C 8.0 07/30/2010 A1C 7.1 10/04/2009 Recent Labs Lab Test 02/06/11 0747 07/30/10 0751 ??? CHOL 255* 186 ??? HDL 63 49* ??? LDL 139* 85 ??? TRIG 268* 259* ??? CHOLHDLRATIO 4.0 3.8 Wt Readings from Last 3 Encounters: 02/20/11 77.61 kg (171 lb 1.6 oz) 10/23/10 79.425 kg (175 lb 1.6 oz) 09/18/10 78.155 kg (172 lb 4.8 oz) Staff Signature Cristin Vaughan PHQ-2 Over the last two weeks- Have you been bothered by little interest or pleasure in doing things? No Over the last two weeks- Have you been feeling down, depressed, or hopeless? No Abuse: Current or Past(Physical, Sexual or Emotional)- No Do you feel safe in your environment - Yes History Substance Use Topics ??? Smoking status: Never Smoker ??? Smokeless tobacco: Never Used ??? Alcohol Use: Yes social The patient does not drink >3 drinks per day nor >7 drinks per week. Reviewed orders with patient. Reviewed health maintenance and updated orders accordingly - Yes Staff Signature Cristin Vaughan Chief Complaint Patient presents with ??? Physical annual exam, ??? Left Message To Call 02/17/11 S: Joce is a 45 year old female presenting for routine physical examination. PMH: Patient Active Problem List Diagnoses Code ??? Diabetes Mellitus, Type 2 250.00BC ??? Hypothyroidism 244.9Y ??? Mixed Hyperlipidemia 272.2 Past Medical History Diagnosis Date ??? Hypothyroidism 2008 ??? Diabetes mellitus 2004 ??? Hyperlipidemia 2008 PSH: Past Surgical History Procedure Date ??? C c-sec+ care,prev c-sec X2- 1986 and 2006 MEDS: Outpatient prescriptions marked as taking for the 02/20/11 encounter (Office Visit) with CASSIDY COX.: simvastatin (ZOCOR) 40 MG tablet Take 1 tablet by mouth At Bedtime. at bedtime. Disp: 30 tablet Rfl:0 levothyroxine (SYNTHROID) 50 MCG tablet Take 1 tablet by mouth daily. Disp: 30 tablet Rfl: 0 glyBURIDE (DIABETA / MICRONASE) 5 MG tablet take 1 Tab by mouth daily (with breakfast). One a day x 1 week, then one twice a day with meals Disp: 90 Tab Rfl: 1 KETOCONAZOLE 2 % EX CREA APPLY TO AFFECTED AREA TWICE DAILY Disp: 1 Tube Rfl: 2 PROAIR HFA 108 (90 BASE) MCG/ACT IN AERS INHALE 1 TO 2 PUFFS EVERY 4 TO 6 HOURS NEEDED Disp: 1 Inhaler Rfl: 12 ONE TOUCH TEST STRIPS TEST TEST 2 TIMES A DAY Disp: 1 Package Rfl: 12 ASPIRIN 81 MG OR TABS ONE DAILY Disp: 100 Rfl: 3 Allergies: Oxycodone, Phenergan and Metformin SOCIAL HISTORY: History Substance Use Topics ??? Smoking status: Never Smoker ??? Smokeless tobacco: Never Used ??? Alcohol Use: Yes social FAMILY HISTORY: Family History Problem Relation Age of Onset ??? Hypertension Mother ??? Stroke Maternal Grandmother Health Care Maintanence: Reviewed. Review of Systems: Constitutional: negative Eyes: negative ENT: negative Resp: negative CV: negative GI: negative : negative Musc-Skel: negative Skin: negative Hem/Lymph: negative Neuro: negative Endo: negative Psych: negative O: Vitals: Blood pressure 124/80, pulse 68, temperature 98 ??F (36.7 ??C), temperature source Temporal, height 1.657 m (5' 5.25), weight 77.61 kg (171 lb 1.6 oz), last menstrual period 01/28/2011. General: Patient is well nourished, alert and oriented in no acute distress. Normal mood and affect. Eyes are normal. PERRLA, corneas and conjunctivae normal. Fundi are normal, no papilledema, hemorrhages or exudates. No AV crossing changes. Normal fundoscopic exam. Ears: normal tympanic membranes and extra-auditory canals. Throat: normal mucosa without any lesions or [...] and non-tender. No palpable masses or hepatosplenomegaly. Lymphatics: no cervical or inguinal lymphadenopathy noted. Neurologic: cranial nerves 2-12 grossly intact. 2+ deep tendon reflexes. No focal deficits noted. Breast exam: Nipples everted., No visible masses or suspicious skin changes noted., No discrete or dominant masses noted to palpation. and No axillary adenopathy noted. Pelvic exam: External genitalia and vagina normal. Bimanual exam normal., Pap smear obtained. Labs: Results for orders placed in visit on 02/06/11 A.M.A. LIPID PANEL Component Value Range ??? Cholesterol 255 (*) 0 - 200 (mg/dL) ??? Triglycerides 268 (*) 0 - 150 (mg/dL) ??? HDL Cholesterol 63 50 - 110 (mg/dL) ??? LDL Cholesterol Calculated 139 (*) 0 - 129 (mg/dL) ??? VLDL-Cholesterol 54 (*) 0 - 30 (mg/dL) ??? Cholesterol/HDL Ratio 4.0 0.0 - 5.0 ALANINE AMINO (ALT) (SGPT) Component Value Range ??? ALT 76 (*) 0 - 50 (U/L) A.M.A. BASIC METABOLIC PANEL Component Value Range ??? Sodium 142 133 - 144 (mmol/L) ??? Potassium 4.3 3.4 - 5.3 (mmol/L) ??? Chloride 103 94 - 109 (mmol/L) ??? Carbon Dioxide 29 20 - 32 (mmol/L) ??? Anion Gap 10 6 - 17 (mmol/L) ??? Glucose 173 (*) 60 - 99 (mg/dL) ??? Urea Nitrogen 13 5 - 24 (mg/dL) ??? Creatinine 0.77 0.52 - 1.04 (mg/dL) ? ? GFR Estimate 81 > >60 (mL/min/1.7m2) ? ? GFR Estimate If Black >90 > >60 (mL/min/1.7m2) ??? Calcium 10.1 8.5 - 10.4 (mg/dL) HEMOGLOBIN A1C Component Value Range ??? Hemoglobin A1C 7.9 (*) 4.3 - 6.0 (%) MICROALBUMIN (INC URINE CREAT) Component Value Range ??? Creatinine Urine 147 (mg/dL) ??? Microalbumin Urine 31 (mg/L) ??? Microalbumin mg/g Cr 21.09 (*) 0 - 20 (mg/g Cr) TSH W/FREE T4 REFLEX Component Value Range ??? TSH 2.85 0.4 - 5.0 (mU/L) A: 1. Routine general medical examination at a health care facility (V70.0) PAP IMAGED THIN LAYER SCREEN 2. Mixed hyperlipidemia (272.2) simvastatin (ZOCOR) 40 MG tablet 3. Hypothyroidism (244.9Y) levothyroxine (SYNTHROID) 50 MCG tablet 4. Diabetes mellitus, type 2 (250.00BC) glyBURIDE (DIABETA / MICRONASE) 5 MG tablet 5. Tinea versicolor (111.0B) ketoconazole (NIZORAL) 2 % cream Discussed labs. Take SIMVASTATIN at night. Start taking Glyburide. All age and sex appropriate health maintenance preventative issues were discussed today. follow up in 3 months with labs prior. Body mass index is 28.25 kg/(m^2). Weight Management Counseling provided which consisted of: exercise and nutrition documented in this encounter Plan of Treatment Not on filedocumented as of this encounter Procedures Procedure Name Priority Date/Time Associated Diagnosis Comme nts C FOOT EXAM Routine 02/20/2011 1:51 PM Diabetes mellitus, CDT type 2 (H) PAP IMAGED THIN Routine 02/20/2011 12:00 AM Routine general Re sults for this LAYER SCREEN CDT medical examination procedur e are in at a health care the results facility section. documented in this encounter Results PAP IMAGED THIN LAYER SCREEN (02/20/2011 12:00 AM CDT) Component Value Ref Test Analysis Performed At [facility] Range Method Time Signature PAP NIL COPATH Copath Report COPATH Patient Name: JOCE POWER MR#: [id number] Specimen #: [id number] Collected: 02/20/2011 Received: 02/21/2011 Reported: 02/24/2011 15:21 Ordering Phy(s): CEDRIC COX SPECIMEN/STAIN PROCESS: Pap imaged thin layer prep screening (Surepath, FocalPoint w ith guided screening) ? Pap-Cyto x 1, Reflex HPV x 1 SOURCE: Cervical, endocervical ---- Pap imaged thin layer prep screening (Surepath, FocalPoint with guided screening) SPECIMEN ADEQUACY: Satisfactory for evaluation. -Transformation zone component absent. CYTOLOGIC INTERPRETATION: Negative for Intraepithelial Lesion or Malignancy Electronically signed out by: JEFF Campos ( ASCP) Processed and screened at [facility] CLINICAL HISTORY: LMP: 01/28/11 Previous normal pap Date of Last Pap: 01/28/10, Papanicolaou Test Limitations: ??Cervical cytology is a scre ening test with limited sensitivity; regular screening is critical for cancer prevention; Pap tests are primarily effective for the diagnosis/prevention of squamous cell carcinoma, not adenoca rcinomas or other cancers. TESTING LAB LOCATION: [address] [place] [address] COLLECTION SITE: Client: ??[facility] Location: [facility] () Specimen (Source) Anatomical Collection Method Collection Time Re ceived Time Location / / Volume Laterality Cytologic 02/20/2011 02/21/2011 1:46 material PM CDT (specimen) Cedrci Cox MD LAB - OPTIME CLINICAL SPECIM EN Performing Organization Address City/State/ZIP Code Phon e Number COPATH documented in this encounter Visit Diagnoses Diagnosis Routine general medical examination at a health care facility - Primary Mixed hyperlipidemia Hypothyroidism Unspecified hypothyroidism Diabetes mellitus, type 2 (H) Type II or unspecified type diabetes tori litus without mention of complication, not stated as uncontrolled Tinea versicolor Pityriasis versicolor documented in this encounter Care Teams Legal Services Manager Relationship Specialty Start Date End Date Cedric Cox MD PCP - General 05/30/09 02/21/[address] [place] [address] documented as of this encounter
--- OUTSIDE RECORDS SUMMARY | 2022-08-04 08:46 | XMS_ITS | Encounter Summary ---
:1965 Author Organization [place] Address [facility] [place] [address] Care Team Providers Name Role Phone Cedric Friedman MD Primary Care Provider Encounter Details Date Type Department Care Team Description 02/11/2012 Results Only [facility] Aime Pablo MD in [facility] [address] [facility] [address] [place] [address] [address] [place] [address] [address] [place] [address] [phone] (Wo rk) Social History Tobacco Use Types [...] Name Priority Date/Time Associated Diagnosis Comme nts PHOSPHORUS STAT 02/11/2012 10:55 AM Results for this CDT procedure are i n the results section . documented in this encounter Results Phosphorus (02/11/2012 10:55 AM CDT) P athologist Signature Phosphorus 4.1 2.5 - 4.5 [place] mg/dL [facility] Specimen Anatomical Collection Method Collection Time Receive d Time (Source) Location / / Volume Laterality 02/11/2012 10:55 02/11/2012 AM CDT 11:04 AM CDT Aime Pablo MD LAB - BLOOD ORDERABLES Performing Organization Address City/State/ZIP Code Phon e Number [facility] [place] [facility] [place] [facility] [address] documented in this encounter Visit Diagnoses Not on filedocumented in this encounter Care Teams Station Captain Relationship Specialty Start Date End Date Cedric Friedman MD PCP - General 05/30/09 02/21/21 [facility] [place] [address] [place] [address] documented as of this encounter
--- OUTSIDE RECORDS SUMMARY | 2022-08-04 08:46 | XMS_ITS | Encounter Summary ---
:1965 Author Organization [place] Address [facility] [place] [address] Care Team Providers Name Role Phone Cedric Friedman MD Primary Care Provider Sushma Jamison MD Primary Care Provider Unavailable Encounter Details Date Type Department Care Team Description 02/11/2012 [facility] in [place] Aime tracy MD [facility] [address] [place] [address] [place] [address] [address] [place] [address] [phone] (Wo rk) Social History Tobacco Use Types [...] on filedocumented in this encounter Care Teams Chair Lift Operator Relationship Specialty Start Date End Date Cedric Friedman MD PCP - General 05/30/09 02/21/21 [facility] [address] [place] [address] Sushma Jamison MD PCP - General Family Medicine 02/22/21 [address] [place] [address] documented as of this encounter
--- OUTSIDE RECORDS SUMMARY | 2022-08-04 08:46 | XMS_ITS | Encounter Summary ---
:1965 Author Organization [place] Address [facility] [place] [address] Care Team Providers Name Role Phone Cedric Friedman MD Primary Care Provider Sushma Jamison MD Primary Care Provider Unavailable Encounter Details Date Type Department Care Team Description 09/18/2010 [facility] in Norma Reese, [facility] [address] [place] [address] [place] [address] [address] [place] [address] [phone] (Wo rk) Social History Tobacco Use Types [...] on filedocumented in this encounter Care Teams Quartz Miner Blasting Relationship Specialty Start Date End Date Cedric Friedman MD PCP - General 05/30/09 02/21/21 [facility] [address] [place] [address] Sushma Jamison MD PCP - General Family Medicine 02/22/21 [address] [place] [address] documented as of this encounter
--- OUTSIDE RECORDS SUMMARY | 2022-08-04 08:46 | XMS_ITS | Encounter Summary ---
:1965 Author Organization [place] Address [facility] [place] [address] Care Team Providers Name Role Phone Cedric Friedman MD Primary Care Provider Encounter Details Date Type Department Care Team Description 02/11/[address] [facility] Aime Pablo MD in [facility] 701 [facility] [address] [place] [address] [address] [place] [address] [address] [place] [address] [phone] (Wo rk) Social History Tobacco Use Types [...] Procedure Name Priority Date/Time Associated Comments Diagnosis COMPREHENSIVE STAT 02/11/2012 10:55 Results fo r this METABOLIC PANEL AM CDT procedure ar e in the results section. documented in this encounter Results (ABNORMAL) Comprehensive metabolic panel (02/11/2012 10:55 AM CDT) Analysis Performed At Patho logist Time Signature Sodium 143 133 - 144 [place] mmol/L [facility] Potassium 4.9 3.4 - 5.3 [facility] mmol/L [facility] Chloride 105 94 - 109 [facility] mmol/L [facility] Carbon Dioxide 27 20 - 32 [facility] mmol/L [facility] Anion Gap 11 6 - 17 [facility] mmol/L [facility] Glucose 117 (H) 60 - 99 [facility] mg/dL [facility] Urea Nitrogen 16 5 - 24 [facility] mg/dL [facility] Creatinine 0.80 0.52 - [facility] 1.04 mg/dL [facility] GFR Estimate 78 >60 [facility] mL/min/1.7 [facility] m2 GFR Estimate If >90 >60 [facility] Black mL/min/1.7 [facility] m2 Calcium 10.1 8.5 - 10.4 [facility] mg/dL [facility] Bilirubin Total 0.4 0.2 - 1.3 [facility] mg/dL [facility] Albumin 5.0 3.9 - 5.1 [facility] g/dL [facility] Protein Total 8.4 6.8 - 8.8 [facility] g/dL [facility] Alkaline 116 40 - 150 [facility] Phosphatase U/L [facility] ALT 64 (H) 0 - 50 U/L [facility] AST 58 (H) 0 - 45 U/L [facility] Specimen Anatomical Collection Method Collection Time Receive d Time (Source) Location / / Volume Laterality 02/11/2012 10:55 02/11/2012 AM CDT 11:04 AM CDT Aime Pablo MD LAB - BLOOD ORDERABLES Performing Organization Address City/State/ZIP Code Phon e Number [facility] [facility] [address] documented in this encounter Visit Diagnoses Not on filedocumented in this encounter Care Teams Piece Worker Relationship Specialty Start Date End Date Cedric Friedman MD PCP - General 05/30/09 02/21/21 [facility] [place] [address] [place] [address] documented as of this encounter
--- OUTSIDE RECORDS SUMMARY | 2022-08-04 08:46 | XMS_ITS | Encounter Summary ---
:1965 Author Organization [place] Address [facility]0 [facility] [place] [address] Care Team Providers Name Role Phone Cedric Friedman MD Primary Care Provider Reason for Visit Reason Onset Date Comments Triage 09/11/2011 sxs/ lab order Encounter Details Date Type Department Care Team Description 09/11/2011 Telephone [facility] Cedric Friedman Triag e (sxs/ lab order) System in Arsh Schaffer MD Family Practice [facility] [address] [place] [address] [place] [address] [place], [place] [address] Social History Tobacco Use [...] Miscellaneous Notes Telephone Encounter - Zaida Martin - 09/11/2011 4:02 PM CDT Pt calling to report sxs of feeling exhausted, decreased energy, constant yawning, neck sweating, stable weight.and a discoloration of a neck crease. Pt also requesting an add-on lab to future labs foranti TPO my aunt has this condition and my parents want for me to be checked for it TPO added onto labs. Transferred to scheduling for a future lab appt And future appt with PCP/ or team provider per verbal order/ read back DR Friedman / Zaida Martin RN - ok to add on antiTPO Telephone Encounter - Katherin Quintero - 09/11/2011 2:03 PM CDT Please call pt re: Thyroid symptoms. She can be reached at [phone], ok to lm. documented in this encounter Plan of Treatment Not on filedocumented as of this encounter Visit Diagnoses Diagnosis Hypothyroidism - Primary Unspecified hypothyroidism documented in this encounter Care Teams Contract Associate Relationship Specialty Start Date End Date Cedric Friedman MD PCP - General 05/30/09 02/21/21 [facility] [place] [address] [facility] [address] [place] [address] documented as of this encounter
--- OUTSIDE RECORDS SUMMARY | 2022-08-04 08:46 | XMS_ITS | Encounter Summary ---
:1965 Author Organization [place] Address [address] [facility] [place] [address] Care Team Providers Name Role Phone Cedric Friedman MD Primary Care Provider Reason for Visit Reason Onset Date Comments Refill Request 01/13/2011 synthroid Encounter Details Date Type Department Care Team Description 01/13/2011 Refill [facility] Cedric Friedman MD Refill Request System in [facility] (synthroid) Family Practice [address] [facility] [address] [place] [address] [place] [address] [address] [place] [address] [phone] (Wo rk) Social History Tobacco Use Types [...] Notes Telephone Encounter - Zaida Martin - 01/13/2011 4:26 PM CST Last visit: BP Readings from Last 1 Encounters: 10/23/2010 112/74 Triage contacted patient who is home sick w/ Strep throat - went to closer clinic Reminded patient of need for Future A1C. She agrees to come to the clinic in early JANUARY to have it drawn. Prescription approved per RN refill protocol for one more month. Your most recent blood tests on record [...] MICROALBUMIN 7.09 07/30/2010] normal 0 - 25 TSH 2.71 07/30/2010 S PERFORMANCE MANAGER Telephone Encounter - Norma Adame - 01/13/2011 3:30 PM CST Faxed request from pharmacy,will be directly faxed back if approved. PCP [facility] 03/18/10 Close encounter when completed. Thank you. S PERFORMANCE MANAGER documented in this encounter Plan of Treatment Not on filedocumented as of this encounter Visit Diagnoses Diagnosis Hypothyroidism - Primary Unspecified hypothyroidism documented in this encounter Care Teams Appliance Counselor Relationship Specialty Start Date End Date Cedric Friedman MD PCP - General 05/30/09 02/21/21 [facility] [place] [address] [place] [address] [address] [place] [address] documented as of this encounter
--- OUTSIDE RECORDS SUMMARY | 2022-08-04 08:46 | XMS_ITS | Encounter Summary ---
:1965 Author Organization [place] Address [address] [facility] [place] [address] Care Team Providers Name Role Phone Cedric Friedman MD Primary Care Provider Encounter Details Date Type Department Care Team Description 09/18/2011 Orders Only [facility] in [place] Hypothyroidism Lab [address] [place] [address] Social History Tobacco Use Types Packs/Day [...] Name Priority Date/Time Associated Diagnosis Comme nts THYROID PEROXIDASE Routine 09/18/2011 4:31 PM Hypothyroidism R esults for this ANTIBODY CDT procedure are i n the results section. documented in this encounter Results (ABNORMAL) Thyroid peroxidase antibody (09/18/2011 4:31 PM CDT) [facility] Method Time Signature Thyroid 1117 (H) <35 IU/mL [facility] Peroxidase [facility] Specimen Anatomical Collection Method Collection Time Receive d Time (Source) Location / / Volume Laterality Blood specimen 09/18/2011 4:31 PM 011 4:32 (specimen) CDT PM CDT Cedric Friedman MD LAB - BLOOD ORDERABLES Performing Organization Address City/State/ZIP Code Phon e Number [facility] [address] [place] [address] [facility] documented in this encounter Visit Diagnoses Diagnosis Hypothyroidism Unspecified hypothyroidism documented in this encounter Care Teams Farm Tractor Operator Relationship Specialty Start Date End Date Cedric Friedman MD PCP - General 05/30/09 02/21/[address] [place] [address] documented as of this encounter
--- OUTSIDE RECORDS SUMMARY | 2022-08-04 08:46 | XMS_ITS | Encounter Summary ---
:1965 Author Organization [place] Address [address] [facility] [place] [address] Care Team Providers Name Role Phone Cedric Friedman MD Primary Care Provider Encounter Details Date Type Department Care Team Description 02/06/2011 Orders Only [facility] Mixed hyp erlipidemia; System in [place] Diabetes mellitus, type 2 (H ); [address] [place] [address] Social History Tobacco Use Types Packs/Day [...] Name Priority Date/Time Associated Diagnosis Comme nts HCL ALBUMIN URINE Routine 02/06/2011 7:53 AM Diabetes mellitus , Results for this (INC CREAT) CDT type 2 (H) procedure are i n the results section. HCL BASIC METABOLIC Routine 02/06/2011 7:47 AM Diabetes mellit us, Results for this PANEL CDT type 2 (H) procedure are i n the results section. HCL TSH W/FREE T4 Routine 02/06/2011 7:47 AM Hypothyroidism Re sults for this REFLEX CDT procedure are i n the results section. HCL GLYCATED Routine 02/06/2011 7:47 AM Diabetes mellitus, Res ults for this HEMOGLOBIN CDT type 2 (H) procedure are i n the results section. HCL ALT Routine 02/06/2011 7:47 AM Mixed hyperlipidemia R esults for this CDT procedure are i n the results section. CL AFF A.M.A. LIPID Routine 02/06/2011 7:47 AM Mixed hyperlipi demia Results for this PANEL CDT procedure are i n the results section. documented in this encounter Results (ABNORMAL) MICROALBUMIN (INC URINE CREAT) (02/06/2011 7:53 AM CDT) [facility] gist Method Time Signature Creatinine 147 mg/dL [facility] Urine [facility] Albumin Urine 31 mg/L [facility] mg/L [facility] Albumin Urine 21.09 (H) 0 - 20 [facility] mg/g Cr mg/g Cr [facility] Specimen Anatomical Collection Method Collection Time Receive d Time (Source) Location / / Volume Laterality 02/06/2011 7:53 AM 1 7:54 CDT AM CDT Cedric Friedman MD LABORATORY Performing Organization Address City/State/ZIP Code Phon e Number [facility] [place] [facility] [address] TSH W/FREE T4 REFLEX (02/06/2011 7:47 AM CDT) athologist Signature TSH 2.85 0.4 - 5.0 [facility] mU/L [facility] Specimen Anatomical Collection Method Collection Time Receive d Time (Source) Location / / Volume Laterality 02/06/2011 7:47 AM 1 7:48 CDT AM CDT Cedric Friedman MD LABORATORY Performing Organization Address City/State/ZIP Code Phon e Number [facility] [place] [facility] [address] (ABNORMAL) HEMOGLOBIN A1C (02/06/2011 7:47 AM CDT) athologist Signature Hemoglobin A1C 7.9 (H) 4.3 - 6.0 [facility] % [facility] Specimen Anatomical Collection Method Collection Time Receive d Time (Source) Location / / Volume Laterality 02/06/2011 7:47 AM 1 7:48 CDT AM CDT Cedric Friedman MD LABORATORY Performing Organization Address City/[facility]/ZIP [facility] Phon e Number [facility] [place] [facility] [address] (ABNORMAL) A.M.A. BASIC METABOLIC PANEL (02/06/2011 7:47 AM CDT) P athologist Signature Sodium 142 133 - 144 [facility] mmol/L [facility] Potassium 4.3 3.4 - 5.3 [facility] mmol/L [facility] Chloride 103 94 - 109 [facility] mmol/L [facility] Carbon Dioxide 29 20 - 32 [facility] mmol/L [facility] Anion Gap 10 6 - 17 [facility] mmol/L [facility] Glucose 173 (H) 60 - 99 [facility] mg/dL [facility] Comment: Fasting specimen Urea Nitrogen 13 5 - 24 mg/dL [place] [facility] Creatinine 0.77 0.52 - 1.04 mg/dL [place] D [facility] GFR Estimate 81 >60 mL/min/1.7m2 [place] [facility] [place] [facility] GFR Estimate If Black >90 >60 mL/min/1.7m2 [facility] [facility] Calcium 10.1 8.5 - 10.4 mg/dL [facility] [facility] Specimen Anatomical Collection Method Collection Time Receive d Time (Source) Location / / Volume Laterality 02/06/2011 7:47 AM 1 7:48 CDT AM CDT Cedric Friedman MD LABORATORY Performing Organization Address [facility] Phon e Number [facility] [place] [facility] [address] (ABNORMAL) ALANINE AMINO (ALT) (SGPT) (02/06/2011 7:47 AM CDT) P athologist Signature ALT 76 (H) 0 - 50 U/L [facility] [facility] Specimen Anatomical Collection Method Collection Time Receive d Time (Source) Location / / Volume Laterality 02/06/2011 7:47 AM 1 7:48 CDT AM CDT Cedric Friedman MD LABORATORY Performing Organization Address City/[facility] Code Phon e Number [facility] [place] [facility] [place] [facility] [address] (ABNORMAL) A.M.A. LIPID PANEL (02/06/2011 7:47 AM CDT) P athologist Signature Cholesterol 255 (H) 0 - 200 [facility] mg/dL [facility] Comment: LDL Cholesterol is the primary guide to therapy. The NCEP recommends further evaluation of: patients with cholesterol <200 mg/dL if additional risk factors are present, cholesterol >240 mg/dL, triglycerides >150 mg/dL, or HDL <40 mg/dL. Triglycerides 268 (H) 0 - 150 mg/dL [facility] [facility] Comment: Fasting specimen HDL Cholesterol 63 50 - 110 mg/dL [facility] [place] [facility] LDL Cholesterol Calculated 139 (H) 0 - 129 mg/dL [facility] [facility] Comment: LDL Cholesterol is the primary guide to therapy: LDL-cholesterol goal in high risk patients is <100 mg/dL and in very high risk patients is <70 mg/dL. VLDL-Cholesterol 54 (H) 0 - 30 mg/dL [facility] Cholesterol/HDL Ratio 4.0 0.0 - 5.0 [facility] [place] [facility] Specimen Anatomical Collection Method Collection Time Receive d Time (Source) Location / / Volume Laterality 02/06/2011 7:47 AM 1 7:48 CDT AM CDT Cedric Friedman MD LABORATORY Performing Organization Address [facility] Phon e Number [facility] [place] [facility] [place] [facility] [place] [facility] [address] documented in this encounter Visit Diagnoses Diagnosis Mixed hyperlipidemia Diabetes mellitus, type 2 (H) Type II or unspecified type diabetes tori litus without mention of complication, not stated as uncontrolled Hypothyroidism Unspecified hypothyroidism documented in this encounter Care Teams Clerical Production Worker Relationship Specialty Start Date End Date Cedric Friedman MD PCP - General 05/30/09 02/21/21 [facility] [place] [address] [place] [address] documented as of this encounter
--- OUTSIDE RECORDS SUMMARY | 2022-08-04 08:47 | XMS_ITS | Encounter Summary ---
:1965 Author Organization [place] Address [facility] [address] Care Team Providers Name Role Phone Cedric Friedman MD Primary Care Provider Reason for Visit Reason Comments Radiology Visit mammo Encounter Details Date Type Department Care Team Description 03/11/2010 Allied Health/Nurse [facility] diology Visit (mammo) Visit System in [facility] [address] [place] [phone] Social History Tobacco Use Types Packs/Day [...] Name Priority Date/Time Associated Diagnosis Comme nts HC MAMMO SCREEN Routine 03/11/2010 9:54 AM Other screening Res ults for this BILATATERAL, INCL CDT mammogram procedure are in CAD WHEN PERF the results section. documented in this encounter Results SCREENING MAMMOGRAPHY DIGITAL (BILAT) (03/11/2010 9:54 AM CDT) P athologist Signature MAMMOGRAM IMPRESSION: RADIOLOGY BI-RADS 1, RESULTS NEGATIVE. Anatomical Region Laterality Modality Other Specimen (Source) Anatomical Collection Method Collection Time Re ceived Time Location / / Volume Laterality 03/11/2010 9:54 AM CDT Impressions 03/11/2010 1:08 PM CDT SCREENING MAMMOGRAM, BILATERAL, DIGITAL w/CAD - Mar 11, 2010 9:54:00 AM BREAST SYMPTOMS: None reported. COMPARISON: baseline ?? PARENCHYMAL PATTERN: Heterogeneously den se. COMMENTS: No findings of suspicion for m alignancy. IMPRESSION: BI-RADS 1, NEGATIVE. Marc Cabral MD SPECIAL IMAGING STUDIES documented in this encounter Visit Diagnoses Diagnosis Other screening mammogram documented in this encounter Care Teams Mission Manager Relationship Specialty Start Date End Date Cedric Friedman MD PCP - General 05/30/09 02/21/21 [facility] [address] [facility] [address] [place] [address] documented as of this encounter
--- OUTSIDE RECORDS SUMMARY | 2022-08-04 08:47 | XMS_ITS | Encounter Summary ---
:1965 Author Organization [place] Address [facility] [place] [address] Care Team Providers Name Role Phone Cedric Friedman MD Primary Care Provider Reason for Visit Reason Comments Radiology Visit pelvic sono Encounter Details Date Type Department Care Team Description 03/22/2010 Allied Health/Nurse [facility] [place] diology Visit (pelvic Visit System in [place] sono) Imaging [address] [place] [address] Social History Tobacco Use Types [...] Priority Date/Time Associated Diagnosis Comme nts HC US PELVIC SURYA 03/22/2010 10:30 AM LLQ abdominal pain Re sults for this NON-OB, COMPLETE CDT procedure a re in the results section. documented in this encounter Results SONO PELVIS COMPLETE (03/22/2010 10:30 AM CDT) Anatomical Region Laterality Modality Other Specimen (Source) Anatomical Collection Method Collection Time Re ceived Time Location / / Volume Laterality 03/22/2010 10:30 AM CDT Impressions 03/22/2010 2:27 PM CDT ULTRASOUND, PELVIS, WITH DOPPLER ?? March 22, 2010 10:30 AM ?? HISTORY: Left lower quadrant pain. TECHNIQUE: Transabdominal complemented w ith endovaginal scanning to better evaluate adnexal structures. [place] r Doppler imaging also performed. COMPARISON: CT 01/22/2010. FINDINGS: ?? Uterus: Measures 6.9 x 4.3 x 3.8 cm. The endometrial stripe is 7 mm. Diffusely nonhomogeneous. At least 2 matt rine leiomyomas. The largest measures 3.3 x 1.8 x 1.7 cm in the anter ior myometrium. The second appears to be submucosal in the posterio r myometrium and measures 1.0 x 0.6 x 0.5 cm. Adnexa: Right ovarian dimensions: 2 x 1 x 2.5 cm . ?? Left ovarian dimensions: 3.6 x 4.4 x 2.0 cm. Prominent follicle measures 1.4 x 1.0 x 1.3 cm. Multiple ca lcifications left ovary. ?? Cul-de-sac fluid: None. ?? IMPRESSION: 1. Prominent follicle left ovary. 2. Uterine leiomyomas, one of which appe ars to be submucosal. Cedric Friedman MD SPECIAL IMAGING STUDIES documented in this encounter Visit Diagnoses Diagnosis LLQ abdominal pain Abdominal pain, left lower quadrant documented in this encounter Care Teams Soap Chipper Relationship Specialty Start Date End Date Cedric Friedman MD PCP - General 05/30/09 02/21/[address] [place] [address] documented as of this encounter
--- OUTSIDE RECORDS SUMMARY | 2022-08-04 08:47 | XMS_ITS | Encounter Summary ---
:1965 Author Organization [place] Address [facility] [place] [address] Care Team Providers Name Role Phone Cedric Friedman MD Primary Care Provider Reason for Visit Reason Comments PT Initial Visit vestibular Encounter Details Date Type Department Care Team Description 09/18/2010 [facility] Niru Smart, PT PT Initial Visit Health/Nurse System in [facility] (vestibul ar) Visit Physical Therapy Health System in [address] [place] [id number] [place], [place] [phone] Social History Tobacco Use Types Packs/Day Years [...] this encounter Progress Notes Niru Smart - 09/18/2010 4:42 PM CDT REHAB SNAPSHOT Referring Provider: Norma Beasley D.O. MD Visit Date / Order Date: 09/18/10 Recheck: PRN Orders: Evaluate and treat Medical Diagnosis: BPV Contraindications or Precautions: None Onset: 09/18/10 Rehab Clinical Impression: Possible BPPV - Canalithiasis and Gait / Balance Disturbance Specialty Tracking: Balance / Vestibular PHYSICAL THERAPY INITIAL EVALUATION and PLAN OF CARE SUBJECTIVE: PRESENTATION AND ETIOLOGY Chief Complaint: imbalance, vertigo, dizziness, light-headedness, impaired gait and nausea/vomittinglimiting their ability to perform perform activities of daily living and perform required work activities. Secondary Complaints: None Character: Head feels in a fog. Nausea. Dizziness which is worse with head movements or position changes. Feels off balance. Body feels like it is moving around. Fatigue. Onset: Insidious: 1.5 hours prior to arrival. Etiology: Patient stood up quickly from her desk and felt dizzy. Denies recent illness or injury. Previous episode: none Frequency: constant and activity dependent Duration: constant Intensity: Current 5/10 Pattern Since Onset: Unchanged Pertinent Medical / Surgical History: Epic Snapshot Reviewed with patient: Contributing factors to the severity / complexity of the patient's chief complaint include: Vestibular Specific: Diabetes and Back Problems. Symptom Pattern: None Specific Questions: Patient has glasses Vision changes: none Hearing changes: none Nausea/vomitting: yes Headache: none LEVEL OF FUNCTION Aggravating Activities / Functional Limitation(s): Transfers: sit to stand Head Movements: left, right, up and down Reading Walking Prior Functional Level: No functional limitations prior to onset of chief complaint. Potential Home or Community Barriers: None CURRENT / PREVIOUS INTERVENTION(S): MD Treatment: Referral to Physical Therapy Diagnostic Tests: None Relieving Activities / Self Care: None Previous / Current therapies for current chief complaint: None DEMOGRAPHICS Living Environment: Private Home Social Support: Spouse / Significant Other Employment Status: Security Operations Specialist: Employer: [employer] Current Department / Title: credit office manager. Time at current position: NA Job Demands: computer Patient's perceived quality of life: good Patient's goals for therapy: Decrease dizziness and improve function. OBJECTIVE: POSTURE: Observation: presents for 30 minute immediate work in evaluation, seated in wheelchair. Wearing glasses. Static and Dynamic: Not Tested GAIT, LOCOMOTION, and BALANCE: Gait and Locomotion: Assistive Device: wheel chair. Head Turns: not tested. Balance and Proprioception: Not Tested: Time constraints Dynamic Gait Index: Not tested. RANGE OF MOTION: Active: WNL/WFL Passive: Not Tested Accessory motion: Not Tested MUSCLE PERFORMANCE: Strength: Not Tested Flexibility: Not Tested SELF CARE AND HOME MANAGEMENT / COMMUNITY AND WORK INTEGRATION: Functional Testing / Observation: sit to stand with SBA OCULOMOTOR EXAM: Subjective report of nausea noted with MD performed these test easier. Smooth Pursuit: Not Tested Saccades: Not Tested Convergence/Divergence: Not Tested Visual Acuity: Not tested SPECIAL TEST(S): Joint Specific Special Tests: Vestibulo-ocular Reflex: Not Tested Head Shake Test: Not Tested: Time constraints Head Thrust: Not Tested: Time constraints VOR Cancellation: Not Tested: Time constraints Vertebral Artery Test: (-) Alar Ligament Test: (-) Valsalva: Not Tested: Time constraints Hallpike Tintah: Right: (-), Left: (+) subjective report of dizziness but no nystagmus noted Roll Test: Not Tested: Time constraints Neurological Special Tests: Myotome Testing: WNL Sensation Testing: WNL Deep Tendon Reflexes: Not Tested: Not indicated NEUROMOTOR DEVELOPMENT AND SENSORY INTEGRATION: Coordination: Finger to nose: Not Tested Rapid alternating movement: Not Tested Heel to beckett: Not Tested. VENTILATION, RESPIRATION, AND CIRCULATION: Blood Pressure: Not Tested ASSESSMENT: Physical Therapy Diagnosis: Signs and symptoms consistent with: BPPV - Canalithiasis and Gait / Balance Disturbance Patient requires skilled Physical Therapy intervention for the following impairments: Limited knowledge of condition and / or self care - inability to control symptoms, Impaired functional mobility, Impaired gait / weight bearing tolerance and Impaired static and / or dynamic balance These impairments are limiting the patient's ability to perform the following functional activities: Transfers: sit to stand Head Movements: left, right, up and down Reading Walking Work PLAN: Anticipated Goals and Expected Outcomes: Independent and safe with home exercise / self care programin 1-4 week(s). Transfer from chair and bed without increased pain or symptoms in 1-4 week(s). Ambulation without increased pain or symptoms for community distances on flat surfaces in 1-4 week(s). Forward bending 30 minutes to 2.5 hours (occasionally) without increased pain or symptoms in 1-4 week(s). STG Completed within: 2 week(s). (-) Hallpike Sonya Test Rehab potential for achieving goals and expected outcomes: good Skilled physical therapy interventions and plan to achieve goals and expected outcomes: ?? Patient education to inform, educate, and/or train patients, families, significant others, and caregivers to promote and optimize physical therapy services. ?? Coordinate, communicate, and document to ensure the patient receives appropriate, comprehensive, and efficient quality care. ?? Procedural interventions: neuromuscular reeducation of: balance for sitting and / or standing activities and education in self care / home management training to include instruction in: symptom control techniques and Mechanical debris removal from PSSC to alleviate symptoms of vertigo with positionchanges of head relative to gravity and decrease unsteadiness. ?? Increase gain of central vestibular system to enhance patient's ability to stabilize gaze on object with movement of head to decrease symptoms of dizziness and unsteadiness. ?? Enhance postural control in a variety of sensory environments with decreased base of support and perturbations to decrease risk of falling. Assessment will be ongoing with changes in treatment as indicated. Benefits/risks/alternatives to treatment have been reviewed and the patient/skin care instructor has been instructed to contact this office if they have any questions or concerns. This plan of care has been discussed with the patient/skin care instructor and the patient/skin care instructor is in agreement. Frequency / Duration: Patient will be seen 1 session(s) every 1-2 week(s) for a total of 1-4 visit(s) Anticipated discharge plan: Independent and safe with home exercise and self care program Niru Smart, PT Date: 09/18/2010 Referring Provider Certification: Referring Provider reviewing certifies the above treatment plan isrequired and authorized and that the patient's plan will be reviewed every 30 days. Referring Provider Signature: per electronic co-sign. Today's Treatment: Initial Evaluation. THERAPEUTIC PROCEDURES Neuromuscular Reeducation: 10 minutes Vestibular: Pretty's Maneuver: performed X 1 rep to left. Subjective report of dizziness X 10 sec in position #1. Self Care / Home Management Trainin minutes Symptom Control: educate patient about BPPV. Provided written activity guidelines s/p Pretty. Post treatment response: Subjective report of nausea post treatment. Focus next session will be on: patient education and balance Total Visit Time: 45 minutes Total Time-Based Code Only Minutes: 20 minutes. WEB DEVELOPMENT MANAGER PRESENT: NA MULTIDISCIPLINARY PATIENT / FAMILY EDUCATION RECORD Department: Physical Therapy Readiness to Learn: Ability to understand verbal instructions, Ability to understand written instructions, Knowledge of educational needs / treatment plan Specific Barriers to Learning: None Referrals: None Learning Needs: Rehabilitation techniques to improve functional independence Who: Patient How: Demonstration, Verbal instructions, Written instructions Response: Appropriate verbal response, Asked questions, Demonstrated ability, Verbalized recall / understanding documented in this encounter Plan of Treatment Not on filedocumented as of this encounter Visit Diagnoses Not on filedocumented in this encounter Care Teams Cause Analyst Relationship Specialty Start Date End Date Cedric Friedman MD PCP - General 05/30/09 02/21/21 [facility] [address] [place] [address] [address] [place] [address] documented as of this encounter
--- OUTSIDE RECORDS SUMMARY | 2022-08-04 08:47 | XMS_ITS | Encounter Summary ---
:1965 Author Organization [place] Address [address] [facility] [place] [address] Care Team Providers Name Role Phone Cedric Friedman MD Primary Care Provider Reason for Visit Reason Onset Date Comments Triage 03/15/2010 symptoms Encounter Details Date Type Department Care Team Description 03/15/2010 Telephone [facility] Zaida Ambrose, laborer concrete paving (sympt[place]) [place] [address] [place] [id number] [facility] [phone] Social History Tobacco Use Types Packs/Day Years [...] Notes Telephone Encounter - Zaida Martin - 03/15/2010 11:30 AM CDT Patient is reporting not feeling any better after I was seen on Thursday Last visit: Last 1 Encounter Readings: Office Visit on 03/12/2010 03/12/2010 2:50 PM BP: 128/78 I am exhuasted, I am still coughing and sneezing. My mucus has changed to yellow from clear Per Plan of care patient advised to RTC for recheck. Transferred to medical secretary receptionist for an appt with team provider today. documented in this encounter Plan of Treatment Not on filedocumented as of this encounter Visit Diagnoses Not on filedocumented in this encounter Care Teams Mental Health Professional Relationship Specialty Start Date End Date Cedric Friedman MD PCP - General 05/30/09 02/21/[address] [address] documented as of this encounter
--- OUTSIDE RECORDS SUMMARY | 2022-08-04 08:47 | XMS_ITS | Encounter Summary ---
:1965 Author Organization [place] Address [facility] [place] [address] Care Team Providers Name Role Phone Cedric Friedman MD Primary Care Provider Reason for Visit Reason Comments Derm Problem several spots on neck/skin t ags and hand,itchy Thyroid Problem still having excessive sweat ing- ?recheck lab Pre Visit Planning - Done 06/06 Encounter Details Date Type Department Care Team Description 06/07/2010 Office Visit [facility] Norma Beasley Hypo thyroidism (Primary Dx); System in [place] M, DO Mixed Hyperlipidemia; Family Practice [facility] [place] Diabetes Mellitus, Type 2 (H); [address] Tinea Versicolor; [place] [address] Skin Tag(s) [id number] [place] [phone] Social History Tobacco Use Types Packs/Day Years [...] Sign Reading Time Taken Comments Blood Pressure 102/74 06/07/2010 11:19 AM CDT Pulse 68 06/07/2010 11:19 AM CDT Temperature 36.7 ??C (98 ??F) 06/07/2010 11:19 AM CDT Respiratory Rate - - Oxygen Saturation - - Inhaled Oxygen Concentration - - Weight 79.1 kg (174 lb 4.8 oz) 06/07/2010 11:19 AM CDT Height - - Body Mass Index 28.35 01/28/2010 9:50 AM CDT documented in this encounter Progress Notes Norma Beasley, - 06/07/2010 12:26 PM CDT Subjective: Sil Power a 44 year old female who presents today for lesion removal. The lesion(s) is/are located on the neck, number 18 and measures 0.1cm She The patient reports the lesion is itching and painfull and denies other significant symptoms on ROS. Medications reviewed. She has had a moderate rash on her arms, abdomen and neck for the past several months. Reports associated itching. Denies associated URI symptoms. Denies any new medications, detergents or creams. Wastold it was vitiligo and not much to do but appears to be tinea versicolor. Pause for the cause has been completed prior to the prceedure. 1. Sil was identified by both name and date of 2. The correct site was identified 3. Site was marked by provider 4. Written informed consent correct and signed or verbal authorization to proceed was obtained 5. Verifed necessary supplies, equipment, and diagnostics are available 6. Time out was performed immediately prior to procedure Objective: The lesion(s) is/are of the above mentioned size and location and is/are typical. The area was prepped and appropriately anesthetized. Using the usual technique, excision with an iris scissors was performed. An appropriate dressing was applied. The procedure was well tolerated and without co mplications. ASSESSMENT: 1. Hypothyroidism (244.9Y) 2. Mixed Hyperlipidemia (272.2) 3. Diabetes Mellitus, Type 2 (250.00BC) 4. Tinea Versicolor (111.0B) SELENIUM SULFIDE 1 % EX LOTN 5. Skin Tag(s) (701.9T) REMOVAL OF SKIN TAGS, FIRST 15, REMOVAL OF SKIN TAGS, EACH ADD 10 follow up for lack of improvement or new concerns documented in this encounter Plan of Treatment Not on filedocumented as of this encounter Procedures Procedure Name Priority Date/Time Associated Diagnosis Comme nts HC REMOVAL OF SKIN Routine 06/07/2010 12:26 PM CDT Skin Tag(s) TAGS, EA ADDTL 10 HC REMOVAL OF SKIN Routine 06/07/2010 12:26 PM CDT Skin Tag(s) TAGS, FIRST 15 documented in this encounter Visit Diagnoses Diagnosis Hypothyroidism - Primary Unspecified hypothyroidism Mixed hyperlipidemia Diabetes mellitus, type 2 (H) Type II or unspecified type diabetes tori litus without mention of complication, not stated as uncontrolled Tinea versicolor Pityriasis versicolor Skin tag(s) Unspecified hypertrophic and atrophic co ndition of skin documented in this encounter Care Teams Equal Opportunity Representative Relationship Specialty Start Date End Date Cedric Friedman MD PCP - General 05/30/09 02/21/21 [facility] [place] [address] [facility] [address] [place] [address] documented as of this encounter
--- OUTSIDE RECORDS SUMMARY | 2022-08-04 08:47 | XMS_ITS | Encounter Summary ---
:1965 Author Organization [place] Address [address] [place] [address]. [place] [address] Care Team Providers Name Role Phone Cedric Friedman MD Primary Care Provider Reason for Referral - Closed Specialty Diagnoses / Procedures Referred By Contact Refer red To Contact Diagnoses Labyrinthitis, unspecified Norma Beasley DO [facility] [place] [address] [place] [address] Referral ID Status Reason Start Date Expiration Date Visits Requ ested Visits Authorized [id number] Closed 09/18/2010 09/18/2010 1 1 Reason for Visit Reason Comments Dizziness onset about an hour ago. Pt unsure of orgin. Encounter Details Date Type Department Care Team Description 09/18/2010 Office Visit [facility] Norma Beasley Unsp ecified System in [place] DO labyrinthitis (Primary Family Practice [facility] [place] Dx) [address] [place] [address] [address] [place] [phone] Social History Tobacco Use Types Packs/Day Years [...] Reading Time Taken Comments Blood Pressure 120/72 09/18/2010 10:52 AM CDT Pulse 80 09/18/2010 10:52 AM CDT Temperature 36.9 ??C (98.4 ??F) 09/18/2010 10:52 AM CDT Respiratory Rate - - Oxygen Saturation - - Inhaled Oxygen Concentration - - Weight 78.2 kg (172 lb 4.8 oz) 09/18/2010 10:52 AM CDT Height - - Body Mass Index 28.02 01/28/2010 9:50 AM CDT documented in this encounter Progress Notes Norma Beasley, - 09/18/2010 12:11 PM CDT The patient complains of a room spinning sensation of moderate severity for 1 hour. The patient describes the symptoms as spinning sensation. The patient admits to associated nausea and blurry vision. The patient denies associated vomiting, numbness in extremities, tingling in extremities, weakness in extremities and hearing loss. The patient describes modifying or exacerbating factors as: reading orturning head. The patient has attempted the following treatments: none. The patient denies any otheraggravating or alleviating factors or associated symptoms. OBJECTIVE: BP 120/72 Pulse 80 Temp(Src) 98.4 ??F (36.9 ??C) (Temporal) Wt 78.155 kg (172 lb 4.8 oz). GENERAL APPEARANCE: Alert, no acute distress EYES: PERRL, EOM normal, conjunctiva and lids normal HENT: Ears and TMs normal, oral mucosa and posterior oropharynx normal NECK: No adenopathy,masses or thyromegaly RESP: lungs clear to auscultation CV: normal rate, regular rhythm, no murmur or gallop NEURO: Alert, oriented, speech and mentation normal, Cranial nerves 2-12 are normal.. ASSESSMENT: 1. Unspecified labyrinthitis (386.30) PHYSICAL THERAPY (RW/ZU) REFERRAL follow up for lack of improvement or new concerns documented in this encounter Plan of Treatment Not on filedocumented as of this encounter Visit Diagnoses Diagnosis Labyrinthitis, unspecified - Primary documented in this encounter Care Teams Control Panel Operator Crude Unit Relationship Specialty Start Date End Date Cedric Friedman MD PCP - General 05/30/09 02/21/[address] [place] [address] documented as of this encounter
--- OUTSIDE RECORDS SUMMARY | 2022-08-04 08:47 | XMS_ITS | Encounter Summary ---
:1965 Author Organization [place] Address [address] [facility] [place] [address] Care Team Providers Name Role Phone Cedric Friedman MD Primary Care Provider Sushma Jamison MD Primary Care Provider Unavailable Encounter Details Date Type Department Care Team Description 03/22/2010 [facility] in [place] Aime tracy MD [facility] [address] [place] [address] [place] [address] [phone] (Wo rk) Social History Tobacco Use Types [...] on filedocumented in this encounter Care Teams Wind Turbine Engineer Relationship Specialty Start Date End Date Cedric Friedman MD PCP - General 05/30/09 02/21/21 [facility] [address] [place] [address] Sushma Jamison MD PCP - General Family Medicine 02/22/21 [address] [place] [address] documented as of this encounter
--- OUTSIDE RECORDS SUMMARY | 2022-08-04 08:47 | XMS_ITS | Encounter Summary ---
:1965 Author Organization [place] Address [facility] [place] [address] Care Team Providers Name Role Phone Yvrose Cox MD Primary Care Provider Reason for Visit Reason Comments Sick c/o sore throat, onset last night, MARC, ears hurt, upset stomach. Encounter Details Date Type Department Care Team Description 03/12/2010 Office Visit [facility] Yvrose Cox, ACUTE PHARYNGITIS (Primary Dx); System in [place] MD Seasonal Allergic Rhinitis Family Practice [facility] [place] [address] [place], [place] [address] [address] [place] [phone] Social History Tobacco Use Types Packs/Day Years [...] Sign Reading Time Taken Comments Blood Pressure 128/78 03/12/2010 2:50 PM CDT Pulse 68 03/12/2010 2:50 PM CDT Temperature 36.7 ??C (98 ??F) 03/12/2010 2:50 PM CDT Respiratory Rate - - Oxygen Saturation - - Inhaled Oxygen Concentration - - Weight 78.2 kg (172 lb 4.8 oz) 03/12/2010 2:50 PM CDT Height - - Body Mass Index 28.02 01/28/2010 9:50 AM CDT documented in this encounter Progress Notes Yvrose Cox MD - 03/12/2010 3:27 PM CDT Chief Complaint Patient presents with ??? Sick c/o sore throat, onset last night, MARC, ears hurt, upset stomach. SUBJECTIVE: Sil is a 44 year old female who presents today complaining of a sore throat for the past 1 days.has not had fever or chills. does not currently have respiratory symptoms such as nasal congestion, rhinorrhea, or cough. has not had vomiting. No dysuria. No joint aches or swelling. has not had skin rash. She has watery eyes and some sneezing. She had an upset stomach last night, but it is better today. Outpatient prescriptions marked as taking for the 03/12/10 encounter (Office Visit) with YVROSE COX: SIMVASTATIN 40 MG OR TABS 1 TABLET AT BEDTIME Disp: 30 Rfl: 5 SYNTHROID 50 MCG OR TABS 1 TABLET DAILY Disp: 30 Rfl: 5 PROAIR HFA 108 (90 BASE) MCG/ACT IN AERS INHALE 1 TO 2 PUFFS EVERY 4 TO 6 HOURS NEEDED Disp: 1 Rfl: 5 METFORMIN HCL# 500 MG (OSM) OR SR 24HR 2 TABLETS DAILY Disp: 60 Rfl: 12 ASPIRIN 81 MG OR TABS ONE DAILY Disp: 100 Rfl: 3 ROS: headache, rhinorrhea. OBJECTIVE:Blood pressure 130/80, pulse 68, temperature 98 ??F (36.7 ??C), temperature source Temporal, weight 172 lb 4.8 oz (78.155 kg). Sil is alert and oriented. No acute distress. HEENT: PERRL. EOM intact. No conjunctival infection. TM's are benign in appearance. Posterior pharynx is erythematous. Exudate is not present. Nose: clear rhinorrhea. Sinuses are not tender. NECK: normal anterior cervical nodes are palpable. No posterior cervical nodes. RESP: Lungs are clear to auscultation. CV: Regular rate and rhythm. GI: Abdomen soft and non-tender. No hepatosplenomegaly. Normoactive bowel sounds. MUSCULOSKELETAL: no swollen or erythematous joints. No skin rash. Rapid Strep test is negative. ASSESSMENT: 1. Seasonal allergies. PLAN: Claritin. Symptomatic and supportive care with Tylenol or Ibuprofen. Salt water gargles. OTC topicalthroat anesthetic discussed. Push fluids. Rest. Return to clinic if not improving over the next 3 to5 days. documented in this encounter Plan of Treatment Not on filedocumented as of this encounter Procedures Procedure Name Priority Date/Time Associated Diagnosis Comme nts HCL STREP GROUP A Routine 03/12/2010 2:53 PM Acute Pharyngitis Results for this ANTIGEN (RAPID) CDT procedure ar e in the results section. HCL BETA STREP Routine 03/12/2010 2:53 PM Acute Pharyng itis Results for this CONFIRM CDT Seasonal Allergic procedure are in Rhinitis the results section. documented in this encounter Results BETA STREP CONFIRM (03/12/2010 2:53 PM CDT) Component Value Ref Test Analysis Performed At [facility] Range Method Time Signature Specimen Throat [place] Description [facility] Culture Micro No Beta [place] Streptococcus [facility] isolated Micro Report FINAL 03/14/2010 [facility] ED Status [facility] Specimen Anatomical Collection Method Collection Time Receive d Time (Source) Location / / Volume Laterality 03/12/2010 2:53 PM 0 4:00 CDT PM CDT Yvrose Cox MD LABORATORY Performing Organization Address City/State/ZIP Code Phon e Number [facility] [place] [facility] [address] STREP GROUP A ANTIGEN (RAPID) (03/12/2010 2:53 PM CDT) Component Value Ref Test Analysis Performed At [facility] Range Method Time Signature Specimen Throat [place] Description [facility] Rapid Strep A NEGATIVE: No Group A strepto coccal antigen detected by immunoassay, await [place] Screen culture report. [facility] Micro Report FINAL 03/12/2010 [facility] ED Status [facility] Specimen Anatomical Collection Method Collection Time Receive d Time (Source) Location / / Volume Laterality 03/12/2010 2:53 PM 0 2:58 CDT PM CDT Yvrose Cox MD LABORATORY Performing Organization Address City/State/ZIP Code Phon e Number [facility] [place] [address] documented in this encounter Visit Diagnoses Diagnosis Acute pharyngitis - Primary Seasonal allergic rhinitis Allergic rhinitis, cause unspecified documented in this encounter Care Teams Aircraft Magneto Mechanic Relationship Specialty Start Date End Date Yvrose Cox MD PCP - General 05/30/09 02/21/21 [facility] [place] [address] [facility] [address] [place] [address] documented as of this encounter
--- OUTSIDE RECORDS SUMMARY | 2022-08-04 08:47 | XMS_ITS | Encounter Summary ---
:1965 Author Organization [place] Address [address] [facility] [place] [address] Care Team Providers Name Role Phone Cedric Friedman MD Primary Care Provider Sushma Jamison MD Primary Care Provider Unavailable Encounter Details Date Type Department Care Team Description 03/21/2010 [facility] in [place] Aime tracy MD [facility] [address] [place] [address] [place] [address] [phone] (Wo rk) Social History Tobacco Use Types [...] on filedocumented in this encounter Care Teams Clinical Documentation Spec Relationship Specialty Start Date End Date Cedric Friedman MD PCP - General 05/30/09 02/21/21 [facility] [address] [place] [address] Sushma Jamison MD PCP - General Family Medicine 02/22/21 [address] [place] [address] documented as of this encounter
--- OUTSIDE RECORDS SUMMARY | 2022-08-04 08:47 | XMS_ITS | Encounter Summary ---
:1965 Author Organization [place] Address [address] [facility] [place] [address] Care Team Providers Name Role Phone Cedric Friedman MD Primary Care Provider Reason for Referral Consultation (Routine) - Closed Specialty Diagnoses / Procedures Referred By Contact Refer red To Contact inspector bullet slugs Diagnoses Screening for malignant neoplasm of the cervix Amaris Mariano NP [employer] [facility] [address] [facility] [place] [address] [address] [place] [address] Fax: Referral ID Status Reason Start Date Expiration Date Visits V isits Requested Authorized [id number] Closed Consult Only 01/28/2010 07/31/2010 1 1 Reason for Visit Reason Comments Physical Encounter Details Date Type Department Care Team Description 01/28/2010 Office Visit [facility] Amaris Mariano NP Screening for Malignant Neoplasm of the Cervix (Primary Dx); [facility] SI (Stress Incontinence); CONTACT LENS CURVE GRINDER [address] Routine Gynecological Examination [address] [place] [phone] Social History Tobacco Use Types Packs/Day Years [...] Sign Reading Time Taken Comments Blood Pressure 122/80 01/28/2010 9:50 AM CDT Pulse - - Temperature - - Respiratory Rate - - Oxygen Saturation - - Inhaled Oxygen Concentration - - Weight 77.1 kg (170 lb) 01/28/2010 9:50 AM CDT Height 167 cm (5' 5.75) 01/28/2010 9:50 AM CDT Body Mass Index 27.65 01/28/2010 9:50 AM CDT documented in this encounter Patient Instructions Patient Amaris Matthews NP - 01/28/2010 10:22 AM CDT Patient Education for Urodynamics Testing What is ???Urodynamics?Uro?? means urine or related to the urinary system. ???Dynamics?? means moving against pressure. A urodynamics evaluation is designed to see how urine fills the bladder and moves through the lowerurinary system to the outside of the body. It details what happens when the bladder fills and empties by measuring volumes and pressures. When is an Urodynamics evaluation indicated? The following conditions may indicate the need for an urodynamics evaluation. These conditions include: Problems with bladder storage and voiding Incontinence (uncontrolled, unintentional loss of urine) Having a bladder that does not completely empty A weak or intermittent urine stream Pelvic discomfort or pain Where and when will the test be performed? The testing will be performed in the clinic at a scheduled time. You can schedule a time that will work for you with the receptionists/schedulers. The test will take approximately 30 minutes to complete. Do I need special prep or instructions before the procedure? You may eat and drink normally the day of the exam. We do ask that you come to the test with your bladder comfortably full. You may take your medication as normal prior to and after the test. Please bring a list of all medications that you are taking to the appointment. There is no anesthesia involved. You will be able to walk, eat, and drive home immediately after having the procedure completed. There is no pain involved in this evaluation. What can I expect during the procedure? Initially, you will be asked to empty your bladder into a special commode. This will record how wellyou urinate, and how strong your stream is. A small tube called a catheter will be inserted into your bladder. It is a about the size of a pieceof spaghetti. This may burn slightly or feel a little uncomfortable when it is in place, or it may not bother you at all. It will be used to make sure that your bladder is empty after urinating and then it will be used to fill your bladder with colored water and measure the change in bladder pressure as it fills and empties. Another small tube will be inserted into your vagina. You should not feel this at all. It will measure the pressure in your abdomen when you strain or cough. As your bladder is filled with colored water through the catheter, you will be asked to describe howyour bladder feels. You may be asked to strain or cough several times. There are a total of 4 stages to this procedure. After your bladder is filled and the first 3 stagescompleted, the fourth stage is for you to urinate with the catheters in place to monitor your urination. Once you have urinated, the catheters will be removed and the test is complete. The physician performing the procedure will provide you with a summary of the results. If a different physician has referred you for this test, the results will be forwarded to that physician for a plan of care. Is there anything I need to be do after having the Urodynamics procedure? Drink plenty of fluids to flush out the bladder. Be aware that because of the blue coloring used, your urine will be a green color for a day or so. Notify your doctor for any new signs or symptoms of a urinary tract infection. Such as fever, frequency/urgency of urine, blood in the urine, chills, painful urination, or low back pain. If instructed, make a follow-up appointment with your doctor to discuss results and treatment plan. documented in this encounter Progress Notes Amaris Mariano NP - 01/28/2010 12:17 PM CDT Joce is a 44 year old year old woman here today for her preventative health exam. No LMP recorded. She states her menses come every 4-6 weeks lasting 4 days. She is sexually active and denies dyspareunia. Using BTL for contraception. Joce has the following concerns today: is concerned about stress incontinence. Has problems when coughing or sneezing. Gets up to void 1-2 times at night. Health maintenance: Exercise: nothing regular Vitamins: none Calcium intake: Calcium intake discussed, adequate through diet. History: Obstetric History T0 P1 TAB0 SAB0 E0 M0 L2 Past Medical History Diagnosis Date ??? Hypothyroidism 2007 ??? Diabetes Mellitus 2003 ??? Hyperlipidemia 2008 Past Surgical History Procedure Date ??? C-sec+ care,prev c-sec X2- 1986 and 2006 Current Outpatient Rx Name Route Sig Dispense Refill ??? SIMVASTATIN 40 MG OR TABS Oral 1 TABLET AT BEDTIME 30 5 PHARMACY: DO NOT REFILL TODAY - UPDATED RX INFORM ... ??? SYNTHROID 50 MCG OR TABS Oral 1 TABLET DAILY 30 5 PHARMACY: DO NOT REFILL TODAY - UPDATED RX INFORM ... ??? PROAIR HFA 108 (90 BASE) MCG/ACT IN AERS Inhalation INHALE 1 TO 2 PUFFS EVERY 4 TO 6 HOURS NEEDED 1 5 ??? METFORMIN HCL# 500 MG (OSM) OR SR 24HR Oral 2 TABLETS DAILY 60 12 ??? ASPIRIN 81 MG OR TABS Oral ONE DAILY 100 3 Percocet and Phenergan History Social History ??? Marital Status: Spouse Name: Danny Number of Children: 2 ??? 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 Tobacco Use: Never ??? Alcohol Use: Yes social ??? Drug Use: No ??? Sexually Active: Yes -- Male partner(s) Control/ Protection: Surgical BTL Other Topics Concern ??? Parent/sibling W/ Cabg, Mi Or Angioplasty Before 65f 55m? No ??? Service No ??? Blood Transfusions Yes 1987 or after D&C ??? Caffeine Concern Yes 0-1 coffee daily, occassional soda ??? Sleep Concern No ??? Stress Concern No ??? Weight Concern No ??? Special Diet Yes borderline diabetic ??? Exercise No some walking ??? Seat Belt Yes ??? Self-exams Yes Social History Narrative ??? No narrative on file Family History Problem Relation ??? Hypertension Mother Review of Systems: Negative unless otherwise noted. Neuro: negataive Eyes: has glaucoma, gets regular eye exams, glasses Ent: reg dental exam Pulmonary: negative Cardiovascular: increased stress lately, GI:has had colonoscopy in the past: normal. Has problems with constipation, stomach cramps at times : see above Breast: negative, has mammo ordered Psych: negative Other: none Exam: Well nourished, well developed female in NAD. Neuro: Intact Eyes: MIRTHA ENT: Intact Neck: no thyromegaly, no lymph adenopathy Lungs: clear, equal to auscultation bilaterally, no wheezes,rales,rhonchi Heart: regular rate and rhythm, no murmur, gallop or rub Breast: palpation negative for masses or nodules, no axillary masses palpable Abdomen: Benign, Soft, flat, non-tender, No masses, organomegaly, No inguinal nodes and Bowel soundsnormoactive Contract Technician: external genitalia normal, vaginal mucosa normal, cervix normal, specimen sent for pap, bimanual exam with normal uterus and adnexa, rectovaginal exam unremarkable Extremities: extremities, peripheral pulses and reflexes normal, no edema, redness or tenderness in the calves or thighs Assessment and Plan: Normal Preventative health exam. Normal health maintanence includes Pap smear, Mammogram, Stress incontinence: consult to ASSOCIATE PROFESSOR OF GEOGRAPHY for urodynamics /evaluation Pt encourage to call with any questions. Discussed daily exercise and daily multivitamin. Calcium intake of at least 1000mg/day also discussed. Monthly SBE taught. documented in this encounter Nursing Notes 01/28/2010 9:45 AM CDT >> Abimbola Varela Mon Jan 28, 2010 10:06 AM Annual exam without c/o any. Is using tubal ligation for BC. Does have mammogram ordered. BR documented in this encounter Plan of Treatment Not on filedocumented as of this encounter Procedures Procedure Name Priority Date/Time Associated Diagnosis Comme nts HCL PAP THIN LAYER Routine 01/28/2010 12:00 AM Screening for R esults for this SCREEN CDT Malignant Neoplasm procedure are in of the Cervix the results section. documented in this encounter Results A THIN LAYER PAP SCREEN [G0123.000] (01/28/2010 12:00 AM CDT) Component Value Ref Test Analysis Performed At [facility] Range Method Time Signature PAP NIL COPATH Copath Report COPATH Patient Name: JOCE POWER MR#: [id number] Specimen #: [id number] Collected: 01/28/2010 Received: 01/29/2010 Reported: 01/30/2010 14:59 Ordering Phy(s): AMARIS MARIANO SPECIMEN/STAIN PROCESS: Pap thin layer prep screening ([facility]) ? Pap-Cyto x 1, Reflex HPV x 1 SOURCE: Cervical, endocervical ---- Pap thin layer prep screening ([facility]) SPECIMEN ADEQUACY: Satisfactory for evaluation. -Transformation zone component present. CYTOLOGIC INTERPRETATION: Negative for Intraepithelial Lesion or Malignancy Electronically signed out by: JEFF Goodson (ASCP) Processed and screened at [facility] CLINICAL HISTORY: LMP: NO LMP RECORDED Previous abnormal pap: with colp, colposcopy, TESTING LAB LOCATION: [address] [place] [address] COLLECTION SITE: Client: ??[facility] Location: [facility] (W) Specimen (Source) Anatomical Collection Method Collection Time Re ceived Time Location / / Volume Laterality 01/28/2010 01/29/2010 12:2 4 PM CDT Amaris Mariano [facility] Performing Organization Address City/State/ZIP Code Phon e Number [place] documented in this encounter Visit Diagnoses Diagnosis Screening for malignant neoplasm of the cervix - Primary SI (stress incontinence) Female stress incontinence Routine gynecological examination documented in this encounter Care Teams Sales Representative Uniforms Relationship Specialty Start Date End Date Cedric Friedman MD PCP - General 05/30/09 02/21/21 [facility] [address] [facility] [address] [place] [address] documented as of this encounter
--- OUTSIDE RECORDS SUMMARY | 2022-08-04 08:47 | XMS_ITS | Encounter Summary ---
:1965 Author Organization [place] Address [address] [place] [address]. [place] [address] Care Team Providers Name Role Phone Cedric Friedman MD Primary Care Provider Reason for Visit Reason Comments Sinus Problem recheck, no better Cough over 1 week Encounter Details Date Type Department Care Team Description 03/18/2010 Office Visit [facility] Cedric Friedman, Acute Bronchitis (Primary Dx); System in [place] MD Diabetes Mellitus, Type 2 (H) Family Practice [facility] [address] [place], [place] [address] [address] [place], [place] [phone] Social History Tobacco Use Types Packs/Day Years [...] Sign Reading Time Taken Comments Blood Pressure 116/72 03/18/2010 11:17 AM CDT Pulse 88 03/18/2010 11:17 AM CDT Temperature 36.4 ??C (97.6 ??F) 03/18/2010 11:17 AM CDT Respiratory Rate - - Oxygen Saturation - - Inhaled Oxygen Concentration - - Weight 77.6 kg (171 lb 2 oz) 03/18/2010 11:17 AM CDT Height - - Body Mass Index 27.83 01/28/2010 9:50 AM CDT documented in this encounter Progress Notes Cedric Friedman MD - 03/18/2010 11:51 AM CDT Chief Complaint Patient presents with ??? Sinus Problem recheck, no better ??? Cough over 1 week Subjective: Sil is a 44 year old female presenting with nasal drainage and cough symptoms: Location: maxillary Quality: post-nasal drainage Severity: moderate Duration: 1 weeks Timing: onset as cold symptoms that are steadily worsening Modifying Factors: not better with over the counter meds, Claritin, ALBUTEROL HFA inhaler. Associated Symptoms: cough and wheezing. Social History: History Substance Use Topics ??? Tobacco Use: Never ??? Alcohol Use: Yes social Allergies: Allergies Allergen Reactions ??? Percocet (Oxycodone-acetaminophen) Itching ??? Phenergan (Sympathomimetics) Anaphylaxis CONVUSIONS Review of Systems: Constitutional:No fevers, chills, or myalgias. Cardiac:No chest pains or palpitations Respitatory: no hemoptysis Other than noted above, all other pertinant system review is unremarkable. Objective: BP 116/72 Pulse 88 Temp(Src) 97.6 ??F (36.4 ??C) (Temporal) Wt 171 lb 2 oz (77.622 kg) LMP 03/14/2010 General: Patient is well nourished, alert and oriented in no acute distress. Normal mood and affect.Appropiate judgement and insight. Eyes: normal lids and conjunctiva. Sinus: she has no tenderness of her sinuses. Nose: normal Throat:normal Neck: supple without any masses or lymphadenopathy. Normal thyroid. Lungs: normal respiratory effort. Clear to auscultation and percussion throughout. Cardiac: normal S1 and S2 without any murmur, gallops or rubs. Assessment/Plan: 1. Acute Bronchitis (466.0) ZITHROMAX Z-ROLANDO 250 MG PO TABS, GUAIFENESIN-CODEINE 100-10 MG/5ML PO SOLN, PROAIR HFA 108 (90 BASE) MCG/ACT IN AERS 2. Diabetes Mellitus, Type 2 (250.00BC) ONE TOUCH TEST STRIPS TEST - Zithromax - Robitussin with codeine - test strips ordered for her diabetes mellitus. - follow-up if symptoms worsen or fail to improve. - work note written today. documented in this encounter Plan of Treatment Not on filedocumented as of this encounter Visit Diagnoses Diagnosis Acute bronchitis - Primary Diabetes mellitus, type 2 (H) Type II or unspecified type diabetes tori litus without mention of complication, not stated as uncontrolled documented in this encounter Care Teams Fulfillment Coordinator Relationship Specialty Start Date End Date Cedric Friedman MD PCP - General 05/30/09 02/21/[address] [place] [address] documented as of this encounter
--- OUTSIDE RECORDS SUMMARY | 2022-08-04 08:47 | XMS_ITS | Encounter Summary ---
:1965 Author Organization [place] Address [facility] [place] [address] Care Team Providers Name Role Phone Cedric Friedman MD Primary Care Provider Encounter Details Date Type Department Care Team Description 07/30/2010 Orders Only [facility] Mixed Hyp erlipidemia; System in [place] L ab Diabetes Mellitus, Type 2 (H ); [address] [place] [address] Social History Tobacco Use Types Packs/Day [...] Diagnosis Comme nts HCL ALBUMIN URINE Routine 07/30/2010 7:54 AM Diabetes Mellitus , Results for this (INC CREAT) CDT Type 2 (H) procedure are i n the results section. HCL BASIC METABOLIC Routine 07/30/2010 7:51 AM Diabetes Mellit us, Results for this PANEL CDT Type 2 (H) procedure are i n the results section. HCL TSH W/FREE T4 Routine 07/30/2010 7:51 AM Hypothyroidism Re sults for this REFLEX CDT procedure are i n the results section. HCL GLYCATED Routine 07/30/2010 7:51 AM Diabetes Mellitus, Res ults for this HEMOGLOBIN CDT Type 2 (H) procedure are i n the results section. HCL ALT Routine 07/30/2010 7:51 AM Mixed Hyperlipidemia R esults for this CDT procedure are i n the results section. CL AFF A.M.A. LIPID Routine 07/30/2010 7:51 AM Mixed Hyperlipi demia Results for this PANEL CDT procedure are i n the results section. documented in this encounter Results MICROALBUMIN (INC URINE CREAT) (07/30/2010 7:54 AM CDT) athologist Signature Creatinine 127 mg/dL [facility] Urine [facility] Albumin Urine 9 mg/L [facility] mg/L [facility] Albumin Urine 7.09 0 - 20 [facility] mg/g Cr mg/g Cr [facility] Specimen Anatomical Collection Method Collection Time Receive d Time (Source) Location / / Volume Laterality 07/30/2010 7:54 AM 0 7:55 CDT AM CDT Cedric Friedman MD LABORATORY Performing Organization Address City/State/ZIP Code Phon e Number [facility] [address] TSH W/FREE T4 REFLEX (07/30/2010 7:51 AM CDT) athologist Signature TSH 2.71 0.4 - 5.0 [facility] mU/L [facility] Specimen Anatomical Collection Method Collection Time Receive d Time (Source) Location / / Volume Laterality 07/30/2010 7:51 AM 0 7:52 CDT AM CDT Cedric Friedman MD LABORATORY Performing Organization Address City/State/ZIP Code Phon e Number [facility] [address] (ABNORMAL) HEMOGLOBIN A1C (07/30/2010 7:51 AM CDT) athologist Signature Hemoglobin A1C 8.0 (H) 4.3 - 6.0 [facility] % [facility] Specimen Anatomical Collection Method Collection Time Receive d Time (Source) Location / / Volume Laterality 07/30/2010 7:51 AM 0 7:52 CDT AM CDT Cedric Friedman MD LABORATORY Performing Organization Address City/State/ZIP Code Phon e Number [facility] [address] (ABNORMAL) A.M.A. BASIC METABOLIC PANEL (07/30/2010 7:51 AM CDT) P athologist Signature Sodium 141 133 - 144 [facility] mmol/L [facility] Potassium 4.3 3.4 - 5.3 [facility] mmol/L [facility] Chloride 104 94 - 109 [facility] mmol/L [facility] Carbon Dioxide 28 20 - 32 [facility] mmol/L [facility] Anion Gap 9 6 - 17 [facility] mmol/L [facility] Glucose 178 (H) 60 - 99 [facility] mg/dL [facility] Comment: Non Fasting Urea Nitrogen 11 5 - 24 mg/dL [facility] Creatinine 0.82 0.52 - 1.04 mg/dL [facility] Comment: New IDMS-traceable calibration beginning 03/16/08 GFR Estimate 76 >60 mL/min/1.7m2 [facility] GFR Estimate If Black >90 >60 mL/min/1.7m2 [facility] Calcium 9.6 8.5 - 10.4 mg/dL [facility] Specimen Anatomical Collection Method Collection Time Receive d Time (Source) Location / / Volume Laterality 07/30/2010 7:51 AM 0 7:52 CDT AM CDT Cedric Friedman MD LABORATORY Performing Organization Address City/State/ZIP Code Phon e Number [facility] [address] (ABNORMAL) ALANINE AMINO (ALT) (SGPT) (07/30/2010 7:51 AM CDT) P athologist Signature ALT 83 (H) 0 - 50 U/L [facility] Specimen Anatomical Collection Method Collection Time Receive d Time (Source) Location / / Volume Laterality 07/30/2010 7:51 AM 0 7:52 CDT AM CDT Cedric Friedman MD LABORATORY Performing Organization Address City/[facility]/ZIP Code Phon e Number [facility] [address] (ABNORMAL) A.M.A. LIPID PANEL (07/30/2010 7:51 AM CDT) P athologist Signature Cholesterol 186 0 - 200 [facility] mg/dL [facility] Comment: LDL Cholesterol is the primary guide to therapy. The NCEP recommends further evaluation of: patients with cholesterol <200 mg/dL if additional risk factors are present, cholesterol >240 mg/dL, triglycerides >150 mg/dL, or HDL <40 mg/dL. Triglycerides 259 (H) 0 - 150 mg/dL [facility] Comment: Non Fasting HDL Cholesterol 49 (L) 50 - 110 mg/dL [facility] LDL Cholesterol Calculated 85 0 - 129 mg/dL [facility] Comment: LDL Cholesterol is the primary guide to therapy: LDL-cholesterol goal in high risk patients is <100 mg/dL and in very high risk patients is <70 mg/dL. VLDL-Cholesterol 52 (H) 0 - 30 mg/dL [facility] Cholesterol/HDL Ratio 3.8 0.0 - 5.0 [facility] Specimen Anatomical Collection Method Collection Time Receive d Time (Source) Location / / Volume Laterality 07/30/2010 7:51 AM 0 7:52 CDT AM CDT Cedric Friedman MD LABORATORY Performing Organization Address City/[facility]/ZIP Code Phon e Number [facility] [address] documented in this encounter Visit Diagnoses Diagnosis Mixed hyperlipidemia Diabetes mellitus, type 2 (H) Type II or unspecified type diabetes tori litus without mention of complication, not stated as uncontrolled Hypothyroidism Unspecified hypothyroidism documented in this encounter Care Teams Wireless Telegrapher Relationship Specialty Start Date End Date Cedric Friedman MD PCP - General 05/30/09 02/21/21 [facility] [place] [address] [place] [address] documented as of this encounter
--- OUTSIDE RECORDS SUMMARY | 2022-08-04 08:47 | XMS_ITS | Encounter Summary ---
:1965 Author Organization [place] Address [address] [place] [address] Care Team Providers Name Role Phone Cedric Friedman MD Primary Care Provider Sushma Jamison MD Primary Care Provider Unavailable Encounter Details Date Type Department Care Team Description 03/11/2010 [facility] in [facility] Amaris mcgovern NP [facility] [address] [place] [address] [address] [place], [place] [address] (Wo rk) Social History Tobacco Use Types [...] on filedocumented in this encounter Care Teams Senior Payroll Administrator Relationship Specialty Start Date End Date Cedric Friedman MD PCP - General 05/30/09 02/21/21 [facility] [address] [facility] [address] [place] [address] Sushma Jamison MD PCP - General Family Medicine 02/22/21 [address] [place] [address] documented as of this encounter
--- OUTSIDE RECORDS SUMMARY | 2022-08-04 08:47 | XMS_ITS | Encounter Summary ---
:1965 Author Organization [place] Address [address] [facility] [place] [address] Care Team Providers Name Role Phone Cedric Friedman MD Primary Care Provider Reason for Visit Reason Onset Date Comments Triage 06/24/2010 skin problems contin ued. Encounter Details Date Type Department Care Team Description 06/24/2010 Telephone [facility] Rahul Rae, director of emergency nursing (skin problems System in [address] continued. ) Family Practice [address] [place] [address] [place] [address] Social History Tobacco Use Types [...] Telephone Encounter - Salma Rae RN - 06/24/2010 10:53 AM CDT Still having in skin problems has tried selsum blue would like to try something else as she has usedselsum blue x [address] roach ordered ketoconozole cream for 3 to 4 wks. documented in this encounter Plan of Treatment Not on filedocumented as of this encounter Visit Diagnoses Not on filedocumented in this encounter Care Teams Certified Dietary Manager Relationship Specialty Start Date End Date Cedric Friedman MD PCP - General 05/30/09 02/21/[address] [place] [address] documented as of this encounter
--- OUTSIDE RECORDS SUMMARY | 2022-08-04 08:47 | XMS_ITS | Encounter Summary ---
:1965 Author Organization [place] Address [facility] [place] [address] Care Team Providers Name Role Phone Cedric Friedman MD Primary Care Provider Encounter Details Date Type Department Care Team Description 03/21/2010 Results Only [facility] Aime Pablo MD in [address] [place] [address] [address] [place] [address] [place] [address] [phone] (Wo rk) Social History Tobacco Use Types [...] Procedure Name Priority Date/Time Associated Comments Diagnosis HC CHEST TWO VIEWS, Routine 03/21/2010 1:56 PM Re sults for this FRONT/LAT CDT procedure are i n the results section. HCL TROPONIN I STAT 03/21/2010 1:08 PM Results for this CDT procedure are i n the results section. CL AFF PROTHROMBIN STAT 03/21/2010 1:08 PM Res ults for this TIME CDT procedure are i n the results section. CL AFF D-DIMER QUANT STAT 03/21/2010 1:08 PM R esults for this CDT procedure are i n the results section. CL AFF CBC WITH STAT 03/21/2010 1:08 PM Result s for this PLATELETS, DIFF CDT procedure ar e in the results section. HCL COMPREHENSIVE STAT 03/21/2010 1:08 PM Resu lts for this METABOLIC PANEL CDT procedure ar e in the results section. HCL LIPASE STAT 03/21/2010 1:08 PM Results f or this CDT procedure are i n the results section. CL AFF PTT THROMBOPLAS STAT 03/21/2010 1:08 PM Results for this TIME PARTIAL CDT procedure are i n the results section. HCL HCG URINE QUAL STAT 03/21/2010 12:45 Resul ts for this PM CDT procedure are i n the results section. HCL URINE MACROSCOPIC Routine 03/21/2010 12:40 Re sults for this REFLEX PM CDT procedure are i n the results section. documented in this encounter Results CHEST X-RAY 2 VW (03/21/2010 1:56 PM CDT) Specimen (Source) Anatomical Collection Method Collection Time Re ceived Time Location / / Volume Laterality 03/21/2010 1:56 PM CDT Impressions RADIOLOGY RESULTS - 03/21/2010 3:05 PM C DT CHEST TWO VIEW* ??March 21, 2010 1:56:00 PM HISTORY: Chest pain. COMPARISON: None. FINDINGS: Negative. Aime Pablo MD GENERAL IMAGING Performing Organization Address City/[facility]/ZIP Code Phon e Number RADIOLOGY RESULTS TROPONIN I (03/21/2010 1:08 PM CDT) P athologist Signature Troponin I ES <0.012 0.000 - [facility] 0.034 ug/L [facility] Specimen Anatomical Collection Method Collection Time Receive d Time (Source) Location / / Volume Laterality 03/21/2010 1:08 PM 0 1:39 CDT PM CDT Aime Pablo MD LABORATORY Performing Organization Address City/State/ZIP Code Phon e Number [facility] [address] PTT THROMBOPLAS TIME PARTIAL (03/21/2010 1:08 PM CDT) P athologist Signature PTT 30 22 - 37 sec [facility] Specimen Anatomical Collection Method Collection Time Receive d Time (Source) Location / / Volume Laterality 03/21/2010 1:08 PM 0 1:39 CDT PM CDT Aime Pablo MD LABORATORY Performing Organization Address City/State/ZIP Code Phon e Number [facility] [address] PROTHROMBIN TIME (03/21/2010 1:08 PM CDT) P athologist Signature INR 0.97 0.86 - 1.14 [facility] Specimen Anatomical Collection Method Collection Time Receive d Time (Source) Location / / Volume Laterality 03/21/2010 1:08 PM 0 1:39 CDT PM CDT Aime Pablo MD LABORATORY Performing Organization Address City/[facility]/ZIP Code Phon e Number [facility] [address] FIBRIN DEGRADATION PRODUCTS, D-DIMER; QUANTITATIVE (03/21/2010 1:08 PM CDT) P athologist Signature D Dimer 0.2 0.0 - 0.50 [facility] ug/ml FEU [facility] Specimen Anatomical Collection Method Collection Time Receive d Time (Source) Location / / Volume Laterality 03/21/2010 1:08 PM 0 1:39 CDT PM CDT Aime Pablo MD LABORATORY Performing Organization Address City/State/ZIP Code Phon e Number [facility] [address] LIPASE (03/21/2010 1:08 PM CDT) P athologist Signature Lipase 52 20 - 250 [facility] U/L [facility] Specimen Anatomical Collection Method Collection Time Receive d Time (Source) Location / / Volume Laterality 03/21/2010 1:08 PM 0 1:11 CDT PM CDT Aime Pablo MD LABORATORY Performing Organization Address City/State/ZIP Code Phon e Number [facility] [address] (ABNORMAL) A.M.A. COMPREHENSIVE MET.PANEL (03/21/2010 1:08 PM CDT) P athologist Signature Sodium 139 133 - 144 [facility] mmol/L [facility] Potassium 4.2 3.4 - 5.3 [facility] mmol/L [facility] Chloride 104 94 - 109 [facility] mmol/L [facility] Carbon Dioxide 29 20 - 32 [facility] mmol/L [facility] Anion Gap 6 6 - 17 [facility] mmol/L [facility] Glucose 98 60 - 99 [facility] mg/dL [facility] Urea Nitrogen 11 5 - 24 [facility] mg/dL [facility] Creatinine 0.76 0.52 - [facility] 1.04 mg/dL [facility] Comment: New IDMS-traceable calibration beginning 03/16/08 GFR Estimate 83 >60 mL/min/1.7m2 [facility] R ED [facility] GFR Estimate If Black >90 >60 mL/min/1.7m2 [facility] Calcium 9.4 8.5 - 10.4 mg/dL [facility] Bilirubin Total 0.4 0.2 - 1.3 mg/dL [facility] Albumin 4.5 3.9 - 5.1 g/dL [facility] Protein Total 8.1 6.8 - 8.8 g/dL [facility] Alkaline Phosphatase 118 40 - 150 U/L [facility] RED [facility] ALT 88 (H) 0 - 50 U/L [facility] AST 80 (H) 0 - 45 U/L [facility] Specimen Anatomical Collection Method Collection Time Receive d Time (Source) Location / / Volume Laterality 03/21/2010 1:08 PM 0 1:11 CDT PM CDT Aime Pablo MD LABORATORY Performing Organization Address City/State/ZIP Code Phon e Number [facility] [place], [place] [address] CBC WITH PLATELETS, DIFF (03/21/2010 1:08 PM CDT) Patholo gist Method Time Signature WBC 7.2 4.0 - [facility] 11.0 [facility] 10e9/L RBC Count 4.89 3.8 - 5.2 [facility] 10e12/L [facility] Hemoglobin 13.1 11.7 - [facility] 15.7 g/dL [facility] Hematocrit 39.1 35.0 - [facility] 47.0 % [facility] MCV 80 78 - 100 [facility] fl [facility] MCH 26.8 26.5 - [facility] 33.0 pg [facility] MCHC 33.5 31.5 - [facility] 36.5 g/dL [facility] RDW 13.5 10.0 - [facility] 15.0 % [facility] Platelet Count 273 150 - 450 [facility] 10e9/L [facility] Diff Method Automated [facility] Method [facility] % Neutrophils 60 40 - 75 % [facility] % Lymphocytes 33 20 - 48 % [facility] % Monocytes 6 0 - 12 % [facility] % Eosinophils 1 0 - 6 % [facility] % Basophils 0 0 - 2 % [facility] Absolute 4.3 1.6 - 8.3 [facility] Neutrophil 10e9/L [facility] Absolute 2.4 0.8 - 5.3 [facility] Lymphocytes 10e9/L [facility] Absolute 0.4 0.0 - 1.3 [facility] Monocytes 10e9/L [facility] Absolute 0.1 0.0 - 0.7 [facility] Eosinophils 10e9/L [facility] Absolute 0.0 0.0 - 0.2 [facility] Basophils 10e9/L [facility] Specimen Anatomical Collection Method Collection Time Receive d Time (Source) Location / / Volume Laterality 03/21/2010 1:08 PM 0 1:11 CDT PM CDT Aime Pablo MD LABORATORY Performing Organization Address City/State/ZIP Code Phon e Number [facility] [address] HCG QUAL URINE (03/21/2010 12:45 PM CDT) [facility] Method Time Signature HCG Qual Negative NEG [facility] Urine This test provides a presum ptive diagnosis of or non-. A [facility] confirmed diagnosis should only be made by a ph ysician after all clinical and laboratory findings have been evaluated. Specimen Anatomical Collection Method Collection Time Receive d Time (Source) Location / / Volume Laterality 03/21/2010 12:45 03/21/2010 1:26 PM CDT PM CDT Aime Pablo MD LABORATORY Performing Organization Address City/[facility]/ZIP Code Phon e Number [facility] [address] (ABNORMAL) URINE MACROSCOPIC REFLEX (03/21/2010 12:40 PM CDT) [facility] Method Time Signature Color Urine Straw [facility] Appearance Urine Clear [facility] Glucose Urine Negative NEG mg/dL [facility] Bilirubin Urine Negative NEG [facility] Ketones Urine Negative NEG mg/dL [facility] Specific [place] 1.005 1.003 - [facility] Urine 1.035 [facility] Blood Urine Small (A) NEG [facility] pH Urine 5.0 5.0 - 7.0 [facility] pH [facility] Protein Albumin Negative NEG mg/dL [facility] Urine [facility] Urobilinogen Normal 0.0 - 2.0 [facility] mg/dL mg/dL [facility] Nitrite Urine Negative NEG [facility] Leukocyte Negative NEG [facility] Esterase Urine [facility] Source Midstream [facility] Urine [facility] RBC Urine <1 0 - 2 [facility] /HPF [facility] WBC Urine <1 0 - 2 [facility] /HPF [facility] Bacteria Urine Few (A) NEG /HPF [facility] Squamous <1 0 - 1 [facility] Epithelial /HPF /HPF [facility] Urine Specimen Anatomical Collection Method Collection Time Receive d Time (Source) Location / / Volume Laterality 03/21/2010 12:40 03/21/2010 PM CDT 12:45 PM CDT Aime Pablo MD LABORATORY Performing Organization Address [facility]/ZIP Code Phon e Number [facility] [address] documented in this encounter Visit Diagnoses Not on filedocumented in this encounter Care Teams Turntable Man Relationship Specialty Start Date End Date Cedric Friedman MD PCP - General 05/30/09 02/21/21 [facility] Arsh [place] [address] [facility] [address] [place] [address] documented as of this encounter
--- OUTSIDE RECORDS SUMMARY | 2022-08-04 08:47 | XMS_ITS | Encounter Summary ---
:1965 Author Organization [place] Address [facility] [place] [address] Care Team Providers Name Role Phone Cedric Friedman MD Primary Care Provider Reason for Visit Reason Comments Diabetes getting diarrhea and N&V fro m new medication Encounter Details Date Type Department Care Team Description 07/26/2010 Office Visit [facility] Norma Beasley; System in [place] M, DO Myalgias; Family Practice [facility] Diabetes Mellitus, Type 2 (H); [address] [place] [address] Hypothyroidism [place], [place] [address] [address] [place], [place] [phone] [id number] Social History Tobacco Use Types Packs/Day Years [...] Reading Time Taken Comments Blood Pressure 112/74 07/26/2010 3:25 PM CDT Pulse 68 07/26/2010 3:25 PM CDT Temperature 36.5 ??C (97.7 ??F) 07/26/2010 3:25 PM CDT Respiratory Rate - - Oxygen Saturation - - Inhaled Oxygen Concentration - - Weight 78.3 kg (172 lb 11.2 oz) 07/26/2010 3:25 PM CDT Height - - Body Mass Index 28.09 01/28/2010 9:50 AM CDT documented in this encounter Progress Notes Norma Beasley, - 07/26/2010 4:34 PM CDT DIABETES:The patient has a history of diabetes mellitus of moderate severity and long standing duration with no acute modifying factors. No polyuria, polydipsia, blurry vision, chest pain, dyspnea, dysesthesia or claudication. Follows diet as prescribed, performs home glucose monitoring regularly. Present therapy includes nothing as metformin was causing severe vomiting and diarrhea. Patient reports b lood sugars have been ranging between 120 and 160. Last glyco A1c was A1C 7.1 10/04/2009 S: Sil is a 44 year old female presenting with a 1 year history of moderate fatigue. Denies excess snoring or apnea reports from other family members. Reports heavy menses. Denies excessive nsaid use, abdominal pain or melana. Reports heat or cold intolerance. Reports difficulty with weight loss. Denies family history of thyroid problems. Reports problems with concentration. Reports anhedonia. Reports depressed or excessive moodiness. OBJECTIVE: BP 112/74 Pulse 68 Temp(Src) 97.7 ??F (36.5 ??C) (Temporal) Wt 172 lb 11.2 oz (78.336 kg). GENERAL APPEARANCE: Alert, no acute distress. ASSESSMENT: 1. Fatigue (780.79B) VITAMIN D DEFICIENCY SCREENING, A.M.A. BASIC METABOLIC PANEL, VITAMIN B12, SERUM, FOLATE, SERUM, CBC WITH PLATELETS, FERRITIN 2. Myalgias (729.1M) 3. Diabetes Mellitus, Type 2 (250.00BC) HEMOGLOBIN A1C, VENOUS COLLECTION, A.M.A. BASIC METABOLIC PANEL, glyBURIDE (DIABETA / MICRONASE) 5 MG tablet, sitagliptan (JANUVIA) 100 MG tablet 4. Hypothyroidism (244.9Y) TSH W/FREE T4 REFLEX I recommended januvia, but she will check the cost and, if too expensive, will use glyburide. Concerned about fibromyalgia, so basic labs tested; if they are normal, will follow up to discuss this further. follow up for lack of improvement or new concerns Total time spent with patient: 20 minutes. Counseling time: 20 minutes. documented in this encounter Plan of Treatment Not on filedocumented as of this encounter Procedures Procedure Name Priority Date/Time Associated Diagnosis Comme [facility] VENOUS COLLECTION Routine 07/26/2010 3:45 PM CDT Diabetes M ellitus, Type 2 (H) documented in this encounter Visit Diagnoses Diagnosis Fatigue Other malaise and fatigue Myalgias Mylagia and myositis, unspecified Diabetes mellitus, type 2 (H) Type II or unspecified type diabetes tori litus without mention of complication, not stated as uncontrolled Hypothyroidism Unspecified hypothyroidism documented in this encounter Care Teams Mortgage Processing Manager Relationship Specialty Start Date End Date Cedric Friedman MD PCP - General 05/30/09 02/21/[address] [place] [address] documented as of this encounter
--- OUTSIDE RECORDS SUMMARY | 2022-08-04 08:48 | XMS_ITS | Encounter Summary ---
:1965 Author Organization [place] Address [facility] [place] [address] Care Team Providers Name Role Phone Yvrose Cox MD Primary Care Provider Reason for Visit Reason Comments Sick nasal drainage,coughing Encounter Details Date Type Department Care Team Description 11/20/2009 Office Visit [facility] Yvrose Cox, Acute Upper System in [place] MD Respiratory Infections Family Practice [facility] [place] of Unspecified Site [address] (Primary Dx) [place], [place] [address] [address] [place], [place] [phone] [id number] Social History Tobacco Use Types Packs/Day Years Used Date Never Smoker Alcohol Use Standard Drinks/Week Comments Not Asked 0 (1 standard drink = 0.6 oz pure alcoho l) Sex Assigned at Date Recorded Not on file documented as of this encounter Last Filed Vital Signs Vital Sign Reading Time Taken Comments Blood Pressure 110/80 11/20/2009 11:25 AM SHADOWGRAPH OPERATOR Pulse 92 11/20/2009 11:25 AM SHADOWGRAPH OPERATOR Temperature 36.3 ??C (97.4 ??F) 11/20/2009 11:25 AM SHADOWGRAPH OPERATOR Respiratory Rate - - Oxygen Saturation - - Inhaled Oxygen Concentration - - Weight 78.3 kg (172 lb 9.6 oz) 11/20/2009 11:25 AM SHADOWGRAPH OPERATOR Height 165.7 cm (5' 5.25) 11/20/2009 11:25 AM SHADOWGRAPH OPERATOR Body Mass Index 28.5 11/20/2009 11:25 AM SHADOWGRAPH OPERATOR documented in this encounter Progress Notes Yvrose Cox MD - 11/20/2009 12:12 PM CST Chief Complaint Patient presents with ??? Sick nasal drainage,coughing Subjective: Sil is a 44 year old female presenting with sinus and cough symptoms: Location: forehead and chest Quality: nasal congestion and harsh cough Severity: moderate Duration: 2 days Timing: onset as cold symptoms that are steadily worsening Modifying Factors: not better with over the counter meds Associated Symptoms: sore throat, sinus pressure and productive cough Medications marked Taking as of 11/20/09 encounter (Office Visit) with YVROSE COX.: SIMVASTATIN 40 MG OR TABS 1 TABLET AT BEDTIME Disp: 30 Rfl: 5 SYNTHROID 50 MCG OR TABS 1 TABLET DAILY Disp: 30 Rfl: 5 METFORMIN HCL# 500 MG (OSM) OR SR 24HR 2 TABLETS DAILY Disp: 60 Rfl: 12 PROAIR HFA 108 (90 BASE) MCG/ACT IN AERS INHALE 1 TO 2 PUFFS EVERY 4 TO 6 HOURS NEEDED Disp: 1 Rfl: 0 Social History: History Substance Use Topics ??? Tobacco Use: Never ??? Alcohol Use: Not on file Allergies: Allergies Allergen Reactions ??? Percocet (Oxycodone-acetaminophen) Itching ??? Phenergan (Sympathomimetics) Anaphylaxis CONVUSIONS Review of Systems: Constitutional:No fevers, chills, or myalgias. Cardiac:No chest pains or palpitations Respitatory: no hemoptysis or shortness of breath Other than noted above, all other pertinant system review is unremarkable. Objective: BP 110/80 Pulse 92 Temp (Src) 97.4 ??F (36.3 ??C) (Temporal) Ht 5' 5.25 (1.657 m) Wt 172 lb 9.6 oz (78.291 kg) General: Patient is well nourished, alert and oriented in no acute distress. Normal mood and affect.Appropiate judgement and insight. Eyes: normal lids and conjunctiva. Sinus: she has no tenderness of maxillary region. Nose: abnormal with nasal congestion and purulent rhinorrhea Throat:normal Neck: supple without any masses or lymphadenopathy. Normal thyroid. Lungs: normal respiratory effort. Clear to auscultation and percussion throughout. Cardiac: normal S1 and S2 without any murmur, gallops or rubs. Assessment/Plan: Encounter Diagnoses Code Name Primary? Qualifier ??? 465.9 Acute Upper Respiratory Infections of Unspecified Site Yes Plan: PROAIR HFA 108 (90 BASE) MCG/ACT IN AERS, ROBITUSSIN A-C 10-100 MG/5ML OR SYRP - suspect viral - new diagnosis - Sudafed, Afrin, Michelle pot - ALBUTEROL HFA inhaler and Robitussin-AC - follow-up if symptoms worsen or fail to improve. - if not improved in 1 week, consider antibiotics. OWGRAPH OPERATOR documented in this encounter Plan of Treatment Not on filedocumented as of this encounter Visit Diagnoses Diagnosis Acute upper respiratory infections of un specified site - Primary documented in this encounter Care Teams Managing Consultant Relationship Specialty Start Date End Date Yvrose Cox MD PCP - General 05/30/09 02/21/[address] [place] [address] documented as of this encounter
--- OUTSIDE RECORDS SUMMARY | 2022-08-04 08:48 | XMS_ITS | Encounter Summary ---
:1965 Author Organization [place] Address [facility] [address] Care Team Providers Name Role Phone Cedric Friedman MD Primary Care Provider Reason for Visit Reason Comments Sick cough, bodyaches, sore throa t for 6d, Encounter Details Date Type Department Care Team Description 09/14/2009 Office Visit [facility] Abdifatah Guidry, Bronchi tis with System in [place] ANAHI Bronchospasm (Primary Family Practice [facility] [place] Dx) [address] [place] [address] [place], [place] [address] [address] [place], [place] [phone] Social History Tobacco Use Types Packs/Day Years Used Date Never Smoker Alcohol Use Standard Drinks/Week Comments Not Asked 0 (1 standard drink = 0.6 oz pure alcoho l) Sex Assigned at Date Recorded Not on file documented as of this encounter Last Filed Vital Signs Vital Sign Reading Time Taken Comments Blood Pressure 128/76 09/14/2009 10:32 AM CDT Pulse 68 09/14/2009 10:32 AM CDT Temperature 36.8 ??C (98.2 ??F) 09/14/2009 10:32 AM CDT Respiratory Rate - - Oxygen Saturation - - Inhaled Oxygen Concentration - - Weight 78.3 kg (172 lb 9.6 oz) 09/14/2009 10:32 AM CDT Height - - Body Mass Index 28.29 05/25/2009 1:39 PM CDT documented in this encounter Patient Instructions Patient InstructionsAbdifatah Guidry PA-C - 09/14/2009 10:41 AM CDT Take medication as prescribed. Side effects of medication explained to patient and understood. The patient was instructed to return to clinic if symptoms worsen or fail to improve. documented in this encounter Progress Notes Abdifatah Guidry PA-C - 09/14/2009 10:51 AM CDT S: Sil presents with moderate cough which has been present for several days. Cough is occasionally productive. Symptoms are continuing to worsen despite the use of OTC medication. Denies shortness of breath or significant wheezing. Denies fever, chills or sweats. Allergies: as noted in epic. Allergies: Percocet and Phenergan O: Vitals: as charted General: Patient is well nourished, alert and oriented in no acute distress. Normal mood and affect. Sinus: negative tenderness noted. Eyes are normal. PERRLA, corneas and conjunctivae normal. Fundi are normal, no papilledema, hemorrhages or exudates. No AV crossing changes. Ears: normal tympanic membranes and extra-auditory canals. [...] No carotid bruits. No edema or cyanosis. A: Bronchitis P: Medication per Epic. Follow up if not improved with treatment or if any significant worsening of symptoms. Side effects of medication explained to patient and understood.\ documented in this encounter Plan of Treatment Not on filedocumented as of this encounter Visit Diagnoses Diagnosis Bronchitis with bronchospasm - Primary Acute bronchitis documented in this encounter Care Teams Drying Rack Changer Relationship Specialty Start Date End Date Cedric Friedman MD PCP - General 05/30/09 02/21/21 [facility] [place] [address] [place] [address] documented as of this encounter
--- OUTSIDE RECORDS SUMMARY | 2022-08-04 08:48 | XMS_ITS | Encounter Summary ---
:1965 Author Organization [place] Address [facility]0 [facility] [address] Care Team Providers Name Role Phone Cedric Friedman MD Primary Care Provider Sushma Jamison MD Primary Care Provider Unavailable Encounter Details Date Type Department Care Team Description 12/18/2009 [facility] in Gigi Espinoza MD [facility] [address] [place] [address] [place] [address] [phone] (Wo rk) Social History Tobacco Use Types [...] on filedocumented in this encounter Care Teams Sugar Mixer Relationship Specialty Start Date End Date Cedric Friedman MD PCP - General 05/30/09 02/21/21 [facility] [address] [place] [address] Sushma Jamison MD PCP - General Family Medicine 02/22/21 [address] [place] [address] documented as of this encounter
--- OUTSIDE RECORDS SUMMARY | 2022-08-04 08:48 | XMS_ITS | Encounter Summary ---
:1965 Author Organization [place] Address [address] [place] [address]. [place] [address] Care Team Providers Name Role Phone Unavailable Primary Care Provider Unavailable Reason for Visit Reason Comments Establish Care discuss meds; hx of diabetes , hypothyroid, hyperlipidema Encounter Details Date Type Department Care Team Description 05/25/2009 Office Visit [facility] Yvrose Cox Diabe carolann Mellitus, Type 2 (H) (Primary Dx); System in [place] MD Mixed Hyperlipidemia; Family Practice [facility] [place] Hypothyroidism; [address] [place] [address] Cellulitis [place], [place] [address] [address] [place], [place] [phone] Social History Tobacco Use Types Packs/Day Years Used Date Never Smoker Alcohol Use Standard Drinks/Week Comments Not Asked 0 (1 standard drink = 0.6 oz pure alcoho l) Sex Assigned at Date Recorded Not on file documented as of this encounter Last Filed Vital Signs Vital Sign Reading Time Taken Comments Blood Pressure 98/72 05/25/2009 1:39 PM CDT Pulse 68 05/25/2009 1:39 PM CDT Temperature 36.5 ??C (97.7 ??F) 05/25/2009 1:39 PM CDT Respiratory Rate - - Oxygen Saturation - - Inhaled Oxygen Concentration - - Weight 76.9 kg (169 lb 9.6 oz) 05/25/2009 1:39 PM CDT Height 166.4 cm (5' 5.5) 05/25/2009 1:39 PM CDT Body Mass Index 27.79 05/25/2009 1:39 PM CDT documented in this encounter Progress Notes Yvrose Cox MD - 05/25/2009 2:02 PM CDT Chief Complaint: Chief Complaint Patient presents with ??? Establish Care discuss meds; hx of diabetes, hypothyroid, hyperlipidema HYPERLIPIDEMIA:The patient has a history of hyperlipidemia of moderate severity and long standing duration. Patient has attempted cholesterol lowering measures in her diet. Last cholesterol tests were done in [place]. She is here to establish care. She is with 2 kids. She moved here from [place], [place]. DIABETES:The patient has a history of diabetes mellitus of moderate severity and long standing duration with no acute modifying factors. No polyuria, polydipsia, blurry vision, chest pain, dyspnea, dysesthesia or claudication. She doesn't follow diet as prescribed or performs home glucose monitoring regularly. Present therapy includes Metformin. Patient reports blood sugars have been ranging between 90 and 140. Last glyco A1c was unknown. HYPOTHYROIDISM: The patient has a history of hypothyroidism of moderate severity and long standing duration. The patient is presently taking medication and denies symptoms of fatigue, palpitations, heat or cold intolerance, weight gain of loss, or change in bowl habits. Patient denies any modifying factors. Last TSH: No results found for this basename: Tsh:1. She also scratched her upper chest a couple of days ago in the shower. Just today, it has become red, warm, and mildly painful. No drainage or fevers. She hasn't tried any treatment yet for it. Patient Active Problem List Diagnoses Code ??? Diabetes Mellitus, Type 2 250.00BC ??? Hypothyroidism 244.9Y Past Medical History Diagnosis Date ??? Hypothyroidism 2008 ??? Diabetes Mellitus 2004 ??? Hyperlipidemia 2008 Past Surgical History Procedure Date ??? C-sec+ care,prev c-sec X2- 1986 and 2006 Medications marked Taking as of 05/25/09 encounter (Office Visit) with YVROSE COX: SIMVASTATIN 40 MG OR TABS 1 TABLET AT BEDTIME Disp: Rfl: SYNTHROID 50 MCG OR TABS 1 TABLET DAILY Disp: Rfl: METFORMIN HCL# 500 MG (OSM) OR SR 24HR 2 TABLETS DAILY Disp: Rfl: Allergies Allergen Reactions ??? Percocet (Oxycodone-acetaminophen) Itching ??? Phenergan (Sympathomimetics) Anaphylaxis CONVUSIONS History Substance Use Topics ??? Tobacco Use: Never ??? Alcohol Use: Not on file Family History Problem Relation ??? Hypertension Mother Review Of Systems (other than mentioned above) Constitutional: negative Ears/Nose/Throat: negative Respiratory: negative Cardiovascular: negative Gastrointestinal: negative PHYSICAL EXAMINATION: Blood pressure 98/72, pulse 68, temperature 97.7 ??F (36.5 ??C), temperature source Temporal, height5' 5.5 (1.664 m), weight 169 lb 9.6 oz (76.93 kg), last menstrual period 04/27/2009. General: Patient is well nourished, alert and [...] and non-tender. No palpable masses or hepatosplenomegaly. SKin: excoriation in a linear pattern on her upper chest. Surrounding erythema, increased warmth, raised skin. ASSESSMENT/PLAN: Encounter Diagnoses Code Name Primary? Qualifier ??? 250.00BC Diabetes Mellitus, Type 2 Yes Plan: VENOUS COLLECTION, A.M.A. BASIC METABOLIC PANEL, HEMOGLOBIN A1C, FOOT EXAM, MICROALBUMIN (INCURINE CREAT) ??? 272.2 Mixed Hyperlipidemia Plan: VENOUS COLLECTION, A.M.A. LIPID PANEL, ALANINE AMINO (ALT) (SGPT), SIMVASTATIN 40 MG OR TABS ??? 244.9Y Hypothyroidism Plan: VENOUS COLLECTION, TSH W/FREE T4 REFLEX, SYNTHROID 50 MCG OR TABS ??? 682.9M Cellulitis Plan: KEFLEX 500 MG OR CAPS Keflex started for cellulitis. Chronic medical problems are stable at this time. The current medical regimen is effective; continuepresent plan and medications. Follow up 3 months. Meds refilled. Future labs ordered. documented in this encounter Plan of Treatment Not on filedocumented as of this encounter Visit Diagnoses Diagnosis Diabetes mellitus, type 2 (H) - Primary Type II or unspecified type diabetes tori litus without mention of complication, not stated as uncontrolled Mixed hyperlipidemia Hypothyroidism Unspecified hypothyroidism Cellulitis Cellulitis and abscess of unspecified si te documented in this encounter
--- OUTSIDE RECORDS SUMMARY | 2022-08-04 08:48 | XMS_ITS | Encounter Summary ---
:1965 Author Organization [place] Address [facility] [place] [address] Care Team Providers Name Role Phone Yvrose Cox MD Primary Care Provider Reason for Visit Reason Comments Sick Has been ill with loose stoo ls and nausea and cramping after eating for over 1 week Encounter Details Date Type Department Care Team Description 08/21/2009 Office Visit [facility] Yvrose Cox, Mixed Hyperlipidemia (Primary Dx); System in [place] MD Hypothyroidism; Family Practice [facility] Arsh Villatoro Acute Diarrhea; [address] [place] [address] Diabetes Mellitus, Type 2 (H ) [place] [address] [address] [place] [phone] [id number] Social History Tobacco Use Types Packs/Day Years Used Date Never Smoker Alcohol Use Standard Drinks/Week Comments Not Asked 0 (1 standard drink = 0.6 oz pure alcoho l) Sex Assigned at Date Recorded Not on file documented as of this encounter Last Filed Vital Signs Vital Sign Reading Time Taken Comments Blood Pressure 110/80 08/21/2009 10:16 AM CDT Pulse 88 08/21/2009 10:16 AM CDT Temperature 36.4 ??C (97.5 ??F) 08/21/2009 10:16 AM CDT Respiratory Rate - - Oxygen Saturation - - Inhaled Oxygen Concentration - - Weight 77.6 kg (171 lb) 08/21/2009 10:16 AM CDT Height - - Body Mass Index 28.02 05/25/2009 1:39 PM CDT documented in this encounter Progress Notes Yvrose Cox MD - 08/21/2009 10:26 AM CDT Chief Complaint Patient presents with ??? Sick Has been ill with loose stools and nausea and cramping after eating for over 1 week Subjective: Sil Power is a 43 year old female with complaint of gastrointestinal symptoms of cramping, diarrhea and nausea for over 7 days. No blood in stool. Symptoms started on the day of her trip to [place]. She denies any recent antibiotics. She denies any ill contacts. She still feels nervous. She doeshave a touchy stomach at baseline and had a negative workup in the past. Symptoms are worse with eating. Medications marked Taking as of 08/21/09 encounter (Office Visit) with YVROSE COX: METFORMIN HCL# 500 MG (OSM) OR SR 24HR 2 TABLETS DAILY Disp: Rfl: SIMVASTATIN 40 MG OR TABS 1 TABLET AT BEDTIME Disp: 30 Rfl: 2 SYNTHROID 50 MCG OR TABS 1 TABLET DAILY Disp: 30 Rfl: 2 Past Medical History Diagnosis Date ??? Hypothyroidism 2008 ??? Diabetes Mellitus 2004 ??? Hyperlipidemia 2007 ROS: GEN: negative for fevers. GI: see above. negative for blood in stool. Objective:Blood pressure 110/80, pulse 88, temperature 97.5 ??F (36.4 ??C), temperature source Temporal, weight 171 lb (77.565 kg). Physical exam reveals the patient appears well. Hydration status: well hydrated. Abdomen: abdomen issoft without significant tenderness, masses, organomegaly or guarding. Chest wall normal to inspection and palpation. Good excursion bilaterally. Lungs clear to auscultation. Good air movement bilaterally without rales, wheezes, or rhonchi. Regular rate and rhythm. S1 andS2 normal, no murmurs, clicks, gallops or rubs. No edema or JVD. Chest is clear; no wheezes or rales. Assessment: Encounter Diagnoses Code Name Primary? Qualifier ??? 272.2 Mixed Hyperlipidemia Yes ??? 244.9Y Hypothyroidism ??? 787.91L Acute Diarrhea Plan: CULTURE FOR ENTERIC PATHOGENS, OVA AND PARASITES, C. DIFF TOXIN A & B Plan: I have recommended small amounts clear fluids frequently, soups, juices, water and advance diet as tolerated. Return office visit if symptoms persist or worsen; I have alerted the patient to call if high fever, dehydration, marked weakness, fainting, increased abdominal pain, blood in stool or vomit. Stool cultures ordered. Wait to take IMODIUM AD. Continue other meds for now. She was instructed to make a lab only appointment for her thyroid and lipids. documented in this encounter Plan of Treatment Not on filedocumented as of this encounter Visit Diagnoses Diagnosis Mixed hyperlipidemia - Primary Hypothyroidism Unspecified hypothyroidism Acute diarrhea Diarrhea Diabetes mellitus, type 2 (H) Type II or unspecified type diabetes tori litus without mention of complication, not stated as uncontrolled documented in this encounter Care Teams Supervisor Lending Activities Relationship Specialty Start Date End Date Yvrose Cox MD PCP - General 05/30/09 02/21/[address] [place] [address] documented as of this encounter
--- OUTSIDE RECORDS SUMMARY | 2022-08-04 08:48 | XMS_ITS | Encounter Summary ---
:1965 Author Organization [place] Address [facility] [place] [address] Care Team Providers Name Role Phone Cedric Friedman MD Primary Care Provider Reason for Referral Consultation (Routine) - Closed Specialty Diagnoses / Procedures Referred By Contact Refer red To Contact Orthopedics Diagnoses Cervical radiculopathy Cedric Friedman MD [facility] [place] [address] [place] [address] [place], [place] [id number] Referral ID Status Reason Start Date Expiration Date Visits V isits Requested Authorized [id number] Closed Consult Only 12/18/2009 03/25/2010 3 3 NIZATIONAL CONSULTANT Reason for Visit Reason Onset Date Comments Symptoms 12/18/2009 Right hand and arm n umbness Encounter Details Date Type Department Care Team Description 12/18/2009 Telephone [facility] Cedric Friedman, Sympt oms (Right hand System in [place] MD and arm numbness) Family Practice [facility] [place] [address] [place] [address] [place] [address] [address] [place] [id number] Social History Tobacco Use Types Packs/Day Years Used Date Never Smoker Alcohol Use Standard Drinks/Week Comments Not Asked 0 (1 standard drink = 0.6 oz pure alcoho l) Sex Assigned at Date Recorded Not on file documented as of this encounter Miscellaneous Notes Telephone Encounter - Cedric Friedman MD - 12/18/2009 3:17 PM CST Recommend that she be seen in Orthopedics within the next 2 days. Consult placed. Will get Physical Therapy as well for cervical traction. It sounds like she could have cervical radiculopathy (pinched nerve in neck). I called and left a message on her # listed below. If she is having any coolness or color changes ordecreased pulse in her arm, or weakness, she is supposed to come to the ER emergently. Some numbnessaround the sight of the Lidoderm patch is to be expected. NIZATIONAL CONSULTANT Telephone Encounter - Cristian Carter - 12/18/2009 2:49 PM CST Pt called back with number to be reached at [phone]. NIZATIONAL CONSULTANT Telephone Encounter - Mary Singh (Poly) - 12/18/2009 2:33 PM ORGANIZATIONAL CONSULTANT Situation/What is the patient???s concern/need: Patient calling back to report that her right hand and arm have become numb this afternoon. Clinical Background/Recent Intervention: Was seen this am for neck injury related to a slip on the ice 2 days ago. Was given Rxs for pain relief. Has taken the Flexeril and Darvocet and applied the Lidoderm patch. Numbness occurred afterwards. Recommendation/Patient Request: Advised patient that message will be forwarded to Best number(s) to reach patient: cell # [phone] NIZATIONAL CONSULTANT documented in this encounter Plan of Treatment Not on filedocumented as of this encounter Visit Diagnoses Diagnosis Cervical radiculopathy - Primary Brachial neuritis or radiculitis nos documented in this encounter Care Teams Junior Net Developer Relationship Specialty Start Date End Date Cedric Friedman MD PCP - General 05/30/09 02/21/21 [facility] [place] [address] [facility] [address] [place] [address] documented as of this encounter
--- OUTSIDE RECORDS SUMMARY | 2022-08-04 08:48 | XMS_ITS | Encounter Summary ---
:1965 Author Organization [place] Address [facility] [place] [address] Care Team Providers Name Role Phone Cedric Friedman MD Primary Care Provider Reason for Visit Reason Onset Date Comments Medication Request 11/27/2009 ?antibiotic Encounter Details Date Type Department Care Team Description 11/27/2009 Telephone [facility] Cedric Friedman, Medic ation Request System in [place] MD (?antibiotic) Family Practice [facility] [address] [place] [address] [place] [address] [address] [place], [place] [address] Social History Tobacco Use Types Packs/Day Years Used Date Never Smoker Alcohol Use Standard Drinks/Week Comments Not Asked 0 (1 standard drink = 0.6 oz pure alcoho l) Sex Assigned at Date Recorded Not on file documented as of this encounter Miscellaneous Notes Telephone Encounter - Elissa Sorto - 11/27/2009 9:19 AM CST Pt informed HT CREW TIME CLERK Telephone Encounter - Cedric Friedman MD - 11/27/2009 9:12 AM CST ZITHROMAX faxed to [facility] [place]. Nursing: Please inform her. Thanks. HT CREW TIME CLERK Telephone Encounter - Cristin Vaughan - 11/27/2009 8:32 AM CST Situation/What is the patient???s concern/need: Not better Clinical Background/Recent Intervention: Left message reporting that she is not better since last week. Recommendation/Patient Request: Was instructed by you call if not better and you would order an antibiotic. Inquired about getting az-pack. If so, can fax to lizzie [facility]. Best number(s) to reach patient: [phone] ext. [phone] HT CREW TIME CLERK documented in this encounter Plan of Treatment Not on filedocumented as of this encounter Visit Diagnoses Not on filedocumented in this encounter Care Teams Firearms Sales Associate Relationship Specialty Start Date End Date Cedric Friedman MD PCP - General 05/30/09 02/21/[address] [place] [address] documented as of this encounter
--- OUTSIDE RECORDS SUMMARY | 2022-08-04 08:48 | XMS_ITS | Encounter Summary ---
:1965 Author Organization [place] Address [facility] [place] [address] Care Team Providers Name Role Phone Yvrose Cox MD Primary Care Provider Reason for Referral Consultation (Routine) - Closed Specialty Diagnoses / Procedures Referred By Contact Refer red To Contact Physical Therapy Diagnoses Trapezius strain Yvrose Cox MD Zz Rw Phy Therapy [facility] Arsh Villatoro [address] [place] [phone] Fax: Referral ID Status Reason Start Date Expiration Date Visits V isits Requested Authorized [id number] Closed Consult Only 12/18/2009 06/25/2010 6 6 LER DRIER OPERATOR Reason for Visit Reason Comments Fall slipped on ice 12-16-09 Pain back and right side of neck Encounter Details Date Type Department Care Team Description 12/18/2009 Office Visit [facility] Yvrose Cox, Mixed Hyperlipidemia (Primary Dx); System in Arsh Villatoro MD Hypothyroidism; Family Practice [facility] Arsh Villatoro Trapezius Strain [address] [phone] [place] [phone] Social History Tobacco Use Types Packs/Day Years Used Date Never Smoker Alcohol Use Standard Drinks/Week Comments Not Asked 0 (1 standard drink = 0.6 oz pure alcoho l) Sex Assigned at Date Recorded Not on file documented as of this encounter Last Filed Vital Signs Vital Sign Reading Time Taken Comments Blood Pressure 100/72 12/18/2009 9:18 AM TUMBLER DRIER OPERATOR Pulse 56 12/18/2009 9:18 AM TUMBLER DRIER OPERATOR Temperature 36.4 ??C (97.6 ??F) 12/18/2009 9:18 AM TUMBLER DRIER OPERATOR Respiratory Rate - - Oxygen Saturation - - Inhaled Oxygen Concentration - - Weight 78.2 kg (172 lb 8 oz) 12/18/2009 9:18 AM TUMBLER DRIER OPERATOR Height - - Body Mass Index 28.49 11/20/2009 11:25 AM TUMBLER DRIER OPERATOR documented in this encounter Progress Notes Yvrose Cox MD - 12/18/2009 9:47 AM CST Chief Complaint Patient presents with ??? Fall slipped on ice 12-16-09 ??? Pain back and right side of neck The patient reports an injury to her neck of moderate severity 2 days ago. The patient describes thecontext and mechanism of injury as slipping on some ice in her garage. She never fell, but stretchedher arms out and caught herself on the car. The pain was bearable yesterday, but today is unbearableafter waking up. The patient denies previous injury. The patient has attempted the following treatments: Icy Hot and ibuprofen and massage. The patient denies any other aggravating or alleviating factors or associated symptoms. Symptoms originally started after she strained her neck while doing Yoga. Medications marked Taking as of 12/18/09 encounter (Office Visit) with YVROSE COX: PROAIR HFA 108 (90 BASE) MCG/ACT IN AERS INHALE 1 TO 2 PUFFS EVERY 4 TO 6 HOURS NEEDED Disp: 1 Rfl: 5 SIMVASTATIN 40 MG OR TABS 1 TABLET AT BEDTIME Disp: 30 Rfl: 5 SYNTHROID 50 MCG OR TABS 1 TABLET DAILY Disp: 30 Rfl: 5 METFORMIN HCL# 500 MG (OSM) OR SR 24HR 2 TABLETS DAILY Disp: 60 Rfl: 12 ASPIRIN 81 MG OR TABS ONE DAILY Disp: 100 Rfl: 3 ROS: negative for numbness of arms or hands. negative for weakness of upper extremities. O: Vitals: Blood pressure 100/72, pulse 56, temperature 97.6 ??F (36.4 ??C), temperature source Temporal, weight 172 lb 8 oz (78.245 kg). General: Patient is well nourished, alert and oriented in moderate distress. Anxious mood and affect. Eyes are normal. PERRLA, corneas and conjunctivae normal. Ears: normal tympanic membranes and extra-auditory canals. Throat: normal mucosa without any lesions or erythema. Neck: she is able to flex and extend her neck, rotate bilaterally, and bilaterally extend her neck ,no adenopathy, and thyroid normal size, non-tender, without nodularity. No posterior cervical spine tenderness. Lungs clear to auscultation. Good air movement bilaterally without rales, wheezes, or rhonchi. Cardiac: normal S1 and S2 without any murmur, gallops or rubs. No carotid bruits. No edema or cyanosis. Skin: she has no overlying erythema or soft tissue swelling. She is hypersensitive to pain with evenlight touch on her right trapezius, extending to her right deltoid and to her right scapular region.Tightness of right trapezius muscles noted. Ext: normal meter shop superintendent strength, normal color of hands and normal pulses. Attempted biceps strength testing worsens her right shoulder and neck pain. ASSESSMENT: Encounter Diagnoses Code Name Primary? Qualifier ??? 272.2 Mixed Hyperlipidemia Yes Plan: SIMVASTATIN 40 MG OR TABS ??? 244.9Y Hypothyroidism Plan: SYNTHROID 50 MCG OR TABS ??? 840.8E Trapezius Strain Plan: LIDODERM 5 % EX PTCH, FLEXERIL 5 MG OR TABS, DARVOCET-N 100 100-650 MG OR TABS, CONSULT TO PHYS. THERAPY (RW/ZU) New problem. Lidoderm patches, Flexeril for muscle spasms, Darvocet for more severe pain. Physical Therapy. If new or worsening symptoms, then return to clinic. LER DRIER OPERATOR documented in this encounter Nursing Notes 12/18/2009 9:15 AM CST >> RAMBO Watson BROKATHLEENSabra Moreland Dec 18, 2009 9:22 AM Pt aware she is due for A pap and a mammo documented in this encounter Plan of Treatment Not on filedocumented as of this encounter Visit Diagnoses Diagnosis Mixed hyperlipidemia - Primary Hypothyroidism Unspecified hypothyroidism Trapezius strain Sprain and strain of other specified sit es of shoulder and upper arm documented in this encounter Care Teams Drafting Clerk Relationship Specialty Start Date End Date Yvrose Cox MD PCP - General 05/30/09 02/21/21 [facility] Arsh Villatoro [address] [place] [address] [address] [place] [address] documented as of this encounter
--- OUTSIDE RECORDS SUMMARY | 2022-08-04 08:48 | XMS_ITS | Encounter Summary ---
:1965 Author Organization [place] Address [address] [facility] [place] [address] Care Team Providers Name Role Phone Cedric Friedman MD Primary Care Provider Reason for Visit Reason Comments Radiology Visit ct scan Encounter Details Date Type Department Care Team Description 01/22/2010 Allied Health/Nurse [facility] Ra diology Visit (ct Visit System in [place] scan) Imaging [address] [place] [address] Social History Tobacco Use Types Packs/Day Years Used Date Never Smoker Alcohol Use Standard Drinks/Week Comments Not Asked 0 (1 standard drink = 0.6 oz pure alcoho l) Sex Assigned at Date Recorded Not on file documented as of this encounter Plan of Treatment Not on filedocumented as of this encounter Procedures Procedure Name Priority Date/Time Associated Diagnosis Comme nts CT SCAN Routine 01/22/2010 12:47 PM Other screening Resul ts for this ABDOMEN/PELVIS ENGINEERING DIRECTOR mammogram procedure are in LLQ abdominal pain the resul ts section. documented in this encounter Results CT SCAN ABDOMEN/PELVIS (01/22/2010 12:47 PM ENGINEERING DIRECTOR) Anatomical Region Laterality Modality Other Specimen (Source) Anatomical Collection Method Collection Time Re ceived Time Location / / Volume Laterality 01/22/2010 12:47 PM ENGINEERING DIRECTOR Impressions 01/22/2010 12:[address] ABDOMEN/PELVIS SCAN, ENHANCED ?? Jan 22, 2010 12:47:00 PM HISTORY: Four days left lower abdominal pain TECHNIQUE: After oral contrast and durin g bolus administration 100 mL Optiray 350 the abdomen and pelvis were scanned. Coronal and sagittal reconstruction images were obtained. COMPARISON: None. FINDINGS: Visualized lung bases are unre markable. Mild fatty infiltration of the liver. Liver, spleen , pancreas, gallbladder, adrenal glands and kidneys otherwise sudeep ear normal. Multiple follicles left ovary with prominent follicle measu ring 1.9 cm in diameter. Mildly prominent somewhat heterogenous u terus. No significant abdominal or pelvic lymphadenopathy or a scites. Abdominal and pelvic bowel loops appear normal. No pathologic osseous lesions. IMPRESSION: 1. Prominent follicle with multiple marlon tional smaller follicles left ovary. 2. Somewhat enlarged and heterogenous ut erus. 3. Fatty infiltration of the liver. Marc Cabral MD [facility] IMAGING [facility]UDIES documented in this encounter Visit Diagnoses Diagnosis Other screening mammogram LLQ abdominal pain Abdominal pain, left lower quadrant documented in this encounter Care Teams Java Software Developer Relationship Specialty Start Date End Date Cedric Friedman MD PCP - General 05/30/09 02/21/[address] [place] [address] documented as of this encounter
--- OUTSIDE RECORDS SUMMARY | 2022-08-04 08:48 | XMS_ITS | Encounter Summary ---
:1965 Author Organization [place] Address [address] [place] [address] Care Team Providers Name Role Phone Cedric Friedman MD Primary Care Provider Encounter Details Date Type Department Care Team Description 12/18/2009 Results Only [facility] Gigi Carmona MD in [facility] [address] [place] [address] [place] [address] [place] [address] [place] [address] [phone] (Wo rk) Social History Tobacco Use Types Packs/Day Years Used Date Never Smoker Alcohol Use Standard Drinks/Week Comments Not Asked 0 (1 standard drink = 0.6 oz pure alcoho l) Sex Assigned at Date Recorded Not on file documented as of this encounter Plan of Treatment Not on filedocumented as of this encounter Procedures Procedure Name Priority Date/Time Associated Diagnosis Comme [facility] CT CERVICAL Routine 12/18/2009 4:10 PM Results for this SPINE W/O CONTRAST METALWORKING INSTRUCTOR procedure are in the results section. documented in this encounter Results CT SCAN CERV SPINE (12/18/2009 4:10 PM METALWORKING INSTRUCTOR) Specimen (Source) Anatomical Collection Method Collection Time Re ceived Time Location / / Volume Laterality 12/18/2009 4:10 PM METALWORKING INSTRUCTOR Impressions RADIOLOGY RESULTS - 12/18/2009 4:[address] CERVICAL SPINE, UNENHANCED ??Dec 2, 2 010 4:10:00 PM HISTORY: Fall, numbness right fingers TECHNIQUE: Noncontrast axial scans and c oronal and sagittal reformations from skull base thru T2. COMPARISON: None. FINDINGS: Vertebral bodies are normal in stature and alignment. No fractures identified. Prevertebral soft tissues appear normal. Scattered cervical lymph nodes. Partial ossification of the nuchal ligament. Visualized base the brain and lung apices are unremarkable. IMPRESSION: Negative cervical spine. Gigi Carmona MD [facility] IMAGING STUDIES Performing Organization Address City/State/ZIP Code Phon e Number RADIOLOGY RESULTS documented in this encounter Visit Diagnoses Not on filedocumented in this encounter Care Teams Dealer Account Manager Relationship Specialty Start Date End Date Cedric Friedman MD PCP - General 05/30/09 02/21/21 [facility] [address] [place] [address] [address] [place] [address] documented as of this encounter
--- OUTSIDE RECORDS SUMMARY | 2022-08-04 08:48 | XMS_ITS | Encounter Summary ---
:1965 Author Organization [place] Address [address] [place] [address] Care Team Providers Name Role Phone Cedric Friedman MD Primary Care Provider Sushma Jamison MD Primary Care Provider Unavailable Encounter Details Date Type Department Care Team Description 01/22/2010 [facility] in [facility] Marc ocampo MD [facility] [address] [place] [address] [address] [place], [place] [address] (Wo rk) Social History [...] on filedocumented in this encounter Care Teams Arcade Game Technician Relationship Specialty Start Date End Date Cedric Friedman MD PCP - General 05/30/09 02/21/[address] [facility] [address] [facility] [address] [place] [address] Sushma Jamison MD PCP - General Family Medicine 02/22/21 [address] [place] [address] documented as of this encounter
--- OUTSIDE RECORDS SUMMARY | 2022-08-04 08:48 | XMS_ITS | Encounter Summary ---
:1965 Author Organization [place] Address [address] [facility] [place] [address] Care Team Providers Name Role Phone Cedric Friedman MD Primary Care Provider Reason for Visit Reason Onset Date Comments Triage 01/22/2010 LLQ pain Encounter Details Date Type Department Care Team Description 01/22/2010 Telephone [facility] Zaida Ambrose, clinical research monitor (LLQ pain) [place] [address] [facility] [address] [facility] [phone] Social History Tobacco Use Types Packs/Day Years Used Date Never Smoker Alcohol Use Standard Drinks/Week Comments Not Asked 0 (1 standard drink = 0.6 oz pure alcoho l) Sex Assigned at Date Recorded Not on file documented as of this encounter Miscellaneous Notes Telephone Encounter - Zaida Martin - 01/22/2010 8:38 AM CST TELEPHONE TRIAGE ENCOUNTER FORM Date: 01/22/2010 PCP: Cedric Friedman MD, MD Patient Name: Sil Power Gender: female : 1965 Age: [age] year old Time: 8:34 AM Phone Numbers: [phone] (home) Pharmacy: [facility] ASSESSMENT Presenting Problem: LLQ abd pain Subjective/objective: intermittant pain x 5 days, that began w/ a bout of diarrhea. Patient took Imodium initially - and has not had a stool since. Patient reports pain has gotten worse this am. Rates pain 6-7/10. :from my belly button if you draw a diagonal line to the left down it is there pt repor ts hx of Ovarian cyst once before. I forgot about that, it could be that same kind of pain Onset: gradual, intermittent, worsening Duration: 5 days Associated Sx: No fever noted. Gassy, crampy and bloated feeling. Reports feeling nauseated this am.Problem list reviewed: YES Recent History: N/A or not addressed. Recent Illness: N/A or not addressed Allergies verified: N/A or not addressed Precipitated by: Unknown origin Med list reviewed: N/A or not addressed Alleviated by: n/a Immunosuppressed:N/A or not addressed Conclusion / Primary Problem: Nausea, LLQ abd pain Protocol(s) Consulted: Telephone Triage Protocols for Nurses. Frank 2001 - -6 PLAN / INTERVENTION Disposition: Referred to clinic - to be seen today within 2 hours Caller verbalizes understanding of disposition? YES Caller agrees to plan? Yes: EVALUATION / FOLLOW-UP If symptoms worsen in anyway prior to scheduled appointment, then patient is instructed to go directly to the Emergency Room. ALTY INSURANCE CLAIM ADJUSTER documented in this encounter Plan of Treatment Not on filedocumented as of this encounter Visit Diagnoses Not on filedocumented in this encounter Care Teams Auto Technician Mechanic Relationship Specialty Start Date End Date Cedric Friedman MD PCP - General 05/30/09 02/21/[address] [place] [address] documented as of this encounter
--- OUTSIDE RECORDS SUMMARY | 2022-08-04 08:48 | XMS_ITS | Encounter Summary ---
:1965 Author Organization [place] Address [facility] [place] [address] Care Team Providers Name Role Phone Yvrose Cox MD Primary Care Provider Reason for Visit Reason Comments Sick nausea,headache,fatigue,coug paulie,dizzy Refill Request on meds Encounter Details Date Type Department Care Team Description 10/04/2009 Office Visit [facility] Yvrose Cox, Mixed Hyperlipidemia (Primary Dx); System in Arsh Villatoro MD Hypothyroidism; Family Practice [facility] Arsh Villatoro Acute Upper Respiratory Infections of Un specified Site; [address] [place] [address] Diabetes Mellitus, Type 2 (H ); KWABENA Pineda [address] Nausea and Vomiting [id number] KWABENA PINEDA [phone] [id number] Social History Tobacco Use Types Packs/Day Years Used Date Never Smoker Alcohol Use Standard Drinks/Week Comments Not Asked 0 (1 standard drink = 0.6 oz pure alcoho l) Sex Assigned at Date Recorded Not on file documented as of this encounter Last Filed Vital Signs Vital Sign Reading Time Taken Comments Blood Pressure 120/80 10/04/2009 8:59 AM SERVICE COUNTER CASHIER Pulse 72 10/04/2009 8:59 AM SERVICE COUNTER CASHIER Temperature 36.6 ??C (97.8 ??F) 10/04/2009 8:59 AM SERVICE COUNTER CASHIER Respiratory Rate - - Oxygen Saturation - - Inhaled Oxygen Concentration - - Weight 77.2 kg (170 lb 4.8 oz) 10/04/2009 8:59 AM SERVICE COUNTER CASHIER Height - - Body Mass Index 27.91 05/25/2009 1:39 PM CDT documented in this encounter Progress Notes Yvrose Cox MD - 10/04/2009 9:16 AM CST Chief Complaint: Chief Complaint Patient presents with ??? Sick nausea,headache,fatigue,coughing,dizzy ??? Refill Request on meds The patient complains of a frontal headache of moderate severity for yesterday. The patient describes the symptoms as above. The patient describes modifying or exacerbating factors as: none. The patient has attempted the following treatments: none. The patient denies any other aggravating or alleviating factors or associated symptoms, except lightheaded, fatigue, and nausea. She feels this is not as bad as a migraine headache. No recent fevers or head injury. She is also here for lab tests for her diabetes mellitus. She stopped taking her metformin. Patient Active Problem List Diagnoses Code ??? Diabetes Mellitus, Type 2 250.00BC ??? Hypothyroidism 244.9Y ??? Mixed Hyperlipidemia 272.2 Medications marked Taking as of 10/04/09 encounter (Office Visit) with YVROSE COX: PROAIR HFA 108 (90 BASE) MCG/ACT IN AERS INHALE 1 TO 2 PUFFS EVERY 4 TO 6 HOURS NEEDED Disp: 1 Rfl: 0 SIMVASTATIN 40 MG OR TABS 1 TABLET AT BEDTIME Disp: 30 Rfl: 2 SYNTHROID 50 MCG OR TABS 1 TABLET DAILY Disp: 30 Rfl: 2 Allergies Allergen Reactions ??? Percocet (Oxycodone-acetaminophen) Itching ??? Phenergan (Sympathomimetics) Anaphylaxis CONVUSIONS Review Of Systems (other than mentioned above) Constitutional: negative Ears/Nose/Throat: nasal congestion. Respiratory: negative for cough. Gastrointestinal: nausea. PHYSICAL EXAMINATION: Blood pressure 120/80, pulse 72, temperature 97.8 ??F (36.6 ??C), temperature source Temporal, weight 170 lb 4.8 oz (77.248 kg). General: Patient is well nourished, alert [...] and non-tender. No palpable masses or hepatosplenomegaly. Labs: Component Reference Range 10/04/2009 WBC 4.0-11.0 10e9/L 6.8 RBC 3.8-5.2 10e12/L 5.01 HGB 11.7-15.7 g/dL 13.3 Hct 35.0-47.0 % 40.5 MCV 78-100 fl 81 MCH 26.5-33.0 pg 26.5 MCHC 31.5-36.5 g/dL 32.8 RDW 10.0-15.0 % 13.5 PLT 150-450 10e9/L 292 Sodium 133-144 mmol/L 143 POTASSIUM 3.4-5.3 mmol/L 4.3 CHLORIDE 94-109 mmol/L 103 CARBON DIOXIDE 20-32 mmol/L 31 ANION GAP 6-17 mmol/L 9 GLUCOSE 60-99 mg/dL 112 (H) UREA NITROGEN 5-24 mg/dL 16 CREATININE 0.52-1.04 mg/dL 0.81 GFR, Estimated Low: >60 mL/min/1.7m2 78 GFR, Est., if Black Low: >60 mL/min/1.7m2 >90 CALCIUM 8.5-10.4 mg/dL 10.0 Creatinine, Urine mg/dL 83 Microalbumin mg/L mg/L 24 MICROALBUMIN,URINE - CREAT 0-20 mg/g Cr 28.92 (H) ALT 0-50 U/L 44 Hemoglobin A1C 4.3-6.0 % 7.1 (H) hCG, Qual Urine Low: NEG Negative . . . TSH: pending. ASSESSMENT/PLAN: Encounter Diagnoses Code Name Primary? Qualifier ??? 272.2 Mixed Hyperlipidemia Yes Plan: SIMVASTATIN 40 MG OR TABS, VENOUS COLLECTION, ALANINE AMINO (ALT) (SGPT) ??? 244.9Y Hypothyroidism Plan: SYNTHROID 50 MCG OR TABS, VENOUS COLLECTION, TSH W/FREE T4 REFLEX ??? 465.9 Acute Upper Respiratory Infections of Unspecified Site Plan: CBC WITH PLATELETS ??? 250.00BC Diabetes Mellitus, Type 2 Plan: VENOUS COLLECTION, A.M.A. BASIC METABOLIC PANEL, HEMOGLOBIN A1C, MICROALBUMIN (INC URINE CREAT), METFORMIN HCL# 500 MG (OSM) OR SR 24HR ??? 787.01C Nausea and Vomiting Plan: HCG QUAL URINE, CBC WITH PLATELETS Labs reviewed and diabetes mellitus is not under control. Start METFORMIN 500mg. Recheck in 3 months. Work note given for upper respiratory infection symptoms. Continue other meds. ICE COUNTER CASHIER documented in this encounter Nursing Notes 10/04/2009 9:00 AM CST >> RAMBO STARR [facility] Oct 04, 2009 9:03 AM Pt made aware she is due for a pap and a mammogram. documented in this encounter Plan of Treatment Not on filedocumented as of this encounter Procedures Procedure Name Priority Date/Time Associated Diagnosis Comme nts HCL HCG URINE QUAL Routine 10/04/2009 9:26 AM Nausea and Vomit ing Results for this SERVICE COUNTER CASHIER procedure are i n the results section. HCL ALBUMIN URINE Routine 10/04/2009 9:26 AM Diabetes Mellitus , Results for this (INC CREAT) SERVICE COUNTER CASHIER Type 2 (H) procedure are i n the results section. CL AFF CBC WITH Routine 10/04/2009 9:19 AM Acute Upper Result s for this PLATELETS SERVICE COUNTER CASHIER Respiratory Infections proce dure are in of Unspecified S ite the results Nausea and Vomiting section. HCL BASIC METABOLIC Routine 10/04/2009 9:19 AM Diabetes Mellit us, Results for this PANEL SERVICE COUNTER CASHIER Type 2 (H) procedure are i n the results section. HCL TSH W/FREE T4 Routine 10/04/2009 9:19 AM Hypothyroidism Re sults for this REFLEX SERVICE COUNTER CASHIER procedure are i n the results section. HCL GLYCATED Routine 10/04/2009 9:19 AM Diabetes Mellitus, Res ults for this HEMOGLOBIN SERVICE COUNTER CASHIER Type 2 (H) procedure are i n the results section. HCL ALT Routine 10/04/2009 9:19 AM Mixed Hyperlipidemia R esults for this SERVICE COUNTER CASHIER procedure are i n the results section. HC VENOUS Routine 10/04/2009 9:14 AM Mixed Hyperli pidemia COLLECTION SERVICE COUNTER CASHIER Diabetes Mellitus, Type 2 (H) Hypothyroidism documented in this encounter Results HCG QUAL URINE (10/04/2009 9:26 AM SERVICE COUNTER CASHIER) [facility] Method Time Signature HCG Qual Negative NEG [facility] Urine This test provides a presum ptive diagnosis of or non-. A [facility] confirmed diagnosis should only be made by a ph ysician after all clinical and laboratory findings have been evaluated. Specimen Anatomical Collection Method Collection Time Receive d Time (Source) Location / / Volume Laterality 10/04/2009 9:26 AM 9 9:27 SERVICE COUNTER CASHIER AM SERVICE COUNTER CASHIER Yvrose Cox MD LABORATORY Performing Organization Address City/State/ZIP Code Phon e Number [facility] [address] (ABNORMAL) MICROALBUMIN (INC URINE CREAT) (10/04/2009 9:26 AM SERVICE COUNTER CASHIER) [facility] Method Time Signature Creatinine 83 mg/dL [facility] Urine [facility] Albumin Urine 24 mg/L [facility] mg/L [facility] Albumin Urine 28.92 (H) 0 - 20 [facility] mg/g Cr mg/g Cr [facility] Specimen Anatomical Collection Method Collection Time Receive d Time (Source) Location / / Volume Laterality 10/04/2009 9:26 AM 9 9:27 SERVICE COUNTER CASHIER AM SERVICE COUNTER CASHIER Yvrose Cox MD LABORATORY Performing Organization Address City/State/ZIP Code Phon e Number [facility] [address] CBC WITH PLATELETS (10/04/2009 9:19 AM SERVICE COUNTER CASHIER) athologist Signature WBC 6.8 4.0 - 11.0 [facility] 10e9/L [facility] RBC Count 5.01 3.8 - 5.2 [facility] 10e12/L [facility] Hemoglobin 13.3 11.7 - [facility] 15.7 g/dL [facility] Hematocrit 40.5 35.0 - [facility] 47.0 % [facility] MCV 81 78 - 100 [facility] fl [facility] MCH 26.5 26.5 - [facility] 33.0 pg [facility] MCHC 32.8 31.5 - [facility] 36.5 g/dL [facility] RDW 13.5 10.0 - [facility] 15.0 % [facility] Platelet Count 292 150 - 450 [facility] 10e9/L [facility] Specimen Anatomical Collection Method Collection Time Receive d Time (Source) Location / / Volume Laterality 10/04/2009 9:19 AM 9 9:20 SERVICE COUNTER CASHIER AM SERVICE COUNTER CASHIER Yvrose Cox MD LABORATORY Performing Organization Address City/State/ZIP Code Phon e Number [facility] [address] TSH W/FREE T4 REFLEX (10/04/2009 9:19 AM SERVICE COUNTER CASHIER) athologist Signature TSH 2.20 0.4 - 5.0 [facility] mU/L [facility] Specimen Anatomical Collection Method Collection Time Receive d Time (Source) Location / / Volume Laterality 10/04/2009 9:19 AM 9 9:20 SERVICE COUNTER CASHIER AM SERVICE COUNTER CASHIER Yvrose Cox MD LABORATORY Performing Organization Address City/State/ZIP Code Phon e Number [facility] [address] (ABNORMAL) HEMOGLOBIN A1C (10/04/2009 9:19 AM SERVICE COUNTER CASHIER) athologist Signature Hemoglobin A1C 7.1 (H) 4.3 - 6.0 [facility] % [facility] Specimen Anatomical Collection Method Collection Time Receive d Time (Source) Location / / Volume Laterality 10/04/2009 9:19 AM 9 9:20 SERVICE COUNTER CASHIER AM SERVICE COUNTER CASHIER Yvrose Cox MD LABORATORY Performing Organization Address City/State/ZIP Code Phon e Number [facility] [address] (ABNORMAL) A.M.A. BASIC METABOLIC PANEL (10/04/2009 9:19 AM SERVICE COUNTER CASHIER) athologist Signature Sodium 143 133 - 144 [facility] mmol/L [facility] Potassium 4.3 3.4 - 5.3 [facility] mmol/L [facility] Chloride 103 94 - 109 [place] mmol/L [facility] Carbon Dioxide 31 20 - 32 [place] mmol/L [facility] Anion Gap 9 6 - 17 [facility] mmol/L [facility] Glucose 112 (H) 60 - 99 [place] mg/dL [facility] Comment: Non Fasting Urea Nitrogen 16 5 - 24 mg/dL [place] [facility] Creatinine 0.81 0.52 - 1.04 mg/dL [place] [facility] Comment: New IDMS-traceable calibration beginning 03/16/08 GFR Estimate 78 >60 mL/min/1.7m2 [place] [facility] GFR Estimate If Black >90 >60 mL/min/1.7m2 [facility] Calcium 10.0 8.5 - 10.4 mg/dL [place] [facility] Specimen Anatomical Collection Method Collection Time Receive d Time (Source) Location / / Volume Laterality 10/04/2009 9:19 AM 9 9:20 SERVICE COUNTER CASHIER AM SERVICE COUNTER CASHIER Yvrose Cox MD LABORATORY Performing Organization Address City/State/ZIP Code Phon e Number [facility] [place] [facility] [place] [facility] [place] [address] ALANINE AMINO (ALT) (SGPT) (10/04/2009 9:19 AM SERVICE COUNTER CASHIER) P athologist Signature ALT 44 0 - 50 U/L [place] [facility] Specimen Anatomical Collection Method Collection Time Receive d Time (Source) Location / / Volume Laterality 10/04/2009 9:19 AM 9 9:20 SERVICE COUNTER CASHIER AM SERVICE COUNTER CASHIER Yvrose Cox MD LABORATORY Performing Organization Address City/State/ZIP Code Phon e Number [facility] [place] [facility] [place] [facility] [place] [address] documented in this encounter Visit Diagnoses Diagnosis Mixed hyperlipidemia - Primary Hypothyroidism Unspecified hypothyroidism Acute upper respiratory infections of un specified site Diabetes mellitus, type 2 (H) Type II or unspecified type diabetes tori litus without mention of complication, not stated as uncontrolled Nausea and vomiting Nausea with vomiting documented in this encounter Care Teams Meat Products Demonstrator Relationship Specialty Start Date End Date Yvrose Cox MD PCP - General 05/30/09 02/21/21 [facility] [place] [address] [place] [address] documented as of this encounter
--- OUTSIDE RECORDS SUMMARY | 2022-08-04 08:48 | XMS_ITS | Encounter Summary ---
:1965 Author Organization [place] Address [facility]0 [facility] [place] [address] Care Team Providers Name Role Phone Cedric Friedman MD Primary Care Provider Reason for Visit Reason Comments Sick x 4 days, left lower quadrna t pain, nausea, diarrhea on day 1 Encounter Details Date Type Department Care Team Description 01/22/2010 Office Visit [facility] Marc Cabral MD Other Screening Mammogram (Primary Dx); System in [facility] [address] [place], [place] [address] [id number] Social History Tobacco Use Types Packs/Day Years Used Date Never Smoker Alcohol Use Standard Drinks/Week Comments Not Asked 0 (1 standard drink = 0.6 oz pure alcoho l) Sex Assigned at Date Recorded Not on file documented as of this encounter Last Filed Vital Signs Vital Sign Reading Time Taken Comments Blood Pressure 116/70 01/22/2010 9:54 AM HOSPITALITY HOST Pulse 80 01/22/2010 9:54 AM HOSPITALITY HOST Temperature 36.8 ??C (98.2 ??F) 01/22/2010 9:54 AM HOSPITALITY HOST Respiratory Rate - - Oxygen Saturation - - Inhaled Oxygen Concentration - - Weight 77.6 kg (171 lb 1.6 oz) 01/22/2010 9:54 AM HOSPITALITY HOST Height - - Body Mass Index 28.25 11/20/2009 11:25 AM HOSPITALITY HOST documented in this encounter Progress Notes Marc Cabral MD - 01/22/2010 10:04 AM CST Subjective: Sil is a 44 year old female who presents for evaluation of abdominal pain. Characteristics of the pain are as follows: Location: LLQ without radiation Quality: cramping and stabbing at times Severity: moderate for several days and then severe this am Chronicity: Onset 4 days ago with cramping and .vomit and then it got better and this am acutely worsened Aggravating factors: nothing Alleviating factors: nothing Associated symptoms: nausea and vomiting. No fevers. No diarrhea Patient Active Problem List Diagnoses Code ??? Diabetes Mellitus, Type 2 250.00BC ??? Hypothyroidism 244.9Y ??? Mixed Hyperlipidemia 272.2 Past Surgical History Procedure Date ??? C-sec+ care,prev c-sec X2- 1986 and 2006 Meds reviewed Social history: History Substance Use Topics ??? Tobacco Use: Never ??? Alcohol Use: Not on file Review of Systems: Constitutional: negative CV: negative Respitatory: No shortness of breath, dyspnea on exertion, cough, or hemoptysis GI: negative : negative Objective: BP 116/70 Pulse 80 Temp(Src) 98.2 ??F (36.8 ??C) (Temporal) Wt 171 lb 1.6 oz (77.61kg) General: Patient is well nourished, alert and oriented in no acute distress. Normal mood and affect.Appropiate judgement and insight. Eyes: normal lids and conjunctiva. Lungs: normal respiratory effort. Clear to auscultation and percussion throughout. Cardiac: normal S1 and S2 without any murmur, gallops or rubs. No edema or cyanosis. Abdomen:On inspection the abdomen is rounded. Auscultation reveals normal bowel sounds. On palpationthe abdomen is soft with moderate LLQ tenderness and without rebound. Further palpation reveals no masses and no organomegaly Bimanual pelvic: mild tenderness without noted enlargement left ovary but more tenderness diffusely and above the left ovary. Labs: Component Latest Ref Rng 01/22/2010 WBC 4.0 - 11.0 10e9/L 6.9 RBC 3.8 - 5.2 10e12/L 4.99 HGB 11.7 - 15.7 g/dL 13.3 HCT 35.0 - 47.0 % 40.2 MCV 78 - 100 fl 81 MCH 26.5 - 33.0 pg 26.7 MCHC 31.5 - 36.5 g/dL 33.1 RDW 10.0 - 15.0 % 13.4 PLT 150 - 450 10e9/L 278 DIFF METHOD Automated Method NEUTROPHIL 40 - 75 % 58 LYMPHOCYTE % 20 - 48 % 34 MONOCYTES, % 0 - 12 % 7 EOSINOPHILS, % 0 - 6 % 1 BASOPHILS, % 0 - 2 % 0 ABS NEUTROPHILS 1.6 - 8.3 10e9/L 4.0 LYMPHOCYTES, ABSOLUTE 0.8 - 5.3 10e9/L 2.3 MONOCYTES, ABSOLUTE 0.0 - 1.3 10e9/L 0.5 EOSINOPHILS, ABSOLUTE 0.0 - 0.7 10e9/L 0.1 BASOPHILS, ABSOLUTE 0.0 - 0.2 10e9/L 0.0 SODIUM 133 - 144 mmol/L 142 POTASSIUM 3.4 - 5.3 mmol/L 4.3 CHLORIDE 94 - 109 mmol/L 104 CARBON DIOXIDE 20 - 32 mmol/L 31 ANION GAP 6 - 17 mmol/L 8 GLUCOSE 60 - 99 mg/dL 109 (H) UREA NITROGEN 5 - 24 mg/dL 18 CREATININE 0.52 - 1.04 mg/dL 0.75 GFR, ESTIMATED Low: >60 mL/min/1.7m2 84 GFR, EST., IF BLACK Low: >60 mL/min/1.7m2 >90 CALCIUM, TOTAL 8.5 - 10.4 mg/dL 10.0 BILIRUBIN, TOTAL 0.2 - 1.3 mg/dL 0.2 ALBUMIN 3.9 - 5.1 g/dL 4.7 PROTEIN, TOTAL 6.8 - 8.8 g/dL 8.5 ALKALINE PHOSPHATASE 40 - 150 U/L 102 ALT 0 - 50 U/L 66 (H) AST 0 - 45 U/L 64 (H) LIPASE, SERUM 20 - 250 U/L 57 AMYLASE, SERUM 30 - 110 U/L 53 COLOR (U) Yellow APPEARANCE (U) Clear GLUCOSE(URINE) Low: NEG mg/dL Negative BILIRUBIN (URINE) Low: NEG Negative KETONE (URINE) Low: NEG mg/dL Negative SPECIFIC GRAVITY (U) 1.003 - 1.035 1.020 BLOOD (URINE) Low: NEG Negative PH, URINE 5.0 - 7.0 pH 6.5 PROTEIN, ALBUMIN Low: NEG mg/dL Negative UROBILINOGEN (U) 0.2 - 1.0 EU/dL 0.2 NITRITE (U) Low: NEG Negative LEUK ESTERASE Low: NEG Negative SOURCE Midstream Urine CT: IMPRESSION: 1. Prominent follicle with multiple additional smaller follicles left ovary. 2. Somewhat enlarged and heterogenous uterus. 3. Fatty infiltration of the liver. Assessment: LLQ ABDOMINAL PAIN - most consistent with ruptured ovarian cyst Plan: - note off work - prn ibuprofen over the counter and prescription for prn Tylenol #3 for severe pain - off METFORMIN for 2 days due to IV contrast - She understands to follow up immediately to the ER if there is significant worsening of her symptoms or any new concerning symptoms. ITALITY HOST documented in this encounter Plan of Treatment Not on filedocumented as of this encounter Procedures Procedure Name Priority Date/Time Associated Comments Diagnosis HCL UA MICRO IF Routine 01/22/2010 10:47 Other Screening Resul ts for this POSITIVE AM HOSPITALITY HOST Mammogram procedure are in LLQ Abdominal Pain the resul ts section. CL AFF CBC WITH Routine 01/22/2010 10:44 Other Screening Resul ts for this PLATELETS, DIFF AM HOSPITALITY HOST Mammogram procedure are in LLQ Abdominal Pain the resul ts section. HCL COMPREHENSIVE Routine 01/22/2010 10:44 Other Screening Res ults for this METABOLIC PANEL AM HOSPITALITY HOST Mammogram procedure are in LLQ Abdominal Pain the resul ts section. HCL LIPASE Routine 01/22/2010 10:44 Other Screening Results for this AM HOSPITALITY HOST Mammogram procedure are in LLQ Abdominal Pain the resul ts section. HCL AMYLASE, SERUM Routine 01/22/2010 10:44 Other Screening Re sults for this AM HOSPITALITY HOST Mammogram procedure are in LLQ Abdominal Pain the resul ts section. ZZHC CAPILLARY BLOOD Routine 01/22/2010 10:24 Other Screening COLLECTION AM HOSPITALITY HOST Mammogram LLQ Abdominal Pain documented in this encounter Results UA MICRO IF POSITIVE (01/22/2010 10:47 AM HOSPITALITY HOST) [facility] Method Time Signature Color Urine Yellow [facility] [place] [facility] Appearance Urine Clear [facility] [place] [facility] Glucose Urine Negative NEG mg/dL [facility] [place] [facility] Bilirubin Urine Negative NEG [facility] [place] [facility] Ketones Urine Negative NEG mg/dL [facility] [place] [facility] Specific [place] 1.020 1.003 - [facility] Urine 1.035 [facility] Blood Urine Negative NEG [facility] [place] [facility] pH Urine 6.5 5.0 - 7.0 [facility] pH [facility] Protein Albumin Negative NEG mg/dL [facility] Urine [facility] Urobilinogen 0.2 0.2 - 1.0 [facility] Urine EU/dL [facility] Nitrite Urine Negative NEG [facility] [place] [facility] Leukocyte Negative NEG [facility] Esterase Urine [facility] Source Midstream [facility] Urine [place] [facility] Specimen Anatomical Collection Method Collection Time Receive d Time (Source) Location / / Volume Laterality 01/22/2010 10:47 01/22/2010 AM HOSPITALITY HOST 10:48 AM HOSPITALITY HOST Marc Cabral MD LABORATORY Performing Organization Address City/State/ZIP Code Phon e Number [facility] [place] [facility] [place] [address] CBC WITH PLATELETS, DIFF (01/22/2010 10:44 AM HOSPITALITY HOST) [facility] gist Method Time Signature WBC 6.9 4.0 - [facility] 11.0 [facility] [facility] 10e9/L RBC Count 4.99 3.8 - 5.2 [facility] 10e12/L [facility] Hemoglobin 13.3 11.7 - [facility] 15.7 g/dL [facility] Hematocrit 40.2 35.0 - [facility] 47.0 % [facility] MCV 81 78 - 100 [facility] fl [place] [facility] MCH 26.7 26.5 - [facility] 33.0 pg [facility] MCHC 33.1 31.5 - [facility] 36.5 g/dL [facility] RDW 13.4 10.0 - [facility] 15.0 % [facility] Platelet Count 278 150 - 450 [facility] 10e9/L [facility] Diff Method Automated [facility] Method [facility] % Neutrophils 58 40 - 75 % [facility] [place] [facility] % Lymphocytes 34 20 - 48 % [facility] [place] [facility] % Monocytes 7 0 - 12 % [facility] [place] [facility] % Eosinophils 1 0 - 6 % [facility] [place] [facility] % Basophils 0 0 - 2 % [facility] [place] [facility] Absolute 4.0 1.6 - 8.3 [facility] Neutrophil 10e9/L [facility] Absolute 2.3 0.8 - 5.3 [facility] Lymphocytes 10e9/L [facility] Absolute 0.5 0.0 - 1.3 [facility] Monocytes 10e9/L [facility] Absolute 0.1 0.0 - 0.7 [facility] Eosinophils 10e9/L [facility] Absolute 0.0 0.0 - 0.2 [facility] Basophils 10e9/L [facility] Specimen Anatomical Collection Method Collection Time Receive d Time (Source) Location / / Volume Laterality 01/22/2010 10:44 01/22/2010 AM HOSPITALITY HOST 10:45 AM HOSPITALITY HOST Marc Cabral MD LABORATORY Performing Organization Address City/State/ZIP Code Phon e Number [facility] [place] [facility] [place] [facility] [address] AMYLASE, SERUM (01/22/2010 10:44 AM HOSPITALITY HOST) athologist Signature Amylase 53 30 - 110 [facility] U/L [facility] [facility] Specimen Anatomical Collection Method Collection Time Receive d Time (Source) Location / / Volume Laterality 01/22/2010 10:44 01/22/2010 AM HOSPITALITY HOST 10:45 AM HOSPITALITY HOST Marc Cabral MD LABORATORY Performing Organization Address City/State/ZIP Code Phon e Number [facility] [place] [facility] [place] [facility] [address] LIPASE (01/22/2010 10:44 AM HOSPITALITY HOST) P athologist Signature Lipase 57 20 - 250 [facility] U/[facility] [facility] Specimen Anatomical Collection Method Collection Time Receive d Time (Source) Location / / Volume Laterality 01/22/2010 10:44 01/22/2010 AM HOSPITALITY HOST 10:45 AM HOSPITALITY HOST Marc Cabral MD LABORATORY Performing Organization Address City/State/ZIP Code Phon e Number [facility] [place] [facility] [place] [facility] [address] (ABNORMAL) A.M.A. COMPREHENSIVE MET.PANEL (01/22/2010 10:44 AM HOSPITALITY HOST) P athologist Signature Sodium 142 133 - 144 [facility] mmol/L [facility] Potassium 4.3 3.4 - 5.3 [facility] mmol/L [facility] Chloride 104 94 - 109 [facility] mmol/L [facility] Carbon Dioxide 31 20 - 32 [facility] mmol/L [facility] Anion Gap 8 6 - 17 [facility] mmol/L [facility] Glucose 109 (H) 60 - 99 [facility] mg/dL [facility] Urea Nitrogen 18 5 - 24 [facility] mg/dL [facility] Creatinine 0.75 0.52 - [facility] 1.04 mg/dL [facility] Comment: New IDMS-traceable calibration beginning 03/16/08 GFR Estimate 84 >60 mL/min/1.7m2 [facility] GFR Estimate If Black >90 >60 mL/min/1.7m2 [facility] [place] [facility] Calcium 10.0 8.5 - 10.4 mg/dL [facility] Bilirubin Total 0.2 0.2 - 1.3 mg/dL [facility] [facility] Albumin 4.7 3.9 - 5.1 g/dL [facility] Protein Total 8.5 6.8 - 8.8 g/dL [facility] Alkaline Phosphatase 102 40 - 150 U/L [facility] [place] [facility] ALT 66 (H) 0 - 50 U/L [facility] [place] [facility] AST 64 (H) 0 - 45 U/L [facility] [place] [facility] Specimen Anatomical Collection Method Collection Time Receive d Time (Source) Location / / Volume Laterality 01/22/2010 10:44 01/22/2010 AM HOSPITALITY HOST 10:45 AM HOSPITALITY HOST Marc Cabral MD LABORATORY Performing Organization Address City/State/ZIP Code Phon e Number [facility] [place] [facility] [place] [address] documented in this encounter Visit Diagnoses Diagnosis Other screening mammogram - Primary LLQ abdominal pain Abdominal pain, left lower quadrant documented in this encounter Care Teams Sales And Leasing Agent Relationship Specialty Start Date End Date Cedric Friedman MD PCP - General 05/30/09 02/21/21 [facility] [place] [address] [place] [address] documented as of this encounter
--- NOTE | 2022-08-04 10:22 | W.ANESCHARGE ---
Anesthesia Charges Start Date/Time Anesthesia Start Date: 08/04/22 Anesthesia Start Time: 09:55 Stop Date/Time Anesthesia Stop Date: 08/04/22 Anesthesia Stop Time: 10:20 Summary Emergency: No
--- NOTE | 2022-08-04 11:28 | W.ANESCHARGE ---
Anesthesia Charges Start Date/Time Anesthesia Start Date: 08/04/22 Anesthesia Start Time: 09:55 Stop Date/Time Anesthesia Stop Date: 08/04/22 Anesthesia Stop Time: 10:20 Summary Emergency: No
== END 2022-08-04 08:44 | disposition home or self-care (01) ==
LOC: OP CLINIC 08:44
PROVIDERS: PCP Family Medicine; Visit Provider Internal Medicine Gastroenterology
DX: R19.5 Other fecal abnormalities (principal)
CPT/HCPCS: 00812; 45378; J2704

== ENCOUNTER 2022-10-01 15:21 | Outpatient (RCR) | payer BC, SELFPAY ==
--- NOTE | 2022-12-05 09:49 | ONC.NURNOTE ---
Reviewed with pt changes in [facility] program and transition of Dr. Spears to [facility] returning Spring 2022. Pt would like to stay with [facility] and will confirm with her insurance [facility] is in network. F/u due -02/2023; appt not scheduled at this time.
== END 2022-12-22 23:59 | disposition home or self-care (01) ==
LOC: CCIC 15:21
PROVIDERS: PCP Family Medicine; Visit Provider Internal Medicine Hematology & Oncology
DX: C50.912 Malignant neoplasm of unspecified site of left female breast (principal); Z17.0 Estrogen receptor positive status [ER+]; Z79.810 Long term (current) use of selective estrogen receptor modulators (SERMs); N93.9 Abnormal uterine and vaginal bleeding, unspecified; N92.0 Excessive and frequent menstruation with regular cycle; R23.2 Flushing; R53.83 Other fatigue; Z80.3 Family history of malignant neoplasm of breast
CPT/HCPCS: 99212; 99213; 99214

== ENCOUNTER 2023-03-04 12:45 | Outpatient (CLI) | payer BC, SELFPAY ==
--- NOTE | 2023-03-04 13:00 | CRLHL7_ITS ---
For Patients: As a result of the Cures Act, medical imaging exams and procedure reports are released immediately into your electronic medical record. You may view this report before your referring provider. If you have questions, please contact your health care provider. DXA BONE MINERAL DENSITY STUDY, 03/04/2023 Reason for exam: Malignant neoplasm of unspecified site of LEFT breast. Current height (inches): 65 Weight (lbs.): 160 Menopause age: Premenopausal Ethnicity: White 1. Have you had a previous hip or vertebral fracture? No. 2. Have you had any fractures during your adult life which did not result from significant trauma (e.g., auto accident)? No. 3. Did either of your parents have a hip fracture? No. 4. Do you smoke? No. 5. Have you ever taken Glucocorticoids? No. 6. Do you have rheumatoid arthritis? No. 7. Do you have secondary osteoporosis? No. 8. Do you drink 3 or more alcoholic drinks per day? No. 9. Are you being treated for osteoporosis? No. 10. Have you ever taken any of the following medications: Actonel, Evista, Fosamax, Miacalcin, Reclast, Boniva, Forteo, HRT (i.e., estrogen/hormone therapy), Protelos, Prolia, Vitamin D, Calcium, other ??? please specify. ANSWER: No. 11. Do you have any of the following medical conditions: Anorexia or bulimia, asthma or emphysema, end stage renal disease, hyperparathyroidism, any seizure disorders, cancer, inflammatory bowel diseases, hysterectomy, other ??? please specify. ANSWER: Yes; cancer. 12. What was your maximum height (inches)? 65. 13. Do you perform weightbearing exercise regularly? No. 14. Do you regularly consume dairy products? No. 15. Do you drink caffeinated beverages? Yes. 16. At what age did your period start? 13. 17. Are you premenopausal? Yes. 18. How many full-term pregnancies have you had? 2. 19. Have you ever missed your period for more than 6 months in a row (not including or menopause)? No. TECHNIQUE: Bone mineral density study was performed using the [employer]. FINDINGS: The results of the study expressed as bone mineral density (BMD) are as follows: Lumbar Spine L1 to L4: BMD: 1.143 g/cm2. T-score: 0.9. Z-score: 2.0. Neck Left: BMD: 0.881 g/cm2. T-score: 0.3. Z-score: 1.4. Right: BMD: 0.864 g/cm2. T-score: 0.1. Z-score: 1.2. Total Left: BMD: 0.986 g/cm2. T-score: 0.4. Z-score: 1.1. Right: BMD: 1.025 g/cm2. T-score: 0.7. Z-score: 1.4. IMPRESSION: Normal findings with no increased fracture risk identified. The Z-score is within the expected range for age (Z-score above -2.0). (The World Health Organization [WHO] criteria do not apply to this patient.) This patient does not fit the criteria to use the database of postmenopausal women. That database is useful for perimenopausal and postmenopausal women, and men 50 years old and older. Therefore, the T-scores are not useful to evaluate this patient and only the Z-scores are used. MARC ELAINE M.D. Diagnostic Radiologist [email or web address] Transcribed: 10:[address]/Dictated by: Marc Elaine MD @ 03/05/2023 9:08:00 AM (Electronically Signed)
== END 2023-03-04 12:46 | disposition home or self-care (01) ==
LOC: RAD 12:46
PROVIDERS: PCP Family Medicine; Visit Provider Internal Medicine Hematology & Oncology
DX: C50.912 Malignant neoplasm of unspecified site of left female breast (principal); Z78.0 Asymptomatic menopausal state
CPT/HCPCS: 77080

== ENCOUNTER 2023-05-21 11:00 | Outpatient (RCR) | payer BC, SELFPAY ==
--- NOTE | 2022-12-26 13:42 | ONC.NURNOTE ---
Patient called to report vaginal bleeding. Patient states she had a 7 day menstrual cycle in November and started another cycle on 12/24/22. Patient states bleeding was heavy the first few days of each cycle. Patient states she was instructed to call Dr. Spears to report any bleeding. Concerns reviewed with Dr. Munoz. Patient instructed to see her CHIEF COOK for further evaluation. Patient scheduled to see Dr. Spears on 02/12/23. Patient verbalizes understanding.
--- NOTE | 2023-02-12 15:57 | ONC.NURNOTE ---
I met with patient after her oncology visit. Printed information provided and reviewed re: Anastrozole and Zoladex. Patient will wait to start her Anastrozole until the time of her second Zoladex injection. Follow up appointments scheduled. Patient encouraged to call with questions or concerns. Patient verbalizes understanding of plan
--- NOTE | 2023-02-13 13:58 | URNOTE ---
Received request for prior auth for Gosrelin ([id number]). this has been approve per Jennifer on behalf of [facility] of [place]. 02/20/2023-10/18/2023 Auth#[id number]
[2023-02-20 08:37] VITALS: BP 148/87; PULSE 96; RESP 16; TEMP 36.6; O2SAT 96
[2023-02-20] MEDS: GOSERELIN ACETATE 3.6 MG IMPLANT SUBCUT (08:56)
--- NOTE | 2023-03-02 08:37 | ONC.NURNOTE ---
Patient called this morning stating she is so exhausted, can't focus, sleepy, slurred speech and has had this since last Thursday. Feels this could be related to starting her new medications. Wants to speak to a nurse who works with Dr. Spears. Instructed patient to call PCP or go to the ER if symptoms rapidly change. Message given to clinic nurse.
--- NOTE | 2023-03-02 15:57 | ONC.NURNOTE ---
Addendum entered by Rain Bradley 03/09/23 13:37: Follow up call to patient to see how she is feeling. Patient states she is doing better but she continues to experience significant fatigue. She has been pushing fluids and electrolyte drinks which has resolved her leg cramps and improved her fatigue. Patient did not see her PCP. Patient is due for her second Zoladex injection 03/20. We will re-evaluate at that time. Original Note: Pt called today reporting symptoms having both stopped Tamoxifen and began her 1st Zoladex injection on 02/20. She reports extreme fatigue. She is falling asleep at work; she is falling asleep ~ 1hr earlier each evening. Her previous sleep schedule was sleeping 9:30pm - 6am with ~1 interruption; now she is waking up 2x/night with difficulty falling back asleep. She is taking naps. Pt has history of uterine fibroids, but is not currently having bleeding; LMP 12/19/22. She also reports extreme appetite swings from high appetite to very low appetite and an increase of hot flashes. She also reports leg and feet cramps that are waking her up at night. She has a prescription for Ca/Vit D that has been unable to be filled at her pharmacy d/t availability; reviewed equivalent dosing for pt to try OTC Ca/Vit D. Reviewed symptoms with Dr. Spears. The severity of fatigue is not anticipated with starting/ending Tamoxifen and Zoladex. Recommended pt see PCP to review severe fatigue and leg/feet cramps. Reviewed with pt that appetite changes and hot flashes are anticipated with Zoladex. BNN to reach out to pt ~1 wk to f/u symptoms. Next Zoladex sched in 2 wks.
[2023-03-20 08:44] VITALS: BP 135/78; PULSE 105; RESP 16; TEMP 36.4; O2SAT 94
[2023-03-20 08:59] VITALS: BP 120/76; PULSE 94; RESP 16; TEMP 36.8; O2SAT 96
[2023-03-20] MEDS: GOSERELIN ACETATE 3.6 MG IMPLANT SUBCUT (09:14)
[2023-04-20] MEDS: GOSERELIN ACETATE 3.6 MG IMPLANT SUBCUT (15:00)
--- NOTE | 2023-05-18 16:20 | ONC.NURNOTE ---
Pt did not show up for Zoladex injection today; LM for pt to reschedule, orders held.
[2023-05-21 11:06] VITALS: BP 142/69; PULSE 78; RESP 16; TEMP 36.3; O2SAT 98
[2023-05-21] MEDS: GOSERELIN ACETATE 3.6 MG IMPLANT SUBCUT (11:28)
== END 2023-08-11 23:59 | disposition home or self-care (01) ==
LOC: CCIC 11:00
PROVIDERS: PCP Family Medicine; Referring Provider Family Medicine; Visit Provider Internal Medicine Hematology & Oncology
DX: C50.912 Malignant neoplasm of unspecified site of left female breast (principal); Z17.0 Estrogen receptor positive status [ER+]; Z79.811 Long term (current) use of aromatase inhibitors
CPT/HCPCS: 96401; 99212; 99214; 99215; J9202

== ENCOUNTER 2023-06-17 11:00 | Outpatient (RCR) | payer BC, SELFPAY | END 2023-10-15 23:59 | disposition home or self-care (01) | PROVIDERS: Visit Provider Plastic Surgery | DX: I89.0 Lymphedema, not elsewhere classified (principal); Z51.89 Encounter for other specified aftercare | CPT/HCPCS: 97110; 97140; 97165; X5282 ==

== ENCOUNTER 2023-12-28 15:30 | Outpatient (RCR) | payer BC, SELFPAY ==
--- NOTE | 2023-08-19 10:58 | URNOTE ---
Addendum entered by Marisol Dewey RN 09/22/23 13:54: Prior authorization expires on 10/18/23. Original Note: Request received for authorization for Zoladex ([id number]). Prior authorization is not required [facility] (Call ref#[id number]/2023 Leti Chavis @1054am).
--- NOTE | 2023-09-29 11:32 | URNOTE ---
Pt current insurance plan: Request received for authorization for Zoladex ([id number]). Prior authorization is not required (no date range) per [facility] Rep. Raquel Chavis (Call ref#[id number]/[id number] Raquel Chavis).
== END 2024-02-16 23:59 | disposition home or self-care (01) ==
LOC: CCIC 15:30
PROVIDERS: PCP Student in an Organized Health Care Education/Training Program; Referring Provider Student in an Organized Health Care Education/Training Program; Visit Provider Physician Assistant
DX: C50.912 Malignant neoplasm of unspecified site of left female breast (principal); Z17.0 Estrogen receptor positive status [ER+]; Z79.810 Long term (current) use of selective estrogen receptor modulators (SERMs); F31.9 Bipolar disorder, unspecified; R23.2 Flushing; M25.50 Pain in unspecified joint; E11.9 Type 2 diabetes mellitus without complications; Z90.13 Acquired absence of bilateral breasts and nipples
CPT/HCPCS: 99212; 99214; 99215; G0463

== ENCOUNTER 2024-07-13 15:00 | Outpatient (RCR) | payer BC, SELFPAY ==
--- NOTE | 2024-04-08 11:30 | ONC.NURNOTE ---
Received an update from [facility] that patient presented for her bilateral breast ultrasound. She thought that she was there for a thyroid US. She declined the exam stating the redness on her breasts were improving. Patient has follow up scheduled for 04/14.
[2024-04-14 15:10] LABS: Albumin* 4.8 g/dL (3.3-5.0); Chloride* 103 mmol/L (96-114); Potassium* 4.4 mmol/L (3.6-5.1); Sodium* 140 mmol/L (135-149)
[2024-04-14 15:12] LABS: Anion Gap 6 mEq/L (7-15); Bilirubin Total* 0.5 mg/dL (0.1-1.5); Carbon Dioxide* 31 mmol/L (20-32); Creatinine* 0.9 mg/dL (0.5-1.5); Estimated Glomerular Filt Rate 75 ml/min
[2024-04-14 15:13] LABS: Alanine Aminotransferase* 54 U/L (4-35); Alkaline Phosphatase* 94 U/L (40-150); Aspartate Amino Transferase* 54 U/L (12-35); Blood Urea Nitrogen* 21 mg/dL (7-30); Calcium* 9.3 mg/dL (8.4-10.6); Glucose* 162 mg/dL (60-115); Total Protein* 7.8 g/dL (6.0-8.3)
== END 2024-09-27 23:59 | disposition home or self-care (01) ==
LOC: CCIC 15:00
PROVIDERS: Physician Assistant; PCP Student in an Organized Health Care Education/Training Program; Referring Provider Student in an Organized Health Care Education/Training Program; Visit Provider Internal Medicine Hematology & Oncology
DX: C50.912 Malignant neoplasm of unspecified site of left female breast (principal); Z17.0 Estrogen receptor positive status [ER+]; Z90.13 Acquired absence of bilateral breasts and nipples; Z79.810 Long term (current) use of selective estrogen receptor modulators (SERMs); R23.2 Flushing
CPT/HCPCS: 36415; 80053; 99214; 99215; G0463

== ENCOUNTER 2025-04-27 14:50 | Outpatient (RCR) | payer BC, SELFPAY ==
--- NOTE | 2024-10-12 14:38 | ONC.NURNOTE ---
Patient called to cancel her 10/19 appointment. She just started a new job and will not have insurance until the end of December. Appointment rescheduled for 01/18.
--- NOTE | 2025-01-23 15:58 | ONC.NURNOTE ---
Breast Cancer Index testing requested via online portal.
--- NOTE | 2025-03-01 15:31 | ONC.NURNOTE ---
At the request of the patient, Breast Cancer Index testing was cancelled. Per [employer], they offered patient financial assistance but she declined.
== END 2025-07-18 23:59 | disposition home or self-care (01) ==
LOC: CCIC 14:50
PROVIDERS: PCP Student in an Organized Health Care Education/Training Program; Visit Provider Internal Medicine Hematology & Oncology
DX: C50.912 Malignant neoplasm of unspecified site of left female breast (principal); Z17.0 Estrogen receptor positive status [ER+]
CPT/HCPCS: 99214; G0463